=== PATIENT | male | born 1955 | race Hispanic/Latino ===

== ENCOUNTER 2019-12-07 07:27 | Day surgery (SDC) | payer OTHER ==
--- OUTSIDE RECORDS SUMMARY | 2019-12-07 07:30 | XMS REPORT ---
:1955 [facility] Address [address] [place] [address] Dr. Anderson. [address] [place] [id number] Care Team Providers Name Role Phone Unavailable Unavailable Unavailable Problems This patient has no known problems. Allergies, Adverse Reactions, Alerts This patient has no known allergies or adverse reactions. Medications This patient has no known medications. Encounters Start End Encounter Admission Attending Care Care Encounter Date/Time Date/Time Type Type Clinicians Facility Department ID 2019-10-20 2019-10-19 Inpatient [facility] MED [id number] 18:41:00 13:46:00 2019-10-03 2019-10-03 Outpatient [facility] CAR [id number] 08:35:00 08:35:00
[2019-12-07] MEDS ORDERED: NA CHLORIDE 0.9% 250 ML ONE ×2 (08:07→10:25)
[2019-12-07 09:17] VITALS: BP 131/62; TEMP 98; O2SAT 100; BMI 27.2
[2019-12-07 10:21] LABS: Urine Appearance CLEAR; Urine Bilirubin NEGATIVE (NEG); Urine Blood NEGATIVE (NEG); Urine Color YELLOW; Urine Glucose NEGATIVE (NEG); Urine Protein NEGATIVE (NEG); Urine pH 6.5 (5.0-7.0)
[2019-12-07 10:33] LABS: Urine Microscopic Reflex NO UMIC
[2019-12-07 15:21] LABS: Hematocrit 23.9 % (39.6-49.0)
== END 2019-12-07 15:17 | disposition home or self-care (01) ==
LOC: DS 07:27
PROVIDERS: ATTEND Internal Medicine Medical Oncology
DX: D64.9 Anemia, unspecified (principal); D72.819 Decreased white blood cell count, unspecified
CPT/HCPCS: 36415; 86900; 86157; 86850; 86901; 85018; 85014; 81003; 36430; P9016 ×2; J7030 ×2

== ENCOUNTER 2020-03-30 11:10 | Day surgery (SDC) | payer OTHER ==
[2020-03-30] MEDS ORDERED: NA CHLORIDE 0.9% 250 ML ONE (11:22)
--- OUTSIDE RECORDS SUMMARY | 2020-03-30 12:08 | XMS REPORT ---
:[address] [facility] t Address [address] [place] [address] Care Team Providers Name Role Phone Unavailable Unavailable Unavailable Problems This patient has no known problems. Allergies, Adverse Reactions, Alerts This patient has no known allergies or adverse reactions. Social History Smoking Status Start Date Stop Date Source Former Smoker [facility] Medications Ordered Filled Start Stop Current Ordering Indication Dosage Frequency Signature Comments Components Source Medication Medication Date Date Medication? Clinician (SIG) Name Name allopurinol allopurinol No 1 Q1D allopurino [facility] 300 mg 300 mg l 300 mg da tablet Take tablet Take tablet Medical 1 tablet 1 tablet Take 1 Group every day every day tablet by oral by oral every day route for route for by oral 30 days. 30 days. route for 30 days. Aspir-81 mg Aspir-81 mg No 1 Q1D Aspir-81 [facility] tablet,charmaine tablet,charmaine mg d a yed release yed release tablet,del Medical Take 1 Take 1 ayed Group tablet tablet release every day every day Take 1 by oral by oral tablet route. route. every day by oral route. atorvastati atorvastati No atorvastat [facility] n 40 mg n 40 mg in 40 mg da tablet tablet tablet Medical Group Claritin 10 Claritin 10 No 1 Q1D Claritin [facility] mg tablet mg tablet 10 mg da Take 1 Take 1 tablet Medical tablet tablet Take 1 Group every day every day tablet by oral by oral every day route. route. by oral route. colchicine colchicine No 1capsul Q1D colchicine [facility] 0.6 mg 0.6 mg e(s) 0.6 mg da capsule capsule capsule Medica l Take 1 Take 1 Take 1 Group capsule capsule capsule every day every day every day by oral by oral by oral route. route. route. colchicine colchicine No 1 Q1D colchicine [facility] 0.6 mg 0.6 mg 0.6 mg da tablet Take tablet Take tablet Medical 1 tablet 1 tablet Take 1 Group every day every day tablet by oral by oral every day route as route as by oral needed for needed for route as 30 days. 30 days. needed for 30 days. ferrous ferrous No ferrous [place] r sulfate sulfate sulfate da 325mg 1 tab 325mg 1 tab 325mg 1 Medical daily daily tab daily Group lisinopril lisinopril No 1 Q1D lisinopril [facility] 20 mg 20 mg 20 mg da tablet Take tablet Take tablet Medical 1 tablet 1 tablet Take 1 Group every day every day tablet by oral by oral every day route. route. by oral route. metoprolol metoprolol No metoprolol [facility] tartrate 25 tartrate 25 tartrate da mg tablet mg tablet 25 mg Medi vish tablet Group ticagrelor ticagrelor No 1 BID ticagrelor [facility] 90 mg 90 mg 90 mg da tablet Take tablet Take tablet Medical 1 tablet 1 tablet Take 1 Group twice a day twice a day tablet by oral by oral twice a route. route. day by oral route. Immunizations Ordered Immunization Filled Immunization Date Status Commen ts Source Name Name influenza, influenza, 2019-09-05 Completed [facility] injectable, injectable, 00:00:00 [facility] p quadrivalent quadrivalent Vital Signs Vital Name Observation Time Observation Value Comments Source BP Diastolic 2019-11-28 00:00:00 70 mm[facility]Hg[facility] Height 2019-11-28 00:00:00 67 [facility]_i[facility] BMI (Body Mass 2019-11-28 00:00:00 28.3 kg/m2 [facility]) Group BP Systolic 2019-11-28 00:00:00 123 mm[Hg] [facility] Body Weight 2019-11-28 00:00:00 2888 [oz_av] [facility] BP Diastolic 2019-09-08 00:00:00 66 mm[Hg] [facility] Height 2019-09-08 00:00:00 67 [in_i] [facility] BMI (Body Mass 2019-09-08 00:00:00 27 kg/m2 [facility]) Group BP Systolic 2019-09-08 00:00:00 135 mm[Hg] [facility] Body Weight 2019-09-08 00:00:00 172.2 [lb_av] [facility] BP Diastolic 2018-12-24 00:00:00 70 mm[Hg] [facility] Height 2018-12-24 00:00:00 67 [in_i] [facility] BMI (Body Mass 2018-12-24 00:00:00 28 kg/m2 [facility]) Group BP Systolic 2018-12-24 00:00:00 142 mm[Hg] [facility] Body Weight 2018-12-24 00:00:00 178.5 [lb_av] [facility] BP Diastolic 2018-12-01 00:00:00 73 mm[Hg] [facility] Height 2018-12-01 00:00:00 67 [in_i] [facility] BMI (Body Mass 2018-12-01 00:00:00 28 kg/m2 [facility]) Group BP Systolic 2018-12-01 00:00:00 141 mm[Hg] [facility] Body Weight 2018-12-01 00:00:00 2856 [oz_av] [facility] Procedures Procedure Date / Time Performed Performing Clinician [facility] e US, duplex, arterial, 2018-12-01 00:00:00 [facility] lower extremity Group Encounters Start End Encounter Admission Attending Care Care Encounter Source Date/Time Date/Time Type Type Clinicians Facility Department ID 2019-12-15 Outpatient [facility] MED [id number] BL 16:19:55 2019-11-28 2019-11-28 Kota [facility] [place] - [id number] [facility] 00:00:00 00:00:00 Christiano Khan Medical Medical MD: [address] [place] [address] [address], [place] [address] , Ph. 2019-10-20 2019-10-19 Inpatient [facility] MED [id number] [facility] 18:41:00 13:46:00 2019-10-03 2019-10-03 Outpatient [facility] CAR [id number] [facility] 08:35:00 08:35:00 2019-09-08 2019-09-08 [place] [facility] [place] - [id number] [facility] 00:00:00 00:00:00 Christiano [facility] Medical MD: [address] [place] [address] Family [address], [place] [address] , Ph. 2018-12-24 2018-12-24 N[place] [facility] [place] - [id number] M atagor 00:00:00 00:00:00 Doug Michel MD: Medical Medica l [address] [place] [address], General [address], [place] [address] , Ph. [phone] 2018-12-01 2018-12-01 Kota [facility] [place] - [id number] [facility] 00:00:00 00:00:00 Charmaine Chance Medical MD: [address] [place] [address], Family [address], [place] [address] , Ph. Results This patient has no known results.
[2020-03-30 15:48] VITALS: BP 125/58; TEMP 98.5; O2SAT 100; BMI 28.5
[2020-03-30 17:33] LABS: Hematocrit 25.7 % (39.6-49.0)
== END 2020-03-30 17:23 | disposition home or self-care (01) ==
LOC: DS 11:10
PROVIDERS: ATTEND Internal Medicine Medical Oncology
DX: D64.9 Anemia, unspecified (principal); D75.81 Myelofibrosis; I25.10 Atherosclerotic heart disease of native coronary artery without angina pectoris; D59.9 Acquired hemolytic anemia, unspecified
CPT/HCPCS: 36415; 86900; 86850; 86870; 86901; 85018; 85014; 86922 ×2; 36430; P9040 ×2; J7030

== ENCOUNTER 2020-04-27 07:13 | Day surgery (SDC) | payer OTHER ==
[2020-04-26 08:41] LABS: Absolute Lymphocytes (CBC) 0.6 K/uL (0.7-4.9); Basophils % 1.1 % (0-1.3); Lymphocytes % 22.3 % (15.3-44.8); MPV 9.3 fL (7.6-11.3); RBC Red Blood Cell Count 2.18 M/uL (4.33-5.43)
[2020-04-26 13:21] LABS: Toxic Granulation NOTED
[2020-04-26 13:22] LABS: Anisocytosis 2+; Blood Morphology Comment NOTED (NOT SEEN); Elliptocytes 1+; Platelet Estimate ADEQ; Platelets, Giant 2+; Polychromasia 1+; Teardrop Cell 1+
[2020-04-26 13:23] LABS: Hematocrit 19.3 % (39.6-49.0)
--- OUTSIDE RECORDS SUMMARY | 2020-04-27 07:19 | XMS REPORT | Continuity of Care Document ---
:1955 Author Organization [facility] t Address [address] [place] [address] Care Team Providers Name Role Phone Unavailable Unavailable Unavailable Problems This patient has no known problems. Allergies, Adverse Reactions, Alerts This patient has no known allergies or adverse reactions. Social History Smoking Status Start Date Stop Date Source Former Smoker [facility] Medications Ordered Filled Start Stop Current Ordering Indication Dosage Frequency Signature Comments Components Source Medication Medication Date Date Medication? Clinician (SIG) Name Name allopurinol allopurinol No allopurino [facility] 300 mg 300 mg l [...] mg da tablet tablet tablet Medical Group Bactrim DS Bactrim DS No 1 Q12H Bactrim DS [facility] 800 mg-160 800 mg-160 800 mg-160 da mg tablet mg tablet mg tablet Medical Take 1 Take 1 Take 1 Group tablet tablet tablet every 12 every 12 every 12 hours by hours by hours by oral route oral route oral route for 10 for 10 for 10 days. days. days. Brilinta 90 Brilinta 90 No Brilinta [facility] mg tablet mg tablet 90 mg da Take 1 Take 1 tablet Medical tablet tablet Take 1 Group twice a day twice a day tablet by oral by oral twice a route. route. day by oral route. Claritin 10 Claritin 10 No 1 Q1D [...] oral route. route. route. colchicine colchicine No colchicine [facility] 0.6 mg 0.6 mg 0.6 mg da tablet Take tablet Take tablet Medical 1 tablet 1 tablet Take 1 Group every day every day tablet by oral by oral every day route as route as by oral needed for needed for route as 30 days. 30 days. needed for 30 days. danazol 200 danazol 200 No 1capsul BID danazol [facility] mg capsule mg capsule e(s) 200 mg d a Take 1 Take 1 capsule Medical capsule capsule Take 1 Group twice a day twice a day capsule by oral by oral twice a route. route. day by oral route. ferrous ferrous No ferrous [facility] sulfate sulfate sulfate da 325mg 1 tab 325mg 1 tab 325mg 1 Medical daily daily tab daily Group Jakafi 10 Jakafi 10 No Jakafi 10 [facility] mg tablet mg tablet mg tablet da Medical Group lisinopril lisinopril No lisinopril [facility] 20 mg 20 mg 20 mg da tablet Take tablet Take tablet Medical 1 tablet 1 tablet Take 1 Group every day every day tablet by oral by oral every day route. route. by oral route. methylpredn methylpredn No methylpred [facility] isolone 4 isolone 4 nisolone 4 da mg tablets mg tablets mg tablets Medical in a dose in a dose in a dose Group pack Take 1 pack Take 1 pack Take dose pk by dose pk by 1 dose pk oral route oral route by oral as as route as directed. directed. directed. metoprolol metoprolol No metoprolol [facility] tartrate 25 tartrate 25 tartrate da mg tablet mg tablet 25 mg Medi vish tablet Group Immunizations Ordered Immunization Filled Immunization Date Status Commen ts Source Name Name influenza, influenza, 2019-09-05 Completed [place] injectable, injectable, 00:00:00 [facility] Grou p quadrivalent quadrivalent Vital Signs Vital Name Observation Time Observation Value Comments Source BP Diastolic 2020-04-23 00:00:00 63 mm[Hg] [facility] Height 2020-04-23 00:00:00 67 [in_i] [facility] BMI (Body Mass 2020-04-23 00:00:00 26.8 kg/m2 [facility] Index) Group BP Systolic 2020-04-23 00:00:00 115 mm[Hg] [facility] Body Weight 2020-04-23 00:00:00 2736 [oz_av] [facility] BP Diastolic 2019-11-28 00:00:00 70 mm[Hg] [facility] Height 2019-11-28 00:00:00 67 [in_i] [facility] BMI (Body Mass 2019-11-28 00:00:00 28.3 kg/m2 [facility] Medical Index) Group BP Systolic 2019-11-28 00:00:00 123 mm[Hg] [facility] Body Weight 2019-11-28 00:00:00 2888 [oz_av] [facility] BP Diastolic 2019-09-08 00:00:00 66 mm[Hg] [facility] Height 2019-09-08 00:00:00 67 [in_i] [facility] BMI (Body Mass 2019-09-08 00:00:00 27 kg/m2 [facility] Medical Index) Group BP Systolic 2019-09-08 00:00:00 135 mm[Hg] [facility] Body Weight 2019-09-08 00:00:00 172.2 [lb_av] [facility] BP Diastolic 2018-12-24 00:00:00 70 mm[Hg] [facility] Height 2018-12-24 00:00:00 67 [in_i] [facility] BMI (Body Mass 2018-12-24 00:00:00 28 kg/m2 [facility] BP Systolic 2018-12-24 00:00:00 142 mm[Hg] [facility] Body Weight 2018-12-24 00:00:00 178.5 [lb_av] [facility] BP Diastolic 2018-12-01 00:00:00 73 mm[Hg] [facility] Height 2018-12-01 00:00:00 67 [in_i] [facility] BMI (Body Mass 2018-12-01 00:00:00 28 kg/m2 [facility] Index) Group BP Systolic 2018-12-01 00:00:00 141 mm[Hg] [facility] Body Weight 2018-12-01 00:00:00 2856 [oz_av] [facility] Procedures Procedure Date / Time Performed Performing Clinician Sour e US, duplex, arterial, 2018-12-01 00:00:00 [facility] lower extremity [facility] Plan of Care Planned Activity Planned Date Details Comments Source Diagnostic Test 2020-04-23 urinalysis, dipstick [facility] Pending 00:00:00 [code = urinalysis, Group dipstick] Diagnostic Test 2020-04-23 culture, urine + [facility] Pending 00:00:00 sensitivity [code = Group culture, urine + sensitivity] Instructions [facility] Encounters Start End Encounter Admission Attending Care Care Encounter Source Date/Time Date/Time Type Type Clinicians Facility Department ID 2019-12-15 Outpatient [facility] MED [id number] MH BL 16:19:55 2020-04-23 2020-04-23 Angélica [facility] [place] - [id number] M atagor 00:00:00 00:00:00 Discovery andreina Luis GEOPHYSICAL 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 2019-11-28 2019-11-28 Kota [facility] [place] - [id number] [facility] 00:00:00 00:00:00 Christiano Khan [facility] Medical MD: [address] [address] , Ph. 2019-10-20 2019-10-19 Inpatient U [facility] MED [id number] [facility] 18:41:00 13:46:00 2019-10-03 2019-10-03 Outpatient [facility] CAR [id number] [facility] 08:35:00 08:35:00 2019-09-08 2019-09-08 Kota [facility] [place] - [id number] [facility] 00:00:00 00:00:00 Christiano Khan Medical Medical MD: [address] [place] [address] Family [address], [place] [address] , Ph. 2018-12-24 2018-12-24 N[place] [facility] [place] - [id number] Barron atajeremy 00:00:00 00:00:00 Doug Michel MD: Medical Medica l [address] [place] [address], General [address], [place] [address] , Ph. [phone] 2018-12-01 2018-12-01 Kota [facility] [place] - [id number] [facility] 00:00:00 00:00:00 Charmaine Chance Medical MD: [address] [place] [address], [facility] [address], [place] [address] , Ph. Results Test Description Test Time Test Comments Results Result Comments Source Urinalysis complete W Reflex Culture panel - Urine 2018-11-17 2 07:24:00 Test Item Value Reference Range Interpretation Comme nts Color of Urine by Auto (test code = 07052-6) yellow Appearance of Urine (test code = 5767-9) clear clear Glucose [Presence] in Urine by Automated test strip negative ne gative (test code = 84749-1) Bilirubin.total [Mass/volume] in Urine (test code = negative ne gative 1978-04) Ketones [Mass/volume] in Urine by Automated test strip negative negative (test code = 01195-3) Specific gravity of Urine by Automated test strip (test 1.021 1.003-1.030 code = 70068-7) blood urine (test code = blood urine) negative negative pH of Urine (test code = 2756-5) 5.500 5-9 protein urine (UA) (test code = protein urine (UA)) trace ne gative Urobilinogen [Presence] in Urine (test code = 39913-7) normal 0.2-1.0 Nitrite [Presence] in Urine by Test strip (test code = negative negative 5802-4) Leukocyte esterase [Presence] in Urine by Automated negative ne gative test strip (test code = 76239-9) Erythrocytes [#/volume] in Urine by Automated count <1 0- 5 (test code = 798-9) Leukocytes [#/area] in Urine sediment by Automated <1 0-5 count (test code = 10038-4) Epithelial cells [Presence] in Urine sediment by Light <1 0-5 microscopy (test code = 89442-1) Bacteria identified in Urine by Culture (test code = none detected none detect 630-4) Casts [#/area] in Urine sediment by Automated count none detected n one detect (test code = 66708-8) urine culture added? (test code = urine culture added?) [facility] W Auto Differential panel - [id number] 07:24:00 Test Item Value Reference Range Interpretation Comments white blood count (test code = 4.5 K/uL 4.0-12.3 white blood count) red blood count (test code = red 3.05 M/uL 3.80-5.80 L blood count) Hemoglobin [Mass/volume] in Blood 8.0 g/dL 11.67-17.22 L (test code = 718-7) hematocrit (test code = hematocrit) 26.1 % 35.0-51.0 L Erythrocyte mean corpuscular volume 85.4 fL 78-96 [Entitic volume] (test code = 37364-2) Erythrocyte mean corpuscular 26.1 pg 26.8-33.4 L hemoglobin [Entitic mass] (test code = 20405-5) mean corpuscular HGB conc (test 30.6 g/dL 32.3-36.7 L code = mean corpuscular HGB conc) red cell distribution width (test 22.0 % 11.6-15.4 H code = red cell distribution width) Platelets [#/volume] in Blood (test 312 K/uL 115-328 code = 48346-9) Platelet mean volume [Entitic 7.5 fL 8.4-11.8 L volume] in Blood (test code = 02754-8) Neutrophils.band form/100 58.1 % 44.7-82.4 leukocytes in Blood (test code = 17067-6) Lymphocytes/100 leukocytes in Body 28.6 % 10.0-50.0 fluid (test code = 67218-8) Monocytes/100 leukocytes in Blood 7.4 % 3.9-13.4 by Automated count (test code = 5905-5) Eosinophils/100 leukocytes in Blood 4.4 % 0.0-6.43 by Automated count (test code = 713-8) Basophils/100 leukocytes in Blood 1.5 % 0.0-0.72 H by Automated count (test code = 706-2) [facility], [id number] 07:24:00 NeutrophilsBandLymphocyteAtypical LymphMonocyteEosinophilBasophilPlatelet EstimatePlatelet MorphologyAnisocytosisGiant PlateletsUmmc [place] Comprehensive metabolic 2000 panel - Serum or [id number] 07:24:00 Test Item Value Reference Range Interpretation Comments glucose (test code = glucose) 110 mg/dL 82-115 Urea nitrogen [Mass/volume] in 18 mg/dL 8-23 Serum or Plasma (test code = 3094-0) Osmolality of Serum or Plasma 288 280-300 (test code = 2692-2) creatinine (test code = 1.1 mg/dL 0.70-1.20 creatinine) glomerular filtration rate (test >60.00 code = glomerular filtration rate) Urea nitrogen/Creatinine [Mass 16.4 12-20 Ratio] in Serum or Plasma (test code = 3097-3) sodium level (test code = sodium 143 mmol/L 135-145 level) Potassium [Moles/volume] in Body 4.9 mmol/L 3.5-5.2 fluid (test code = 2821-7) chloride level (test code = 106 mmol/L 98-108 chloride level) CO2 (test code = CO2) 26 mmol/L 21-32 anion gap (test code = anion gap) 15.9 mEq/L 12-20 calcium level (test code = calcium 9.6 mg/dL 8.8-10.2 level) total protein (test code = total 7.6 g/dL 6.6-8.7 protein) albumin (test code = albumin) 4.6 g/dL 3.5-5.2 globulin (test code = globulin) 3.0 gm/dL A/G ratio (test code = A/G ratio) 1.5 >1.0 bilirubin,total (test code = 1.6 mg/dL 0.0-1.2 H bilirubin,total) AST/SGOT (test code = AST/SGOT) 26 U/L 15-40 Alanine aminotransferase 12 U/L 0-41 [Enzymatic activity/volume] in Serum or Plasma (test code = 1742-6) Alkaline phosphatase [Enzymatic 102 U/L 40-130 activity/volume] in Serum or Plasma (test code = 6768-6) [facility] panel - Serum or [id number] 07:24:00 Test Item Value Reference Range Interpretation Comments cholesterol level (test code = 104 mg/dL 150-200 L cholesterol level) triglycerides level (test code = 157 mg/dL <150 H triglycerides level) HDL cholesterol (test code = HDL 22 mg/dL >55 L cholesterol) LDL cholesterol direct (test code = 61 mg/dL <100 LDL cholesterol direct) cholesterol risk ratio (test code = 4.727 cholesterol risk ratio) [facility] A1c [Mass/volume] in [id number] 07:24:00 Test Item Value Reference Range Interpretation Comments Hemoglobin A1c in Blood (test code = 4.9 % 4.0-6.0 03080-2) [facility] [Units/volume] in Serum or [id number] 07:24:00 Test Item Value Reference Range Interpretation Comments Thyrotropin [Units/volume] in 2.62 uIU/mL 0.36-3.74 Serum or Plasma (test code = 3016-3) [facility], serum or [id number] 07:24:00 Test Item Value Reference Range Interpretation Comments total prostate screening (test 0.35 NG/mL 0.0-4.00 code = total prostate screening) [facility]
[2020-04-27] MEDS ORDERED: NA CHLORIDE 0.9% 500 ML ONE (07:44)
[2020-04-27 08:43] VITALS: O2SAT 100; BMI 27.6
[2020-04-27 08:44] VITALS: BP 102/43; TEMP 97.1
[2020-04-27 14:37] LABS: Hematocrit 22.2 % (39.6-49.0)
== END 2020-04-27 14:26 | disposition home or self-care (01) ==
LOC: DS 07:13
PROVIDERS: ATTEND Internal Medicine Medical Oncology
DX: D64.9 Anemia, unspecified (principal); D75.81 Myelofibrosis; D59.9 Acquired hemolytic anemia, unspecified
CPT/HCPCS: 85025; 36415; 86900; 86850; 86901; 85018; 85014; 86922 ×2; 36430; P9040 ×2; J7030

== ENCOUNTER 2020-06-01 13:43 | Inpatient (IN) | payer OTHER ==
--- OUTSIDE RECORDS SUMMARY | 2020-06-01 14:00 | XMS REPORT | Continuity of Care Document ---
:1955 Author Organization [facility] t Address [address] [place] [address] Care Team Providers Name Role Phone MARKY VILLARREAL Primary Care Physician Unavailable MARKY VILLARREAL Attending Clinician Unavailable KATINA QUINTANA Attending Clinician Unavailable Magui Castellanos RN Attending Clinician Unavailable Rhonda Olivarez RN Attending Clinician Unavailable Josesito VELASCO MSN, Stanleyu Attending Clinician Unavailable Katina Melgar Attending Clinician Warner Ramirez RN Attending Clinician Unavailable Eric FARAH Attending Clinician Sherita FIGUEROA Attending Clinician Miles DURHAM S Attending Clinician Unavailable TALHA Attending Clinician Unavailable Talha DRY HOUSE ATTENDANT Attending Clinician Phi FERRER Attending Clinician TIERRA PETERSON Attending Clinician Unavailable Tierra Peterson MD Attending Clinician Karley Muñoz MD Attending Clinician Karley MUÑOZ Attending Clinician Unavailable Chavez FIGUEROA Attending Clinician Unavailable Audie MACDONALD Attending Clinician Josias FIGUEROA Attending Clinician Kenya VELASCO, M Attending Clinician Unavailable Mickey VELASCO Attending Clinician Unavailable Saul Rock Attending Clinician Tone Florentino RN Attending Clinician Unavailable Patrick Fajardo MD Attending Clinician Phi VELASCO Attending Clinician Sydni FIGUREOA Attending Clinician Unavailable Torrey VELASCO Attending Clinician Unavailable María Carlos Attending Clinician Unavailable SHERITA Admitting Clinician Unavailable Payers Payer Name Policy Type Policy Number Effective Date Expiration Date Shaun holcomb [facility] [id number] 2020 00:00:00 ALL SAVEGHDAA [facility] [id number] 2016 00:00:00 Problems Condition Condition Condition Status Onset Resolution Last Treating Co mments Source Name Details Category Date Date Treatment Clinician Date Hyperkalem Hyperkalem Disease Active 2019-0 M D ia ia 05-02 Anderso 00:00: n 00 Other Other Disease Active acute acute 05-01 Anderso kidney kidney 00:00: n failure failure 00 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 Social History Social Habit Start Date Stop Date Quantity Comments Source History of tobacco Cigarette Smoker MD [place]man use Sex Assigned At M MD Barros on Exposure to Not sure MD Pittman SARS-CoV-2 (event) Cigarettes smoked 2020-05-01 2020-05-01 MD Yeison posada current (pack per 00:00:00 00:00:00 day) - Reported Cigarette 2020-05-01 2020-05-01 MD [place]man pack-years 00:00:00 00:00:00 Tobacco use and 2020-05-01 2020-05-01 Never used MD Barros on exposure 00:00:00 00:00:00 Alcohol intake 2020-05-01 2020-05-01 Ex-drinker MD Julia burnham 00:00:00 00:00:00 (finding) Tobacco Comment 2020-01-19 2020-01-19 Have not smoke in MD Pittman 00:00:00 00:00:00 years Smoking Status Start Date Stop Date Source Former smoker 2020-05-01 00:00:00 2020-05-01 00:00:00 MD Angel slade Medications Ordered Filled Start Stop Current Ordering Indication Dosage Frequency Signature Comments Components Source Medication Medication Date Date Medication? Clinician (SIG) Name Name valACYclovi 2020- Yes Myelofibros 500mg Take 1 MD r (VALTREX) 05-11 is tablet Angel so 500 mg 00:00: 04:59 (500 mg) n tablet 00 :00 by mouth daily for 30 days. Start after completion of the 1000mg BID dose aspirin 81 2020-0 Yes 81mg Take 81 mg M D mg EC 6-25 by mouth Anderso tablet 19:16: daily. n 34 ticagrelor 2019- Yes 90mg Take 90 mg M D (BRILINTA) 25 by mouth Angel so 90 mg 19:16: twice n tablet 34 daily. cetirizine Yes 10mg Take 10 mg M D (ZyrTEC) 10 25 by mouth Yeison rso mg tablet 19:16: daily. n 34 ferrous 2019- No 325mg Take 325 MD sulfate 325 05-05 06-20 mg by Papo o mg (65 mg 21:58: 00:00 mouth n elemental 25 :00 daily. iron per tablet) tablet sulfamethox 2019- No 1{tbl} Take 1 M D azole-trime 05-05 06-20 tablet by An derso thoprim 21:58: 00:00 mouth n (BACTRIM 25 :00 twice DS) 800 daily. mg-160 mg per tablet sodium Yes Myelofibros Inject 10 MD chloride 05-05 is mL (1 Anderso (NS) 0.9% 00:00: syringe) n flush 00 into each syringe 10 lumen of mL central venous catheter daily as directed. allopurinol Yes Myelofibros 150mg Take 0.5 MD (ZYLOPRIM) 05-04 is tablets Papo o 300 mg 00:00: (150 mg) n tablet 00 by mouth daily. ertapenem 2019- No Myelofibros 1000mg Infuse MD (INVanz) IV 05-04 is 1,000 mg And erso prescriptio 00:00: 04:59 intravenou n n (Home 00 :00 sly daily Use) for 8 days. valACYclovi 2019-2019- No Myelofibros 1000mg Take 1 MD r (VALTREX) 05-04 is tablet Angel so 1000 mg 00:00: 04:59 (1,000 mg) n tablet 00 :00 by mouth every 12 (twelve) hours for 7 days. ertapenem 2019- No Myelofibros 1000mg Infuse MD (INVanz) IV 05-04 is 1,000 mg And erso prescriptio 00:00: 00:00 intravenou n n (Home 00 :00 sly daily. Use) danazol 2019- Yes Myelofibros 200mg Take 1 MD (DANOCRINE) 04-03 is capsule Angel so 200 mg 00:00: (200 mg) n capsule 00 by mouth twice daily. ciprofloxac 2019- Myelofibros 500mg Take 1 MD in HCl 04-03 is tablet Anderso (CIPRO) 500 00:00: 00:00 (500 mg) n mg tablet 00 :00 by mouth twice daily for 14 days. loratadine 2019- No 10mg Take 10 mg MD (CLARITIN) 02-13 by mouth Yeison rso 10 mg 13:41: 00:00 daily. n tablet 42 :00 JAKAFI 10 2019- Yes Myelofibros 10mg Take 1 MD mg tablet 3-13 is tablet (10 Yeison rso 00:00: mg) by n 00 mouth twice daily. atorvastati 2019- Yes 1{tbl} Take 1 MD n (LIPITOR) 3-02 tablet by And erso 40 mg 00:00: mouth n tablet 00 daily. lisinopril 2019- 2020- No 1{tbl} Take 1 MD (PRINIVIL,Z 01-14 tablet by An derso ESTRIL) 20 00:00: 00:00 mouth n mg tablet 00 :00 daily. allopurinol 2019- 2020- No 1{tbl} Take 1 M D (ZYLOPRIM) 01-14 tablet by And erso 300 mg 00:00: 00:00 mouth n tablet 00 :00 daily. metoprolol 2019-0 Yes 1{tbl} Take 1 MD tartrate 2-08 tablet by Papo scruggs (LOPRESSOR) 00:00: mouth n 25 mg 00 daily. tablet Hold if SBP<140. colchicine 2018-11 2020- No 1{capsu Take 1 M D 0.6 mg cap 2-05 21-20 le} capsule by An derso 00:00: 00:00 mouth n 00 :00 daily. allopurinol allopurinol No allopurino [place] 300 mg [...] Source Name Name influenza, influenza, 2019-09-05 Completed Ness injectable, injectable, 00:00:00 [facility] quadrivalent quadrivalent Vital Signs Vital Name Observation Time Observation Value Comments Source WEIGHT 2020-05-10 00:00:00 77.2 kg WEIGHT 2020-05-10 00:00:00 77.2 kg BP Diastolic 2020-04-23 00:00:00 63 mm[Hg] [facility] Height 2020-04-23 00:00:00 67 [in_i] [facility] BMI (Body Mass 2020-04-23 00:00:00 26.8 kg/m2 [facility] BP Systolic 2020-04-23 00:00:00 115 mm[Hg] [facility] Body Weight 2020-04-23 00:00:00 2736 [oz_av] [facility] BP Diastolic 2019-11-28 00:00:00 70 mm[Hg] [facility] Height 2019-11-28 00:00:00 67 [in_i] [facility] BMI (Body Mass 2019-11-28 00:00:00 28.3 kg/m2 [facility]) Group BP Systolic 2019-11-28 00:00:00 123 mm[Hg] [facility] Body Weight 2019-11-28 00:00:00 2888 [oz_av] [facility] BP Diastolic 2019-09-08 00:00:00 66 mm[Hg] [facility] Height 2019-09-08 00:00:00 67 [in_i] [facility] BMI (Body Mass 2019-09-08 00:00:00 27 kg/m2 [facility] BP Systolic 2019-09-08 00:00:00 135 mm[Hg] [facility] Body Weight 2019-09-08 00:00:00 172.2 [lb_av] [facility] BP Diastolic 2018-12-24 00:00:00 70 mm[Hg] [facility] Height 2018-12-24 00:00:00 67 [in_i] [facility] BMI (Body Mass 2018-12-24 00:00:00 28 kg/m2 [facility] BP Systolic 2018-12-24 00:00:00 142 mm[Hg] [facility] Body Weight 2018-12-24 00:00:00 178.5 [lb_av] [facility] BP Diastolic 2018-12-01 00:00:00 73 mm[Hg] [facility] Height 2018-12-01 00:00:00 67 [in_i] [facility] BMI (Body Mass 2018-12-01 00:00:00 28 kg/m2 [facility]) [facility] BP Systolic 2018-12-01 00:00:00 141 mm[Hg] [facility] Body Weight 2018-12-01 00:00:00 2856 [oz_av] [facility] Systolic blood 2020-05-10 19:12:11 156 mm[Hg] pressure Diastolic blood 2020-05-10 19:12:11 78 mm[Hg] MD Madelyn larsen pressure Heart rate 2020-05-10 19:12:11 63 /min MD Angel slade Body temperature 2020-05-10 19:12:11 36.72 Jovita MD Genesis marshallon Respiratory rate 2020-05-10 19:12:11 16 /min MD Genesis li Body weight 2020-05-10 19:12:11 77.2 kg MD Angel slade BMI 2020-05-10 19:12:11 27.95 kg/m2 MD Angel slade Oxygen saturation in 2020-05-10 19:12:11 100 /min MD [place] Arterial blood by Pulse oximetry Body height 2020-05-01 19:09:37 166.2 cm MD Angel slade Procedures Procedure Date / Time Performing Clinician Source Performed TYPE AND SCREEN 2020-05-10 13:31:00 Jennifer Palencia MD COMPLETE BLOOD COUNT W/ 2020-05-10 13:31:00 Jennifer Palencia MD DIFFERENTIAL TOTAL PROTEIN 2020-05-10 13:31:00 Jennifer Palencia MD ALBUMIN LEVEL 2020-05-10 13:31:00 Jennifer Palencia MD CALCIUM LEVEL TOTAL 2020-05-10 13:31:00 Jennifer Palencia MD And erson PHOSPHORUS LEVEL 2020-05-10 13:31:00 Jennifer Palencia MD Papo on GLUCOSE, RANDOM 2020-05-10 13:31:00 Jennifer Palencia MD BLOOD UREA NITROGEN 2020-05-10 13:31:00 Jennifer Palencia MD And erson SERUM CREATININE 2020-05-10 13:31:00 Jennifer Palencia MD on URIC ACID 2020-05-10 13:31:00 Jennifer Palencia MD FRACTIONATED BILIRUBIN 2020-05-10 13:31:00 Jennifer Palencia MD ALKALINE PHOSPHATASE 2020-05-10 13:31:00 Jennifer Palencia MD LACTATE DEHYDROGENASE 2020-05-10 13:31:00 Palencia, Jennifer MD A nderson ALANINE AMINOTRANSFERASE 2020-05-10 13:31:00 Jennifer Palencia ELECTROLYTE PANEL 2020-05-10 13:31:00 Jennifer Palencia MD Angel son MAGNESIUM LEVEL 2020-05-10 13:31:00 Jennifer Palencia MD Andbismark n ABORH 2020-05-10 13:31:00 Jennifer Palencia MD Andbismark burnham ANTIBODY SCREEN 2020-05-10 13:31:00 Jennifer Palencia MD Andbismark burnham Results CBC 2020-05-10 13:31:00 Jennifer Palencia MD MANUAL DIFFERENTIAL 2020-05-10 13:31:00 Jennifer Palencia MD And erson SERUM CREATININE 2020-05-10 13:31:00 Jennifer Palencia MD Papo on .GLOMERULAR FILTRATION RATE 2020-05-10 13:31:00 Luz Palencia MD TMP INTERPRETATION ANTIBODY 2020-05-10 13:31:00 Luz Palencia MD SCREEN NEGATIVE CLOT EXPIRATION DATE 2020-05-10 13:31:00 Jennifer Palencia MD COMPLETE BLOOD COUNT W/ 2020-05-05 08:20:00 Marky Villarreal MD DIFFERENTIAL GLUCOSE, RANDOM 2020-05-05 08:20:00 Marky Villarreal MD CALCIUM LEVEL TOTAL 2020-05-05 08:20:00 Marky Villarreal MD And erson BLOOD UREA NITROGEN 2020-05-05 08:20:00 Marky Villarreal MD And erson SERUM CREATININE 2020-05-05 08:20:00 Marky Villarreal MD Papo on POTASSIUM LEVEL 2020-05-05 08:20:00 Marky Villarreal MD Andbismark n MAGNESIUM LEVEL 2020-05-05 08:20:00 Marky Villarreal MD Andbismark burnham CHLORIDE LEVEL 2020-05-05 08:20:00 Marky Villarreal MD Andbismark n CARBON DIOXIDE LEVEL 2020-05-05 08:20:00 Marky Villarreal MD TOTAL PROTEIN 2020-05-05 08:20:00 Marky Villarreal MD n ALBUMIN LEVEL 2020-05-05 08:20:00 Marky Villarreal MD Andbismark burnham PHOSPHORUS LEVEL 2020-05-05 08:20:00 Marky Villarreal MD Papo on FRACTIONATED BILIRUBIN 2020-05-05 08:20:00 Marky Villarreal MD ALKALINE PHOSPHATASE 2020-05-05 08:20:00 Marky Villarreal MD ALANINE AMINOTRANSFERASE 2020-05-05 08:20:00 Marky Villarreal URIC ACID 2020-05-05 08:20:00 Marky Villarreal MD LACTATE DEHYDROGENASE 2020-05-05 08:20:00 Marky Villarreal MD nderson PROTHROMBIN TIME 2020-05-05 08:20:00 Marky Villarreal MD Papo on PARTIAL THROMBOPLASTIN TIME 2020-05-05 08:20:00 Adelaida Villarreal MD DIMER 2020-05-05 08:20:00 Marky Villarreal MD FIBRINOGEN ACTIVITY 2020-05-05 08:20:00 Marky Villarreal MD And erson BASIC METABOLIC PANEL, 2020-05-05 08:20:00 Ezequiel Bhat MD CALCIUM IONIZED TYPE AND SCREEN 2020-05-05 08:20:00 MD Zain Lomo ABORH 2020-05-05 08:20:00 MD Zain Lo ANTIBODY SCREEN 2020-05-05 08:20:00 MD Zain Lo BLOOD UREA NITROGEN 2020-05-05 08:20:00 Florencio Cabrera MD Angel son ELECTROLYTE PANEL 2020-05-05 08:20:00 Florencio Cabrera MD CALCIUM IONIZED, VENOUS 2020-05-05 08:20:00 Florencio Cabrera MD nderson Results CBC 2020-05-05 08:20:00 Marky Villarreal MD MANUAL DIFFERENTIAL 2020-05-05 08:20:00 Marky Villarreal MD And erson SERUM CREATININE 2020-05-05 08:20:00 aMrky Villarreal MD Papo on .GLOMERULAR FILTRATION RATE 2020-05-05 08:20:00 Adelaida Villarreal MD ANION GAP 2020-05-05 08:20:00 Marky Villarreal MD CLOT EXPIRATION DATE 2020-05-05 08:20:00 Tierra Peterson MD And alex Olson TMP INTERPRETATION ANTIBODY 2020-05-05 08:20:00 MD Zain Lo SCREEN NEGATIVE Wesley TRANSFUSE RED BLOOD CELLS 2020-05-04 23:39:17 Barron Lo BASIC METABOLIC PANEL, 2020-05-04 23:22:00 Ezequiel Bhat MD CALCIUM IONIZED GLUCOSE LEVEL 2020-05-04 23:22:00 Florencio Cabrera MD BLOOD UREA NITROGEN 2020-05-04 23:22:00 Florencio Cabrera MD son ELECTROLYTE PANEL 2020-05-04 23:22:00 Florencio Cabrera MD SERUM CREATININE 2020-05-04 23:22:00 Florencio Cabrera MD .GLOMERULAR FILTRATION RATE 2020-05-04 23:22:00 Florencio Cabrera MD CALCIUM IONIZED, VENOUS 2020-05-04 23:22:00 Florencio Cabrera MD nderson XR CHEST 2 VW 2020-05-04 19:35:00 Jennifer Palencia MD PREPARE RBC 2020-05-04 10:35:00 MD Zain Lo COMPLETE BLOOD COUNT W/ 2020-05-04 09:17:00 Marky Villarreal MD DIFFERENTIAL GLUCOSE, RANDOM 2020-05-04 09:17:00 Marky Villarreal MD CALCIUM LEVEL TOTAL 2020-05-04 09:17:00 Marky Villarreal MD And erson BLOOD UREA NITROGEN 2020-05-04 09:17:00 Marky Villarreal MD And erson SERUM CREATININE 2020-05-04 09:17:00 Marky Villarreal MD Papo on SODIUM LEVEL 2020-05-04 09:17:00 Marky Villarreal MD POTASSIUM LEVEL 2020-05-04 09:17:00 Marky Villarreal MD Andbismark n MAGNESIUM LEVEL 2020-05-04 09:17:00 Marky Villarreal MD CHLORIDE LEVEL 2020-05-04 09:17:00 Marky Villarreal MD Andbismark n CARBON DIOXIDE LEVEL 2020-05-04 09:17:00 Marky Villarreal MDson TOTAL PROTEIN 2020-05-04 09:17:00 Marky Villarreal MD Andbismark n ALBUMIN LEVEL 2020-05-04 09:17:00 Marky Villarreal MD n PHOSPHORUS LEVEL 2020-05-04 09:17:00 Marky Villarreal MD Papo on FRACTIONATED BILIRUBIN 2020-05-04 09:17:00 Marky Villarreal MD ALKALINE PHOSPHATASE 2020-05-04 09:17:00 Marky Villarreal MD ALANINE AMINOTRANSFERASE 2020-05-04 09:17:00 Marky Villarreal URIC ACID 2020-05-04 09:17:00 Marky Villarreal MD LACTATE DEHYDROGENASE 2020-05-04 09:17:00 Marky Villarreal MD ndealbino BASIC METABOLIC PANEL, 2020-05-04 09:17:00 Ezequiel Bhat MD CALCIUM IONIZED CALCIUM IONIZED, VENOUS 2020-05-04 09:17:00 Florencio Cabrera MD nderson Results CBC 2020-05-04 09:17:00 Marky Villarreal MD n MANUAL DIFFERENTIAL 2020-05-04 09:17:00 Marky Villarreal MD And erson SERUM CREATININE 2020-05-04 09:17:00 Marky Villarreal MD Papo on .GLOMERULAR FILTRATION RATE 2020-05-04 09:17:00 Adelaida Villarreal MD ANION GAP 2020-05-04 09:17:00 Marky Villarreal MD EKG, 12-LEAD (PORTABLE) 2020-05-04 00:00:00 Jennifer Palencia MD BASIC METABOLIC PANEL, 2020-05-03 19:37:00 Ezequiel Bhat MD CALCIUM IONIZED GLUCOSE LEVEL 2020-05-03 19:37:00 Florencio Cabrera MD BLOOD UREA NITROGEN 2020-05-03 19:37:00 Florencio Cabrera MD Angel son ELECTROLYTE PANEL 2020-05-03 19:37:00 Florencio Cabrera MD SERUM CREATININE 2020-05-03 19:37:00 Florencio Cabrera MD .GLOMERULAR FILTRATION RATE 2020-05-03 19:37:00 Florencio Cabrera MD CALCIUM IONIZED, VENOUS 2020-05-03 19:37:00 Florencio Cabrera MD nderson TRANSFUSE RED BLOOD CELLS 2020-05-03 19:36:56 Barron Lo TRANSFUSE RED BLOOD CELLS 2020-05-03 16:46:48 Barron Lo BASIC METABOLIC PANEL, 2020-05-03 10:49:00 Jennifer Palencia MD CALCIUM IONIZED GLUCOSE LEVEL 2020-05-03 10:49:00 Jennifer Palencia MD Andgibsono n ELECTROLYTE PANEL 2020-05-03 10:49:00 [facility]AT[facility] 2020-05-03 10:49:00 Jennifer Palencia MD Papo on .GLOMERULAR FILTRATION RATE 2020-05-03 10:49:00 Luz Palencia MD CALCIUM IONIZED, VENOUS 2020-05-03 10:49:00 Jennifer Palencia MD PREPARE RBC 2020-05-03 07:31:00 MD Zain Lo COMPLETE BLOOD COUNT W/ 2020-05-03 05:57:00 Marky Villarreal MD DIFFERENTIAL GLUCOSE, RANDOM 2020-05-03 05:57:00 Marky Villarreal MD CALCIUM LEVEL TOTAL 2020-05-03 05:57:00 Marky Villarreal MD And erson BLOOD UREA NITROGEN 2020-05-03 05:57:00 Marky Villarreal MD And erson SERUM CREATININE 2020-05-03 05:57:00 Marky Villarreal MD Papo on SODIUM LEVEL 2020-05-03 05:57:00 Marky Villarreal MD POTASSIUM LEVEL 2020-05-03 05:57:00 Marky Villarreal MD Andbismark n MAGNESIUM LEVEL 2020-05-03 05:57:00 Marky Villarreal MD n CHLORIDE LEVEL 2020-05-03 05:57:00 Marky Villarreal MD Andgibsono n CARBON DIOXIDE LEVEL 2020-05-03 05:57:00 Marky Villarreal MD TOTAL PROTEIN 2020-05-03 05:57:00 Marky Villarreal MD Andgibsono n ALBUMIN LEVEL 2020-05-03 05:57:00 Marky Villarreal MD Andgibsono n PHOSPHORUS LEVEL 2020-05-03 05:57:00 Marky Villarreal MD Papo on FRACTIONATED BILIRUBIN 2020-05-03 05:57:00 Marky Villarreal MD ALKALINE PHOSPHATASE 2020-05-03 05:57:00 Marky Villarreal MD ALANINE AMINOTRANSFERASE 2020-05-03 05:57:00 Marky Villarreal URIC ACID 2020-05-03 05:57:00 Marky Villarreal MD Andgibsono n LACTATE DEHYDROGENASE 2020-05-03 05:57:00 Marky Villarreal MD nderson Results CBC 2020-05-03 05:57:00 Marky Villarreal MD Andgibsono n MANUAL DIFFERENTIAL 2020-05-03 05:57:00 Marky Villarreal MD And erson SERUM CREATININE 2020-05-03 05:57:00 Marky Villarreal MD Papo on .GLOMERULAR FILTRATION RATE 2020-05-03 05:57:00 Adelaida Villarreal MD ANION GAP 2020-05-03 05:57:00 Marky Villarreal MD Andgibsono n BASIC METABOLIC PANEL, 2020-05-03 03:06:00 Jennifer Palencia MD CALCIUM IONIZED GLUCOSE LEVEL 2020-05-03 03:06:00 Jennifer Palencia MD Andgibsono n BLOOD UREA NITROGEN 2020-05-03 03:06:00 Jennifer Palencia MD And erson ELECTROLYTE PANEL 2020-05-03 03:06:00 Jennifer Palencia MD Angel son SERUM CREATININE 2020-05-03 03:06:00 Jennifer Palencia MD Papo on .GLOMERULAR FILTRATION RATE 2020-05-03 03:06:00 Luz Palencia MD CALCIUM IONIZED, VENOUS 2020-05-03 03:06:00 Jennifer Palencia MD HSV/VZV DNA DETECTION 2020-05-02 21:32:00 Jennifer Palencia MD nderson WOUND CULTURE W/ GRAM STAIN 2020-05-02 21:32:00 Luz Palencia MD GENERAL LABORATORY ADD ON 2020-05-02 21:00:00 Jennifer Palencia MD TEST BASIC METABOLIC PANEL, 2020-05-02 19:14:00 Jennifer Palencia MD CALCIUM IONIZED GLUCOSE LEVEL 2020-05-02 19:14:00 Jennifer Palencia MD BLOOD UREA NITROGEN 2020-05-02 19:14:00 Jennifer Palencia MD And erson ELECTROLYTE PANEL 2020-05-02 19:14:00 Jennifer Palencia MD Angel son SERUM CREATININE 2020-05-02 19:14:00 Jennifer Palencia MD Papo on .GLOMERULAR FILTRATION RATE 2020-05-02 19:14:00 Luz Palencia MD CALCIUM IONIZED, VENOUS 2020-05-02 19:14:00 Jennifer Palencia MD MAGNESIUM LEVEL 2020-05-02 19:14:00 Jennifer Palencia MD PHOSPHORUS LEVEL 2020-05-02 19:14:00 Jennifer Palencia MD Papo on TRANSFUSE RED BLOOD CELLS 2020-05-02 16:54:20 Barron Lo URINALYSIS WITH MICROSCOPIC 2020-05-02 15:03:00 Long Durand MD IF INDICATED PROTEIN / CREATININE RATIO 2020-05-02 15:03:00 Long Durand URINE URINALYSIS MICROSCOPIC 2020-05-02 15:03:00 Florencio Cabrera MDson PREPARE RBC 2020-05-02 11:48:00 MD Zain Lomo TYPE AND SCREEN 2020-05-02 11:19:00 Marky Villarreal MD ABORH 2020-05-02 11:19:00 Marky Villarreal MD ANTIBODY SCREEN 2020-05-02 11:19:00 Marky Villarreal MD COMPLETE BLOOD COUNT W/ 2020-05-02 11:19:00 Marky Villarreal MD DIFFERENTIAL GLUCOSE, RANDOM 2020-05-02 11:19:00 Marky Villarreal MD Andgibsono n CALCIUM LEVEL TOTAL 2020-05-02 11:19:00 Marky Villarreal MD And erson BLOOD UREA NITROGEN 2020-05-02 11:19:00 Marky Villarreal MD And erson SERUM CREATININE 2020-05-02 11:19:00 Marky Villarreal MD Papo on SODIUM LEVEL 2020-05-02 11:19:00 Marky Villarreal MD Anderso n POTASSIUM LEVEL 2020-05-02 11:19:00 Marky Villarreal MD Andgibsono n MAGNESIUM LEVEL 2020-05-02 11:19:00 Marky Villarreal MD Andgibsono n CHLORIDE LEVEL 2020-05-02 11:19:00 Marky Villarreal MD Anderso n CARBON DIOXIDE LEVEL 2020-05-02 11:19:00 Marky Villarreal MD TOTAL PROTEIN 2020-05-02 11:19:00 Marky Villarreal MD Anderso n ALBUMIN LEVEL 2020-05-02 11:19:00 Makry Villarreal MD Andgibsono n PHOSPHORUS LEVEL 2020-05-02 11:19:00 Marky Villarreal MD Papo on FRACTIONATED BILIRUBIN 2020-05-02 11:19:00 Marky Villarreal MD ALKALINE PHOSPHATASE 2020-05-02 11:19:00 Marky Villarreal MD ALANINE AMINOTRANSFERASE 2020-05-02 11:19:00 Marky Villarreal URIC ACID 2020-05-02 11:19:00 Marky Villarreal MD Anderso n LACTATE DEHYDROGENASE 2020-05-02 11:19:00 Marky Villarreal MD nderson PROTHROMBIN TIME 2020-05-02 11:19:00 Marky Villarreal MD Papo on PARTIAL THROMBOPLASTIN TIME 2020-05-02 11:19:00 Adelaida Villarreal MD D DIMER 2020-05-02 11:19:00 Marky Villarreal MD Andgibsono n FIBRINOGEN ACTIVITY 2020-05-02 11:19:00 Marky Villarreal MD And erson Results CBC 2020-05-02 11:19:00 Marky Villarreal MD MANUAL DIFFERENTIAL 2020-05-02 11:19:00 Marky Villarreal MD And erson SERUM CREATININE 2020-05-02 11:19:00 Marky Villarreal MD Papo on .GLOMERULAR FILTRATION RATE 2020-05-02 11:19:00 Adelaida Villarreal MD ANION GAP 2020-05-02 11:19:00 Marky Villarreal MD CLOT EXPIRATION DATE 2020-05-02 11:19:00 Marky Villarreal MD derson TMP INTERPRETATION ANTIBODY 2020-05-02 11:19:00 Adelaida Villarreal MD SCREEN NEGATIVE TMP CROSSMATCH 2020-05-02 11:19:00 Marky Villarreal MD INTERPRETATION EKG, 12-LEAD (PORTABLE) 2020-05-02 00:00:00 Jennifer Palencia MD US RENAL 2020-05-01 20:38:07 Marky Villarreal MD URINE CULTURE 2020-05-01 19:48:00 Marky Villarreal MD VRE CULTURE 2020-05-01 19:48:00 Marky Villarreal MD URINALYSIS WITH MICROSCOPIC 2020-05-01 19:48:00 Adelaida Villarreal MD IF INDICATED URINALYSIS MICROSCOPIC 2020-05-01 19:48:00 Marky Villarreal MD HC 2018-NCOV COVID-19 2020-05-01 17:35:00 Ana Valenitne MD And erson Maia TOTAL PROTEIN 2020-05-01 12:44:00 Katina Quintana MD ALBUMIN LEVEL 2020-05-01 12:44:00 Katina Quintana MD CALCIUM LEVEL TOTAL 2020-05-01 12:44:00 Katina Quintana MD PHOSPHORUS LEVEL 2020-05-01 12:44:00 Katina Quintana MD GLUCOSE, RANDOM 2020-05-01 12:44:00 Katina Quintana MD BLOOD UREA NITROGEN 2020-05-01 12:44:00 Katina Quintana MD Angel slade SERUM CREATININE 2020-05-01 12:44:00 Katina Quintana MD URIC ACID 2020-05-01 12:44:00 Katina Quintana MD FRACTIONATED BILIRUBIN 2020-05-01 12:44:00 Katina Quintana MD derson ALKALINE PHOSPHATASE 2020-05-01 12:44:00 Katina Quintana MD rson LACTATE DEHYDROGENASE 2020-05-01 12:44:00 Katina Quintana erstaiwo ALANINE AMINOTRANSFERASE 2020-05-01 12:44:00 Katina Quintana MD ELECTROLYTE PANEL 2020-05-01 12:44:00 Katina Quintana MD n MAGNESIUM LEVEL 2020-05-01 12:44:00 Katina Quintana MD ASPARTATE AMINOTRANSFERASE 2020-05-01 12:44:00 Katina Quintana TYPE AND SCREEN 2020-05-01 12:44:00 Katina Quintana MD COMPLETE BLOOD COUNT W/ 2020-05-01 12:44:00 Katina Quintana MD nderson DIFFERENTIAL SERUM CREATININE 2020-05-01 12:44:00 Katina Quintana MD .GLOMERULAR FILTRATION RATE 2020-05-01 12:44:00 Katina Quintana MD Results CBC 2020-05-01 12:44:00 Katina Quintana MD MANUAL DIFFERENTIAL 2020-05-01 12:44:00 Katina Quintana MD Angel slade ABORH 2020-05-01 12:44:00 Katina Quintana MD ANTIBODY SCREEN 2020-05-01 12:44:00 Katina Quintana MD CLOT EXPIRATION DATE 2020-05-01 12:44:00 Katina Quintana MD rson TMP INTERPRETATION ANTIBODY 2020-05-01 12:44:00 Katina Quintana MD SCREEN NEGATIVE TMP CROSSMATCH 2020-05-01 12:44:00 Katina Quintana MD INTERPRETATION COMPLETE BLOOD COUNT W/ 2020-04-12 14:02:00 MD Zain Degroot DIFFERENTIAL Wendy COMPREHENSIVE METABOLIC 2020-04-12 14:02:00 MD Zain Degroot PANEL Wendy PHOSPHORUS LEVEL 2020-04-12 14:02:00 Audie Zamora MD Yeison rson Wendy URIC ACID 2020-04-12 14:02:00 Audie Zamora MD Angel [facility] Wendy LACTATE DEHYDROGENASE 2020-04-12 14:02:00 MD Zain Degroot MAGNESIUM LEVEL 2020-04-12 14:02:00 MD Angel Degroot HLA STEM CELL COLLECTION - 2020-04-12 14:02:00 MD Zain Joiner HLA SCT Wendy Results CBC 2020-04-12 14:02:00 MD Angel Degroot MANUAL DIFFERENTIAL 2020-04-12 14:02:00 MD Genesis Degroot nderson Wendy GLUCOSE LEVEL 2020-04-12 14:02:00 Audie Zamora MD Angelwendy Nguyen BLOOD UREA NITROGEN 2020-04-12 14:02:00 MD Genesis Degroot nderson Wendy ELECTROLYTE PANEL 2020-04-12 14:02:00 Audie Zamora MD And erstaiwo Nguyen SERUM CREATININE 2020-04-12 14:02:00 Audie Zamora MD Yeisontone Nguyen .GLOMERULAR FILTRATION RATE 2020-04-12 14:02:00 MD Zain Cooper CALCIUM LEVEL TOTAL 2020-04-12 14:02:00 MD Genesis Degroot nderson Wendy ALBUMIN LEVEL 2020-04-12 14:02:00 MD Angel Degroot ALKALINE PHOSPHATASE 2020-04-12 14:02:00 MD Zain Degroot ALANINE AMINOTRANSFERASE 2020-04-12 14:02:00 MD Zain Degroot ASPARTATE AMINOTRANSFERASE 2020-04-12 14:02:00 MD Zain Joiner TOTAL PROTEIN 2020-04-12 14:02:00 [facility] Wendy FRACTIONATED BILIRUBIN 2020-04-12 14:02:00 Barron Degroot ABORH 2020-04-12 14:02:00 Audie [facility] Wendy ANTIBODY SCREEN 2020-04-12 14:02:00 Audie [facility] Wendy TMP INTERPRETATION ANTIBODY 2020-04-12 14:02:00 MD Zain Cooper SCREEN NEGATIVE Wendy CLOT EXPIRATION DATE 2020-04-12 14:02:00 MD Zain Degroot TOTAL PROTEIN 2020-04-03 16:58:00 Charlie Whitaker MD ALBUMIN LEVEL 2020-04-03 16:58:00 Charlie Whitaker MD CALCIUM LEVEL TOTAL 2020-04-03 16:58:00 Charlie Whitaker MD [facility] PHOSPHORUS LEVEL 2020-04-03 16:58:00 Charlie Whitaker MD GLUCOSE, RANDOM 2020-04-03 16:58:00 Charlie Whitaker MD BLOOD UREA NITROGEN 2020-04-03 16:58:00 Charlie Whitaker MD [facility] SERUM CREATININE 2020-04-03 16:58:00 Charlie Whitaker MD URIC ACID 2020-04-03 16:58:00 Charlie Whitaker MD FRACTIONATED BILIRUBIN 2020-04-03 16:58:00 Charlie Whitaker MDson ALKALINE PHOSPHATASE 2020-04-03 16:58:00 Charlie Whitaker MD Yeison rson LACTATE DEHYDROGENASE 2020-04-03 16:58:00 Charlie Whitaker MD And erson ALANINE AMINOTRANSFERASE 2020-04-03 16:58:00 Charlie Whitaker MD ELECTROLYTE PANEL 2020-04-03 16:58:00 Charlie [facility] MD [facility] MAGNESIUM LEVEL 2020-04-03 16:58:00 Charlie Whitaker MD ASPARTATE AMINOTRANSFERASE 2020-04-03 16:58:00 Charlie Whitaker TYPE AND SCREEN 2020-04-03 16:58:00 Charlie Whitaker MD COMPLETE BLOOD COUNT W/ 2020-04-03 16:58:00 Charlie Whitaker MD nderson DIFFERENTIAL FERRITIN LVL 2020-04-03 16:58:00 Charlie Whitaker MD IRON LEVEL 2020-04-03 16:58:00 Charlie Whitaker MD TRANSFERRIN 2020-04-03 16:58:00 Charlie Whitaker MD SERUM CREATININE 2020-04-03 16:58:00 Marky Villarreal MD Papo on .GLOMERULAR FILTRATION RATE 2020-04-03 16:58:00 Adelaida Villarreal MD Results CBC 2020-04-03 16:58:00 Marky Villarreal MD Anderso n MANUAL DIFFERENTIAL 2020-04-03 16:58:00 Marky Villarreal MD And erson ABORH 2020-04-03 16:58:00 Marky Villarreal MD Anderso n ANTIBODY SCREEN 2020-04-03 16:58:00 Marky Villarreal MD Anderso n CLOT EXPIRATION DATE 2020-04-03 16:58:00 Marky Villarreal MD TMP INTERPRETATION ANTIBODY 2020-04-03 16:58:00 Adelaida Villarreal MD SCREEN NEGATIVE URINE CULTURE 2020-03-06 19:59:00 Charlie Whitaker MD URINALYSIS WITH MICROSCOPIC 2020-03-06 19:59:00 Charlie Whitaker MD IF INDICATED URINALYSIS MICROSCOPIC 2020-03-06 19:59:00 Marky Villarreal MD TOTAL PROTEIN 2020-03-06 16:36:00 Dominick Martinez MD ALBUMIN LEVEL 2020-03-06 16:36:00 Dominick Martinez MD CALCIUM LEVEL TOTAL 2020-03-06 16:36:00 Dominick Martinez MD [facility] PHOSPHORUS LEVEL 2020-03-06 16:36:00 Dominick Martinez MD GLUCOSE, RANDOM 2020-03-06 16:36:00 Dominick Martinez MD BLOOD UREA NITROGEN 2020-03-06 16:36:00 Dominick Martinez MD Angel son SERUM CREATININE 2020-03-06 16:36:00 Dominick Martinez MD URIC ACID 2020-03-06 16:36:00 Dominick Martinez MD FRACTIONATED BILIRUBIN 2020-03-06 16:36:00 Dominick Martinez MDson ALKALINE PHOSPHATASE 2020-03-06 16:36:00 Dominick Martinez MD Yeison rson LACTATE DEHYDROGENASE 2020-03-06 16:36:00 Dominick Martinez MD And erson ALANINE AMINOTRANSFERASE 2020-03-06 16:36:00 Dominick Martinez MD ELECTROLYTE PANEL 2020-03-06 16:36:00 Dominick Martinez MD MAGNESIUM LEVEL 2020-03-06 16:36:00 Dominick Martinez MD ASPARTATE AMINOTRANSFERASE 2020-03-06 16:36:00 Dominick Martinez TYPE AND SCREEN 2020-03-06 16:36:00 Dominick Martinez MD COMPLETE BLOOD COUNT W/ 2020-03-06 16:36:00 Dominick Martinez MD nderson DIFFERENTIAL SERUM CREATININE 2020-03-06 16:36:00 Marky Villarreal MD Papo on .GLOMERULAR FILTRATION RATE 2020-03-06 16:36:00 Adelaida Villarreal MD Results CBC 2020-03-06 16:36:00 Marky Villarreal MD MANUAL DIFFERENTIAL 2020-03-06 16:36:00 Marky Villarreal MD And erson ABORH 2020-03-06 16:36:00 Marky Villarreal MD n ANTIBODY SCREEN 2020-03-06 16:36:00 Marky Villarreal MD CLOT EXPIRATION DATE 2020-03-06 16:36:00 Marky Villarreal MD TMP INTERPRETATION ANTIBODY 2020-03-06 16:36:00 Adelaida Villarreal MD SCREEN NEGATIVE SPIROMETRY W/O DILATORS, 2020-02-14 16:01:10 MD Zain Degroot DLCO AND BODY Wendy PLETHSMOGRAPHIC LUNG VOLUMES ECHOCARDIOGRAM 2D COMPLETE 2020-02-14 15:35:03 MD Zain Joiner CMV ANTIBODY IGG AND IGM 2020-02-14 12:05:00 MD Zain Degroot CMV ANTIBODY IGG AND IGM 2020-02-14 12:05:00 MD Zain Degroot PATH REVIEW Wendy TYPE AND SCREEN 2020-02-14 12:05:00 Katina Quintana MD COMPLETE BLOOD COUNT W/ 2020-02-14 12:05:00 Katina Quintana MD DIFFERENTIAL TOTAL PROTEIN 2020-02-14 12:05:00 Katina Quintana MD ALBUMIN LEVEL 2020-02-14 12:05:00 Katina Quintana MD CALCIUM LEVEL TOTAL 2020-02-14 12:05:00 Katina Quintana MD Angel son PHOSPHORUS LEVEL 2020-02-14 12:05:00 Katina Quintana MD GLUCOSE, RANDOM 2020-02-14 12:05:00 Katina Quintana MD BLOOD UREA NITROGEN 2020-02-14 12:05:00 Katina Quintana MD SERUM CREATININE 2020-02-14 12:05:00 Katina Quintana MD URIC ACID 2020-02-14 12:05:00 Katina Quintana MD FRACTIONATED BILIRUBIN 2020-02-14 12:05:00 Katina Quintana MD derson ALKALINE PHOSPHATASE 2020-02-14 12:05:00 Katina Quintana MD rson LACTATE DEHYDROGENASE 2020-02-14 12:05:00 Katina Quintana erstaiwo ALANINE AMINOTRANSFERASE 2020-02-14 12:05:00 Katina Quintana MD ELECTROLYTE PANEL 2020-02-14 12:05:00 Katina Quintana MD n MAGNESIUM LEVEL 2020-02-14 12:05:00 Katina Quintana MD ABORH 2020-02-14 12:05:00 Katina Quintana MD ANTIBODY SCREEN 2020-02-14 12:05:00 Katina Quintana MD Results CBC 2020-02-14 12:05:00 Katina Quintana MD MANUAL DIFFERENTIAL 2020-02-14 12:05:00 Katina Quintana MD Angel slade SERUM CREATININE 2020-02-14 12:05:00 Katina Quintana MD .GLOMERULAR FILTRATION RATE 2020-02-14 12:05:00 Katina Quintana MD RAPID PLASMA REAGIN (RPR) 2020-02-14 12:05:00 MD Zain Degroot HIV-1 STEPHANIE 2020-02-14 12:05:00 Audie Zamora MD Angel berlin Wendy CBC PATHOLOGY REVIEW 2020-02-14 12:05:00 Katina Quintana MD rson PRELIMINARY DIFFERENTIAL 2020-02-14 12:05:00 Katina Quintana MD CLOT EXPIRATION DATE 2020-02-14 12:05:00 Katina Quintana MD rson TMP INTERPRETATION ANTIBODY 2020-02-14 12:05:00 Katina Quintana MD SCREEN NEGATIVE TMP RPR PATH INTERP 2020-02-14 12:05:00 MD Genesis Degroot nderson Wendy TMP HIV-1 STEPHANIE PATH INTERP 2020-02-14 12:05:00 MD Zain Degroot AK CHG HEPATITIS B SURFACE 2020-02-14 12:05:00 MD Zain Joiner AG, EIA Wendy BONE MARROW REFERRAL 2020-02-02 00:00:00 System, Provider Not MD Pittman In TRANSFUSE RED BLOOD CELLS 2020-01-20 02:38:46 Katina Quintana MD HLA STEM CELL COLLECTION - 2020-01-19 22:43:00 MD Zain Joiner HLA SCT Wendy HLA ANTIBODY TEST 2020-01-19 22:43:00 MD Zain Degroot HLA AB Wendy PREPARE RBC 2020-01-19 18:46:00 Katina Quintana MD TOTAL PROTEIN 2020-01-19 17:08:00 Katina Quintana MD ALBUMIN LEVEL 2020-01-19 17:08:00 Katina Quintana MD CALCIUM LEVEL TOTAL 2020-01-19 17:08:00 Katina Quintana MD Angel berlin PHOSPHORUS LEVEL 2020-01-19 17:08:00 Katina Quintana MD GLUCOSE, RANDOM 2020-01-19 17:08:00 Katina Quintana MD BLOOD UREA NITROGEN 2020-01-19 17:08:00 Katina Quintana MD berlin SERUM CREATININE 2020-01-19 17:08:00 Katina Quintana MD URIC ACID 2020-01-19 17:08:00 Katina Quintana MD FRACTIONATED BILIRUBIN 2020-01-19 17:08:00 Katina Quintana MDson ALKALINE PHOSPHATASE 2020-01-19 17:08:00 Katina Quintana MD LACTATE DEHYDROGENASE 2020-01-19 17:08:00 Katina Quintana ALANINE AMINOTRANSFERASE 2020-01-19 17:08:00 Katina Quintana MD ELECTROLYTE PANEL 2020-01-19 17:08:00 Katina Quintana MD MAGNESIUM LEVEL 2020-01-19 17:08:00 Katina Quintana MD ASPARTATE AMINOTRANSFERASE 2020-01-19 17:08:00 Katina Quintana THYROXINE 2020-01-19 17:08:00 Katina Quintana MD THYROID STIMULATING HORMONE 2020-01-19 17:08:00 Katina Quintana MD IRON LEVEL 2020-01-19 17:08:00 Katina Quintana MD FERRITIN LVL 2020-01-19 17:08:00 Katina Quintana MD VITAMIN B12 LEVEL 2020-01-19 17:08:00 Katina Quintana MD FOLATE LEVEL 2020-01-19 17:08:00 Katina Quintana MD ERYTHROPOIETIN LEVEL 2020-01-19 17:08:00 Katina Quintana MD rstaiwo TYPE AND SCREEN 2020-01-19 17:08:00 Katina Quintana MD COMPLETE BLOOD COUNT W/ 2020-01-19 17:08:00 Katina Quintana MD nderson DIFFERENTIAL PROTHROMBIN TIME 2020-01-19 17:08:00 Katina Quintana MD PARTIAL THROMBOPLASTIN TIME 2020-01-19 17:08:00 Katina Quintana MD RESEARCH PROTOCOL 2020-01-19 17:08:00 Katina Quintana MD n [id number] SERUM CREATININE 2020-01-19 17:08:00 Katina Quintana MD .GLOMERULAR FILTRATION RATE 2020-01-19 17:08:00 Katina Quintana MD ABORH 2020-01-19 17:08:00 Katina Quintana MD Results CBC 2020-01-19 17:08:00 Katina Quintana MD ANTIBODY SCREEN 2020-01-19 17:08:00 Katina Quintana MD MANUAL DIFFERENTIAL 2020-01-19 17:08:00 Katina Quintana MD son CLOT EXPIRATION DATE 2020-01-19 17:08:00 Katina Quintana MD TMP INTERPRETATION ANTIBODY 2020-01-19 17:08:00 Katina Quintana MD SCREEN NEGATIVE TMP CROSSMATCH 2020-01-19 17:08:00 Katina Quintana MD INTERPRETATION CONFIRM ABORH TYPE 2020-01-19 16:53:00 Katina Quintana MD on BONE MARROW REFERRAL 2019-12-16 18:00:00 MD Yeison Deleon rstaiwo HISTORIC Pathology US, duplex, arterial, lower 2018-12-01 00:00:00 [facility] Plan of Care Planned Activity Planned Date Details Comments Source Diagnostic Test 2020-04-23 urinalysis, dipstick [facility] Pending 00:00:00 [code = urinalysis, Group dipstick] Diagnostic Test 2020-04-23 culture, urine + [facility] 00:00:00 sensitivity [code = Group culture, urine + sensitivity] Instructions [facility] Encounters Start End Encounter Admission Attending Care Care Encounter Source Date/Time Date/Time Type Type Clinicians Facility Department ID 2020-05-04 Inpatient EL MDA MDA [id number] 14:31:16 Julia burnham 2020-05-01 Inpatient EL MDA MDA [id number] 15:12:16 Julia burnham 2019-12-15 Outpatient [id number] [facility] 16:19:55 2020-06-14 2020-06-14 Outpatient AWILDA VILLARREAL, MDA MDA [id number] 00:00:00 00:00:00 MARKY burnham 2020-06-14 2020-06-14 Outpatient AWILDA QUINTANA, MDA MDA [id number] 00:00:00 00:00:00 KATINA burnham 2020-05-17 2020-05-17 Outpatient AWILDA QUINTANA, MDA MDA [id number] 08:40:21 23:59:00 KATINA burnham 2020-05-10 2020-05-10 Outpatient AWILDA VILLARREAL, MDA MDA [id number] 10:13:25 23:59:00 MARKY burnham 2020-05-10 2020-05-10 Outpatient AWILDA VILLARREAL, MDA MDA [id number] 13:08:48 15:10:17 MARKY burnham 2020-05-10 2020-05-10 Outpatient AWILDA PALENCIA, MDA MDA [id number] 08:00:00 10:12:00 JENNIFER burnham 2020-05-10 2020-05-10 Outpatient AWILDA PALENCIA, MDA MDA [id number] 08:19:22 08:19:22 JENNIFER burnham 2020-05-01 2020-05-05 Inpatient TIERRA MDA Leukemia [id number] 13:49:42 16:58:00 Papo PETERSON 2020-05-04 2020-05-[address] [facility] MDA MDA [id number] 16:00:30 16:22:25 Papo PETERSON 2020-05-04 2020-05-04 Inpatient AWILDA PALENCIA, MDA MDA [id number] 11:10:51 12:38:19 JENNIFER burnham 2020-05-01 2020-05-01 Inpatient SHERITA, MDA MDA [id number] 16:27:08 16:36:26 MARKY burnham 2020-05-01 2020-05-01 Outpatient AWILDA QUINTANA, MDA MDA [id number] 07:35:09 13:48:00 KATINA burnham 2020-05-01 2020-05-01 Outpatient AWILDA VILLARREAL, MDA MDA [id number] 07:48:23 12:25:06 MARKY burnham 2020-05-01 2020-05-01 Outpatient AWILDA QUINTANA, MDA MDA [id number] 00:00:00 00:00:00 KATINA burnham 2020-04-23 2020-04-23 Outpatient AWILDA ENCARNACION MDA MDA [id number] 09:40:20 23:59:00 Papo OSBORNE 2020-04-23 2020-04-23 Angélica [place] - [id number] M at[place]or 00:00:00 00:00:00 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 2019-11-28 2019-11-28 Kota [facility] [place] - [id number] [place] 00:00:00 00:00:00 Charmaine Chance MD: [address] [address] , Ph. 2019-10-20 2019-10-19 Inpatient U [facility] [id number] [facility] 18:41:00 13:46:00 2019-10-03 2019-10-03 Outpatient [facility] [id number] [facility] 08:35:00 08:35:00 2019-09-08 2019-09-08 Kota [facility] [place] - [id number] [place] 00:00:00 00:00:00 Charmaine Chance MD: [address] [address] , Ph. 2018-12-24 2018-12-24 [place] - [id number] M atagor 00:00:00 00:00:00 Doug Michel MD: Medical Medica l [address] [facility], General [address], [place] [address] , Ph. [phone] 2018-12-01 2018-12-01 [place] - [id number] [place] 00:00:00 00:00:00 Christiano Khan Medical Medical MD: [address] [facility], Family [address], [place] [address] , Ph. Results Test Description Test Time Test Comments Results Result Comments Source TMP Interpretation Antibody Screen Negative 2020-05-10 19:18 :40 Test Item Value Reference Range Interpretation Comme nts TMP Auto At the present CYNTHIA Neg ABSC time, patient REMI RICHTER MD - [id number] by: CYNTHIA RICHTER MD - [place] no [address]Dehalyd d Date/Time: 05.10.2020 14:18 PM CDT (test evidence of RBC Transcribed Date/Time: 05.10.2020 14:18 PM code = alloantibodies. CDTElectroni lizet Signed By: MD Julito LEZAMA [id number] on [id number]) 05.10.2020 14:1 8 PM MD [id number] 17:40:31 Test Item Value Reference Range Interpretation Comments ABORh. (test code = 882-1) A POS MD PittmanClot Expiration [id number] 17:40:24 Test Item Value Reference Range Interpretation Comments T & S Expiration (test code = 05/13/2020 5318) MD PittmanAntibody [id number] 17:39:34 Test Item Value Reference Range Interpretation Comments ABSC. (test code = 890-4) Negative ABSC MD PittmanQ[id number] 15:13:56 Test Item Value Reference Range Interpretation Comments Total Cells (test 100 code = 7642) Neutrophil % (test 46.0 % 42-66 The Neutr ophil code = 6491) count includes Bands. Lymphocyte % (test 40.0 % 24-44 code = 6194) Monocyte % (test code 7.0 % 2-7 = 6422) Eosinophil % (test 1.0 % 1-4 code = 5520) Basophil % (test code 2.0 % 0-1 H = 5068) Metamyelocyte % (test 3.0 % <=0.0 H The Me tamyelocyte code = 6399) count includes Myelocytes. Blasts % (test code = 1.0 % <=0.0 H 5111) NRBC (test code = 5.0 <=0.0 H 6472) Neutrophil Abs (test 0.97 K/uL 1.7-7.3 L code = 6492) Lymphocyte Abs (test 0.84 K/uL 1-4.8 L code = 6195) Monocyte Abs (test 0.15 K/uL 0.08-0.7 code = 6423) Eosinophil Abs (test 0.02 K/uL 0.04-0.4 L code = 5521) Basophil Abs (test 0.04 K/uL 0-0.1 code = 5069) RBC Morph (test code Present Normal A = 6942) PLT Morph (test code Present Normal A = 6646) Anisocytosis (test Present Not Present A code = 4811) Poik (test code = Present Not Present A 6840) Ovalocyte (test code Present Not Present A = 6584) Slide Comments (test See Note A Platele t morphology code = 5447) normal with occasional jeanine t platelet. PAULIE (test code = PAULIE) Schedule in Fast Track Lab Interpretation Abnormal (test code = 06726-1) MD Pittman.[id number] 15:13:54 Test Item Value Reference Range Interpretation Comments WBC (test code = 2.1 K/uL 4-11 L 8034) RBC (test code = 3.67 4.50- 6.00 M/uL L 6932) Hgb (test code = 10.6 14.0- 18.0 L 5898) gm/dL Hct (test code = 34.2 % 40-54 L 5860) MCV (test code = 93 fL 82-98 6222) MCH (test code = 28.9 pg 27-31 6220) MCHC (test code = 31.0 31.0- 36.0 6221) gm/dL RDW-SD (test code = 52.1 fL 35.1-46.3 H 6972) RDW-CV (test code = 15.6 % 12-15.5 H 6971) Platelet count (test 228 K/uL 140-440 code = 6832) MPV (test code = 9.7 fL 4-10.4 6282) INRBC (test code = 4.8 % <=0.0 H The INRBC 5974) (instrument NRB C) value reflects the enumerationof nucleated red b lood cells contained in a 200uL sampleo f whole blood analyzed by the instrument. Thi s value maydiffer from the NRBC v alue reported in a manual differential,wh ich is based on a 1 00 cell differenti al. PAULIE (test code = PAULIE) Schedule in Fast Track Lab Interpretation Abnormal (test code = 72195-6) MD PittmanFractionated [id number] 14:24:43 Test Item Value Reference Range Interpretation Comments Bili Total (test code 1.4 mg/dL <=1.2 H Indocy anine Green = 5096) (ICG) may cause falsely elevate d bilirubin resul ts. Total and direc t bilirubin must not be measured from s amples containing indo cyanine green. False el evation of total biliru bin can be seen in kavon ents with IgG concentrations above 28 g/L. Bili Direct (test code 0.3 mg/dL <=0.3 Indoc yanine Green = 5094) (ICG) may cause falsely elevate d bilirubin resul ts. Total and direc t bilirubin must not be measured from s amples containing indo cyanine green. Bili Indirect (test 1.1 mg/dL 0-0.9 H code = 5095) Lab Interpretation Abnormal (test code = 78757-4) MD PittmanGlucose, [id number] 14:24:42 Test Item Value Reference Range Interpretation Comments Glucose Random 96 mg/dL 70-199 Effective 05/17 05/31, (test code = the glucose 9360) reference inter vals have been updat ed based on [place] an Diabetes Associ ation guidelines (Standards of Medical Care in Diabetes 2016. Diabetes Care 2 016; 39: S13-S22).Fa sting blood glucose:Normal: 70 99 mg/dLImpaire d fasting glucose (increased risk for diabetes or pre-diabetes): 100 125 mg/dLDiabet es mellitus: >/=1 26 mg/dL Random bl ood glucose:Normal: 70 199 mg/dLNote: Random glucose >100 mg/dL is associ ated with increased risk for diabetes PAULIE (test code = Schedule in Fast PAULIE) Track MD PittmanUric [id number] 14:24:41 Test Item Value Reference Range Interpretation Comments Uric Acid (test code = 6.9 mg/dL 3.4-7 7955) PAULIE (test code = PAULIE) Schedule in Fast Track MD PittmanTotal [id number] 14:24:40 Test Item Value Reference Range Interpretation Comments Total Protein (test 7.9 g/dL 6.4-8.3 code = 7649) PAULIE (test code = PAULIE) Schedule in Fast Track [place] ZainPhosphorus [id number] 14:24:39 Test Item Value Reference Range Interpretation Comments Phosphorus (test code = 3.1 mg/dL 2.5-4.5 6817) PAULIE (test code = PAULIE) Schedule in Fast Track MD PittmanCalcium [id number] 14:24:38 Test Item Value Reference Range Interpretation Comments Calcium Lvl (test code = 10.3 mg/dL 8.4-10.2 H 5258) PAULIE (test code = PAULIE) Schedule in Fast Track Lab Interpretation (test Abnormal code = 30991-5) MD PittmanAlanine [id number] 14:24:37 Test Item Value Reference Range Interpretation Comments ALT (test code = 4705) 26 U/L <=41 PAULIE (test code = PAULIE) Schedule in Fast Track MD [id number] 14:24:35 Test Item Value Reference Range Interpretation Comments BUN (test code = 5055) 23 mg/dL 6-23 NC ZainGlomerular Filtration [id number] 14:24:34 Test Item Value Reference Range Interpretation Comments eGFR-AA (test code = 56 >=60 L Normal eGFR: >= 60 8062) mL/min/1.73 sq. mL/min/1.73 m2Note: m The eGFR is calculated usin g the CKD-EPI equatio n. The eGFR declin es with age. eGFR <60 mL/min/1.73 m2 is considered as "decreased". Th is equation should only be used for pat ients 18 and older. According to th e National Kidney Foundation's dney Disease Outcome Quality Initiat cristal (KDOQI) classification and 2012 Kidney Dis ease Improving Globa l Outcomes (KDIGO ) Clinical Practi ce Guideline, the stage of CKD should b e categorized bas ed on estimated GFR. Stage Description GFR mL/min/1.73 m21 Normal or high GFR >=902 M ildly decreased GFR 60-893a Mildly to moder ately decreased GFR 45-593b Moderat nate to severely decreased GFR 30-444 Severely decreased GFR 15-295 Kidney failure < 15 eGFR-ANN MARIE (test code = 48 >=60 L Normal eGFR: >= 60 8063) mL/min/1.73 sq. mL/min/1.73 m2Note: m The eGFR is calculated usin g the CKD-EPI equatio n. The eGFR declin es with age. eGFR <60 mL/min/1.73 m2 is considered as "decreased". Th is equation should only be used for pat ients 18 and older. According to th e National Kidney Foundation's dney Disease Outcome Quality Initiat cristal (KDOQI) classification and 2012 Kidney Dis ease Improving Globa l Outcomes (KDIGO ) Clinical Practi ce Guideline, the stage of CKD should b e categorized bas ed on estimated GFR. Stage Description GFR mL/min/1.73 m21 Normal or high GFR >=902 M ildly decreased GFR 60-893a Mildly to moder ately decreased GFR 45-593b Moderat nate to severely decreased GFR 30-444 Severely decreased GFR 15-295 Kidney failure < 15 PAULIE (test code = PAULIE) Schedule in Fast Track Lab Interpretation Abnormal (test code = 37958-8) MD PittmanMagnesium [id number] 14:24:33 Test Item Value Reference Range Interpretation Comments Magnesium (test code = 2.1 mg/dL 1.6-2.6 6359) PAULIE (test code = PAULIE) Schedule in Fast Track MD [id number] 14:24:32 Test Item Value Reference Range Interpretation Comments LDH (test code = 702 U/L 135-225 H Results gre ater 6111) than 1651 U/L m ay not be reliable due to matrix effect with extended diluti on as it exceeds t he senior automation engineer s recommended limit. Caution should be exercised when interpreting godoy ch values and done in conjunction wit h clinical contex t. PAULIE (test code = PAULIE) Schedule in Fast Track Lab Interpretation Abnormal (test code = 75298-0) MD PittmanAlkaline [id number] 14:24:31 Test Item Value Reference Range Interpretation Comments Alk Phos (test code = 93 U/L 40-129 4768) PAULIE (test code = PAULIE) Schedule in Fast Track MD PittmanAlbumin [id number] 14:24:30 Test Item Value Reference Range Interpretation Comments Albumin Lvl (test code 4.9 3.5- 5.2 gm/dL = 4763) PAULIE (test code = PAULIE) Schedule in Fast Track MD PittmanElectrolyte [id number] 14:24:29 Test Item Value Reference Range Interpretation Comments Sodium Lvl (test code = 143 136- 145 mEq/L 7355) Potassium Lvl (test 5.1 3.5- 5.1 mEq/L code = 6854) Chloride (test code = 105 98- 107 mEq/L 5279) CO2 (test code = 5227) 27 22- 29 mEq/L Anion Gap (test code = 11 4- 14 mEq/L 9325) PAULIE (test code = PAULIE) Schedule in Fast Track MD Pittman.Serum [id number] 14:24:27 Test Item Value Reference Range Interpretation Comments Creatinine (test code = 1.52 mg/dL 0.67-1.17 H 5399) PAULIE (test code = PAULIE) Schedule in Fast Track Lab Interpretation (test Abnormal code = 46978-6) MD PittmanWound Culture w/Gram [id number] 02:45:37 Test Item Value Reference Interpretation Comments Range Final Report (test Few Yeast A code = 8488) isolated...Moderate Staphylococcus coagulase negativeSusceptibility performed upon request. Plates will be held for 5 days...Normal site salvador present.Normal salvador consists of Rothia species like Path Review (test The results have been A code = 8492) reviewed and electronically signed by Pathologist:PATRICK FAYE MD #[id number] Gram Stain Report No WBC's seen.No organisms A (test code = seen. 60619-3) PAULIE (test code = Left lip PAULIE) Lab Interpretation Abnormal (test code = 60211-6) MD Hernadez Rectal [id number] 02:17:27 Test Item Value Reference Range Interpretation Comments Final Report (test No Vancomycin resistant code = 8488) Enterococci isolated Path Review - VRE The results have been (test code = 8485) reviewed and electronically signed by Pathologist:PATRICK FAYE MD #[id number] MD PittmanAnion [id number] 09:24:35 Test Item Value Reference Range Interpretation Comments Anion Gap (test code = 9325) 11 4- 14 mEq/L MD PittmanChloride [id number] 09:24:32 Test Item Value Reference Range Interpretation Comments Chloride (test code = 5279) 103 98- 107 mEq/L MD PittmanPotassium Snawu9643-37-37 09:24:29 Test Item Value Reference Range Interpretation Comments Potassium Lvl (test code = 6854) 4.3 3.5- 5.1 mEq/L MD PittmanSodium Pwvpz1065-84-06 09:24:25 Test Item Value Reference Range Interpretation Comments Sodium Lvl (test code = 7355) 139 136- 145 mEq/L MD PittmanCarbon Dioxide Ibnyl6701-96-14 09:24:18 Test Item Value Reference Range Interpretation Comments CO2 (test code = 5227) 25 22- 29 mEq/L MD PittmanPartial Thromboplastin [id number] 09:05:35 Test Item Value Reference Range Interpretation Comments PTT (test code = 29963-1) 36.5 24.2- 36.0 second(s) H Lab Interpretation (test code = Abnormal 12176-3) MD PittmanProthrombin [id number] 09:05:34 Test Item Value Reference Range Interpretation Comments PT (test code = 5902-2) 14.7 12.0- 14.3 second(s) H INR (test code = 6301-6) 1.16 0.90-1.10 H Lab Interpretation (test code = Abnormal 64466-5) MD PittmanNkeatfkqDwjzbwcafg1187-34-26 09:05:33 Test Item Value Reference Range Interpretation Comments Fibrinogen (test code = 3255-7) 499 mg/dL 214-503 MD PittmanXvvbdrtuR-Ufezw2754-64-20 09:05:32 Test Item Value Reference Range Interpretation Comments D-Dimer (test code = 0.68 0.10- 0.50 [place] [address]-2) mcg/ml FEU exclusion of ve nous thromboembolism is <0.50 mcg/mL FEUs (fi brinogen equivalent unit s). Lab Interpretation Abnormal (test code = 32805-8) MD PittmanCalcium Ionized, Kvtorw0287-14-90 08:28:58 Test Item Value Reference Range Interpretation Comments V Ion Ca (test code = 46572-1) 1.17 mmol/L 1.15-1.29 MD PittmanGlucose Jegkn1800-14-95 23:56:40 Test Item Value Reference Range Interpretation Comments Glucose Level (test 88 mg/dL 70-99 Referenc e range is valid code = 5699) for fasting spe cimens only. Guideline s established by the [place] [employer] [place] delines (Standards of M edical Care in Diabete s 2016. Diabetes Care 2 016; 39: S13-22) are gavino t a fasting glucose of greater than or equal to 126 mg/dL or a random glucose greater than or equal to 200 mg /dL with symptoms, that are confirmed by re peat testing on a di day, meet the c horace for diabetes me moni. MD PittmanX-ray Chest 2 Gpedj3183-41-45 19:49:29Central venous catheter appears to be in satisfactory position without visible complication. Interface, Radiology Results In - 05/04/2020 2:51 PM CDTFULL RESULT:Examination: XR CHEST 2 VW, 05/04/20202:35 PMClinical History: MyelofibrosisIndication: Confirm PICC placementComparison: NoneTechnique: Posteroanterior, lateral and dual-energy radiographs of the chest.Findings:A right longline catheter is in place with its tip about 3 to 4 cm below the azygos arch probably in the superior vena cava. Theheart size is normal. Coronary stents. No mediastinal adenopathy. No pleural effusion or pneumothorax. No focal pulmonary nodule or consolidation.IMPRESSION:Central venous catheter appears to be in satisfactory position without visible complication.MD PittmanPrealthea RBC:g1181, 1 Units 2020-05-04 11:13:01 Test Item Value Reference Range Interpretation Comments PRBC Product Ready 1 Red Blood Cells (test code = Available - 38273-4) Order Form 03 when ready for product issue. Unit Number (test [id number] code = 7002) Product Code (test [id number] code = 700) Unit Expiration [id number] (test code = ) Unit Blood Type 6200 (test code = 7004) Product Code Text RBCIRLR CP2D AS3 (test code = 500mL ) Crossmatch [id number] Expiration Date (test code = ) Unit Irradiated IRRADIATED (test code = 210796) Dispense Status ISSUED (test code = 700) Unit Blood Type A Positive ____ (test code = 700) _ ____ MD PittmanHSV/VZV DNA Mxyrziufb2663-98-03 18:04:18 Test Item Value Reference Range Interpretation Comments HSV/VZV Specimen Lip Info (test code = 9626) HSV-1 DNA (test code Positive Negative A = 9623) HSV-2 DNA (test code Negative Negative = 9624) VZV DNA (test code = Negative Negative HSV 1+2 /VZV DNA is a 9625) nucleic acid amplification t est (NAAT) intended for the qualitative detection and differentiation of herpes simplex virus type 1, herpes simplex virus t ype 2, and varicella-z doyle virus DNA isola jeovanny and purified fr om cutaneous or mucocutaneous l esions from symptomati c patients.Refere nce Range: DNA NegativeWhen in valid results are obt ained, a new specimen should be collected fo r repeat testing if clinically brian cated. PAULIE (test code = Left lip PAULIE) lesion Lab Interpretation Abnormal (test code = 98265-2) MD PittmanTMTae Interpretation Ibedlucmvk3257-94-41 18:01:42 Test Item Value Reference Range Interpretation Comments TMP XM Interp RBC units (test code = crossmatched for 7566) transfusion appear KIM BERLY compatible. XAVIER,Dictated by: ÁNGELA XAVIER, Dictated Date/Time: 04.16 13:01 PM CDT Transcribed [place] e/Time: 05.03.2020 13:0 1 PM CDTElectronical ly Signed By: ANA XAVIER, on 04.16 13:01 PM MD PittmanGeneral Laboratory Add-On Oxue2093-72-00 21:45:36 Test Item Value Reference Range Interpretation Comments Ordered (test code = Test Added 6568) Test Needed (test Magnesium and Phosphorus code = 7604) MD PittmanProtein/Creatinine Ratio Solhh9771-16-39 16:45:19 Test Item Value Reference Range Interpretation Comments UTP Ran (test code = 23 mg/dL Normal range not 7922) available for collections les s than 24 hours in [facility]. U Creatinine (test 65.8 mg/dL 40-278 The refer ence range code = 7725) listed is for f irst morning urine collection. U Prot/Creat (test 0.35 Normal ra nge not code = 7805) available for collections les s than 24 hoursin dura tion. MD PittmanUrinalysis with Dwcirquqidc9465-37-65 16:00:43 Test Item Value Reference Range Interpretation Comments UA WBC (test code = 170 0- 2 /HPF H 7904) UA RBC (test code = 2 0- 2 /HPF 7891) UA Mucous (test code = NOT SEEN TRACE /HPF 7887) UA Bacteria (test code 2+ NOT SEEN /HPF A = 7870) UA Squam Epi (test NOT SEEN OCC /HPF code = 7896) PAULIE (test code = PAULIE) Some reporting parameters within the Urinalysis test have changed due to the implementation of new instrumentation in the [facility] [place], allowing greater sensitivity of measurement. Urinalysis results reported by the [facility] using existing instrumentation, as well as Urinalysis testing performed manually or by backup methodology at the [facility] [place] will remain relatively unchanged. New reporting parameters and units will now be reported for all campuses. Lab Interpretation Abnormal (test code = 80206-0) MD PittmanUrinalysis w/Microscopic if Meleyncyt6410-73-38 15:54:49 Test Item Value Reference Range Interpretation Comments UA Color (test code = 7877) Yellow Yellow UA Appear (test code = 7868) Hazy Clear A UA Glucose (test code = 7881) NEG NEG mg/dL UA Bili (test code = 7871) NEG NEG UA Ketones (test code = 7884) NEG NEG mg/dL UA Spec Grav (test code = 7894) 1.013 1.002-1.035 UA Blood (test code = 7872) NEG NEG UA pH (test code = 7909) 6.0 4.5-8.0 UA Protein (test code = 7890) NEG NEG mg/dL UA Urobilinogen (test code = 7903) NEG NEG UA Nitrite (test code = 7888) POS NEG A UA Leuk Est (test code = 7886) Large NEG A Lab Interpretation (test code = Abnormal 32109-2) MD Roman COVID-19 (SOLE-CoV-2) PCR Hasaskrwujtu4948-19-44 12:05:10 Test Item Value Reference Interpretation Comments Range COVID19 SARS Inpatient Admission Indication (test code = 11398) COVID19 SARS Result Not Detected Not Detected (test code = 07114) COVID19 SARS SARS-CoV-2 NOT Detected. Interpretation (test Reference Range: Not code = 19331) Detected Methodology: The P[employer] RealTime SARS-CoV-2 assay is a qualitative real-time reverse manager nuclear polymerase chain reaction (molecular modeler-PCR) test to detect RNA from SARS-CoV-2 in nasal, nasopharyngeal and oropharyngeal swabs from patients with signs and symptoms of infection who are suspected of COVID-19 by their health care provider. The [employer] RealTime SARS-CoV-2 performed on the STEMpowerkids000 System is a dual target assay with primers and probes for the RdRp and N genes. Results must be interpreted within the context of all relevant clinical and laboratory findings, and epidemiological risk factors. Positive results are indicative of the presence of SARS-CoV-2 RNA; clinical correlation with patient history and other diagnostic information is necessary to determine patient infection status. Positive results do not rule out bacterial infection or co-infection with other viruses. Negative results do not preclude SARS-CoV-2 infection and should not be used as the sole basis for patient management decisions. The [employer] RealTime SARS-CoV-2 assay is for in vitro diagnostic use under FDA Emergency Use Authorization only. Testing is limited to laboratories certified under the Clinical Laboratory Improvement Amendments of 1988 (CLIA), 42U.S.C. 263a, to perform high complexity tests. The Test was performed by the CLIA-certified, high-complexity Molecular Diagnostics Laboratory ([facility]) at [facility] under the Food and Drug Administration (FDA) s Emergency Use Authorization. Factsheet for patients: https://www.[employer].org/ AbbottFactSheetPatientsFact sheet for healthcare providers: https://www.[employer].org/ AbbottFactSheetHCP Test performed by:The [facility] Oct0915 [place] [address] MD PittmanUS CRJJM3528-53-03 20:44:031. Normal renal cortical echogenicity.2. No evidence of hydronephrosis or nephrolithiasis.3. Simple right renal cyst. Interface, Radiology Results In - 05/01/2020 3:46 PM CDTFULL RESULT:Examination: US RENAL, 05/01/2020 3:38 PM.Clinical History: 65-year-old patient with history of myelofibrosis.Indication: Increased Creatinine Level.Comparison: None.Technique: Camejo scale and color Doppler evaluation of the kidneys and limited evaluation of the urinary bladder was performed.Findings:Normal bilateral renal cortical echogenicityThe right kidney measures 11.1 cm in length and the left measures 11.2 cm. No solid renal mass, hydronephrosis or shadowing calculus is seen.There is a simple cyst centered in the inferior renal parenchyma of the right kidney measuring approximately 3 x 2.8 x 3.2 cm.Evaluation of the urinary bladder is unremarkable.IMPRESSION:1. Normal renal cortical echogenicity.2. Noevidence of hydronephrosis or nephrolithiasis.3. Simple right renal cyst.MD PittmanAspartate Forxrssjfqreamlt3659-28-70 13:47:47 Test Item Value Reference Range Interpretation Comments AST (test code = 4731) 23 U/L <=40 MD PittmanHLA Stem Cell Fcakwipzew8937-35-38 16:19:12 Test Item Value Reference Range Interpretation Comments Specimen Received Yes (test code = 8893) PAULIE (test code = PAULIE) Has patient had a prior allogeneic transplant?->NoIs patient's WBC < 0.2?->NoDoes patient have blasts present in blood?->NoHas the patient been transfused with Granulocytes within 7 days?->No MD PittmanFerritin Aovwq5771-76-03 18:32:07 Test Item Value Reference Range Interpretation Comments Ferritin Lvl (test code = 5608) 534 ng/mL 30-400 H Lab Interpretation (test code = Abnormal 27417-9) MD PittmanTransferrin with [id number] 17:52:46 Test Item Value Reference Range Interpretation Comments Transferrin (test code = 7653) 201 mg/dL 200-360 TIBC (test code = 7532) 281 250- 450 mcg/dL MD PittmanIron Unzrg9952-47-52 17:52:45 Test Item Value Reference Range Interpretation Comments Iron (test code = 6066) 27 59- 158 mcg/dL L Lab Interpretation (test code = Abnormal 44080-3) MD PittmanComplete PFT ([place], DLCO, LV)2020-02-23 00:00:00 Test Item Value Reference Range Interpretation Comments FEV1 (L) pre (test code = 2.215 L 2.307-3.648 L 9505) FEV1/FVC (%) pre (test code = 72.083 % 67.372-85.57 9509) FVC (L) pre (test code = 3.073 L 3.104-4.689 L 9507) RV (L) (test code = 9514) 3.066 L 1.634-2.983 H TLC (L) (test code = 9513) 6.280 L 5.032-7.335 RV/TLC (%) (test code = 9517) 48.822 % 29.158-47.122 H DLCO_SB ml/(min*mmHg) (test 20.402 12.625- 29.212 code = 9515) ml/(min*mmHg) DLCOc_SB ml/(min*mmHg) (test 25.629 12.625- 29.212 code = 9516) ml/(min*mmHg) FVC (% pred) pre (test code = 79 % 9520) FEV1 (%pred) pre (test code = 74 % 9518) FEV1/FVC (% pred) pre (test 94 % code = 9522) TLC (% pred) (test code = 102 % 9526) RV (% pred) (test code = 133 % 9527) RV/TLC (% pred) (test code = 128 % 9528) DLCO_SB (% pred) (test code = 98 % 9529) DLCOc_SB (% pred) (test code 123 % = 9530) Lab Interpretation (test code Abnormal = 11070-4) MD [place] Inf Disease Path Iyrcbu3553-49-40 13:52:03 Test Item Value Reference Range Interpretation Comments TMP ID Path Serologic Interp (test screening assays code = 9016) for transfusion CYNTHIA RICHTER MD transmitted - [id number] by: diseases, CYNTHIA RICHTER MD - including HBcAb, 79934Yibgwv ed HBsAg, HCVAb, HIV Date/Time: 02.17.2020 1/2 Ag/Ab 8:52 AM CDT combination Transcribed [place] e/Time: immunoassay, and 02.17.2020 8:52 AM HTLV I/II Ab, are CDTElectro nically unremarkable, for Signed By: CYNTHIA KHALIL this patient, at MD ROBER - 1 9564 on this time. 02.17.2020 8:52 AM C MD [place] HIV-1 STEPHANIE PATH [id number] 13:52:02 Test Item Value Reference Range Interpretation Comments HIV-1 STEPHANIE Path Non Reactive Interp (test for HIV-1 Assay code = 9017) by Nucleic Acid ____CYNTHIA RICHTER MD - Testing. 33499Anebdjjn b y: CYNTHIA RICHTER MD - 51328Dusfyqwr D ate/Time: 02.17.2020 8:52 AM CDT Transcribed [place] e/Time: 02.17.2020 8:52 AM CDTElectronical ly Signed By: CYNTHIA DUTTON MD - [id number] on 02.16 8:52 AM C MD PittmanInfectious Disease Qpgrqgvc1408-29-70 06:11:09 Test Item Value Reference Range Interpretation Comments HBsAg. (test Non Reactive Non Reactive Performed at: code = 5747) [facility] [address] [place] [address] HBcAb. (test Non Reactive Non Reactive Performed at: code = 5742) [facility] [place] [address] [place] [address] HCVAb. (test Non Reactive Non Reactive Performed at: code = 5762) [facility] [place] [address] [place], [place] [address] HIV 1/2 Ag & Non Reactive Non Reactive Performed at:MD Mccall, 4th Gen [facility] (test code = Don[facility] [address]39 5 9280) [place] [address] HTLV I/II Ab. Non Reactive Non Reactive Performed at:M D (test code = [facility]) [facility] [address] [place] [address] PAULIE (test code Pre-SCT eval, pt is = PAULIE) requesting 02/13 MD PittmanHIV 1 [id number] 06:05:42 Test Item Value Reference Range Interpretation Comments HIV-1 STEPHANIE (test Non Reactive Non Reactive Performed at : code = 5797) [facility] [address] [place] [address] MD PittmanCMV Ab IgG+IgM Path Zulbcj7014-62-43 18:46:01CMV Panel PRPositive IgG with low IgM suggests previous infection. IVIG can give false positivity.High titers of IgG can give false negative IgM. Therefore, active disease ispossible but less likely with this pattern.Reviewed and Electronically signed by Pathologist:Kain Silvestre MD, PhD #[id number] Comment: Test performed by an immunoassay intended for the qualitative detection of IgG and IgM antibodiesto Cytomegalovirus (CMV) in human serum. When equivocal results are obtained, another specimen should be hlzesmabf26-71 days later. KAIN SILVESTRE MD,PhD - [id number] by: KAIN SILVESTRE MD, PhD - [id number] Date/Time: 02.15.2020 13:46 PM CDT Transcribed Date/Time: 02.15.2020 13:46 PM CDTElectronically Signed By: KAIN SILVESTRE MD, PhD - [id number] on 02.15.2020 13:46 PM [facility] ZainTMP RPR Path Utdnhmgbmpogaf5753-53-93 14:14:08 Test Item Value Reference Interpretation Comments Range TMP RPR Path The Rapid Interpretation Plasma Reagin (test code = (RPR) assay is CYNTHIA MIN 716075) negative. If a MD ROBER - syphilis 45760Utgxihwh b y: infection is CYNTHIA RICHTER MD - suspected, 754[address]Sanicebh please perform Date/Time: a Treponemal 9:14 AM CDT specific Transcribed [place] e/Time: screening 02.15.2020 9:14 AM assay. CDTElectronical ly Signed By: MILENA RICHTER MD - [id number] on 02.15.2020 9:14 AM C MD PittmanCMV Ab IgG+ScV9530-02-22 09:09:47 Test Item Value Reference Range Interpretation Comments CMV IgM Int (test code = 5219) Negative Negative CMV IgG Int (test code = 5217) Positive Negative A Lab Interpretation (test code = Abnormal 79050-8) MD PittmanRashayla Plasma Reagin (RPR) [Syphilis SCREENING]2020-02-15 05:02:04 Test Item Value Reference Range Interpretation Comments RPR Screening (test code = Non Reactive Non Reactive 921874) 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 Trans cribed Date/Time: 02.14.2020 10:4 1 AM CDTElectronical ly Signed By: RUBY SILVESTRE MD - [id number] on 02.14.2020 10:4 1 AM PAULIE (test Differential is referred code = PAULIE) to Pathologist for review. MD PittmanPreliminary Oauoboksyzqp9796-26-66 13:52:28 Test Item Value Reference Range Interpretation Comments Preliminary Diff See Note A This differ ential Comment (test code = require s pathologist 9643) review. These results are preliminary and all elements are godoy bject to change. Ple ase use caution in evaluating your patient based o n preliminary res ults. Preliminary Neutrophil 49.0 % 42-66 % (test code = 9644) Preliminary Lymphocyte 34.0 % 24-44 % (test code = 9645) Preliminary Monocyte % 9.0 % 2-7 H (test code = 9646) Preliminary Eosinophil 3.0 % 1-4 % (test code = 9647) Preliminary Basophil % 1.0 % 0-1 (test code = 9648) Preliminary 4.0 % <=0.0 H Metamyelocyte (test code = 9649) Preliminary ANC (test 1.23 K/uL 1.7-7.3 L code = 9654) Lab Interpretation Abnormal (test code = 24638-1) MD PittmanHLA Antibody Gnyh4740-37-66 20:02:06 Test Item Value Reference Range Interpretation Comments Specimen Received Yes (test code = 8893) PAULIE (test code = PAULIE) Is this antibody test for 'pre' or 'post' apheresis or drug treatment monitoring?->No MD PittmanConfirm JHQFh6515-23-86 18:54:31 Test Item Value Reference Range Interpretation Comments ABORh Confirm. (test code = 882-1) A POS MD PittmanHkfwjrnfTUD5537-07-80 18:47:34 Test Item Value Reference Range Interpretation Comments TSH (test code = 7578) 3.92 0.27- 4.20 mcunit/mL MD PittmanVitamin B12 Exaba9122-64-10 18:23:23 Test Item Value Reference Range Interpretation Comments Vitamin B12 Lvl (test code = 8017) 492 pg/mL 211-946 MD PittmanLuuhtlvrM71850-71-95 18:23:22 Test Item Value Reference Range Interpretation Comments T4 (test code = 7493) 9.6 4.5- 11.7 mcg/dL MD PittmanErythropoietin Lafvf6781-58-66 18:20:11 Test Item Value Reference Range Interpretation Comments Erythropo Lvl (test code = 5523) 129.2 2.6- 18.5 mIU/mL H Lab Interpretation (test code = Abnormal 99849-8) MD PittmanFolate Oezka1363-37-37 18:07:32 Test Item Value Reference Range Interpretation Comments Folate Lvl (test 6.1 ng/mL 4.8-24.2 Hemolyzed s pecimens with code = 5625) Hemolysis Index >30.0 (30 mg/dL or visibl e hemolysis) may cause interference an d give falsely high re sults. MD PittmanResearch Protocol [id number] 17:54:29 Test Item Value Reference Range Interpretation Comments Research Prot (test code = 7189) 611854 MD PittmanUrinalysis complete W Reflex Culture panel - Lhmtq7608-15-74 07:24:00 Test Item Value Reference Range Interpretation Comments Color of Urine by Auto (test yellow code = 82060-9) Appearance of Urine (test code clear clear = 5767-9) Glucose [Presence] in Urine by negative negative Automated test strip (test code = 46730-9) Bilirubin.total [Mass/volume] negative negative in Urine (test code = 1978-6) Ketones [Mass/volume] in Urine negative negative by Automated test strip (test code = 37859-8) Specific gravity of Urine by 1.021 1.003-1.030 Automated test strip (test code = 05213-1) blood urine (test code = blood negative negative urine) pH of Urine (test code = 5.500 5-9 2756-5) protein urine (UA) (test code = trace negative protein urine (UA)) Urobilinogen [Presence] in normal 0.2-1.0 Urine (test code = 52714-9) Nitrite [Presence] in Urine by negative negative Test strip (test code = 5802-4) Leukocyte esterase [Presence] negative negative in Urine by Automated test strip (test code = 21552-3) Erythrocytes [#/volume] in <1 0-5 Urine by Automated count (test code = 798-9) Leukocytes [#/area] in Urine <1 0-5 sediment by Automated count (test code = 47931-1) Epithelial cells [Presence] in <1 0-5 Urine sediment by Light microscopy (test code = 03035-4) Bacteria identified in Urine by none detected none detect Culture (test code = 630-4) Casts [#/area] in Urine none detected none detect sediment by Automated count (test code = 74413-1) urine culture added? (test code no = urine culture added?) [employer] W Auto Differential panel - [id number] 07:24:00 Test Item Value Reference Range Interpretation [...] fL 78-96 [Entitic volume] (test code = 83005-1) Erythrocyte mean corpuscular 26.1 pg 26.8-33.4 L hemoglobin [Entitic mass] (test code = 97566-9) mean corpuscular HGB conc (test 30.6 g/dL 32.3-36.7 L code = mean corpuscular HGB conc) red cell distribution width (test 22.0 % 11.6-15.4 H code = red cell distribution width) Platelets [#/volume] in Blood (test 312 K/uL 115-328 code = 59371-6) Platelet mean volume [Entitic 7.5 fL 8.4-11.8 L volume] in Blood (test code = 72525-7) Neutrophils.band form/100 58.1 % 44.7-82.4 leukocytes in Blood (test code = 37639-3) Lymphocytes/100 leukocytes in Body 28.6 % 10.0-50.0 fluid (test code = 60915-2) Monocytes/100 leukocytes in Blood 7.4 % 3.9-13.4 by Automated count (test code = 5905-5) Eosinophils/100 leukocytes in Blood 4.4 % 0.0-6.43 by Automated count (test code = 713-8) Basophils/100 leukocytes in Blood 1.5 % 0.0-0.72 H by Automated count (test code = 706-2) [facility], cjzhs0140-83-66 07:24:00 NeutrophilsBandLymphocyteAtypical LymphMonocyteEosinophilBasophilPlatelet EstimatePlatelet MorphologyAnisocytosisGiant PlateletsO[facility] Center Comprehensive metabolic 2000 panel - Serum or Hftrdj2234-53-35 07:24:00 Test Item Value Reference Range Interpretation [...] Serum or Plasma (test code = 6768-6) [facility] Center[facility] 1996 panel - Serum or Zwsrsg5583-62-09 07:24:00 Test Item Value Reference Range Interpretation Comments cholesterol level (test code = 104 mg/dL 150-200 L cholesterol level) triglycerides level (test code = 157 mg/dL <150 H triglycerides level) HDL cholesterol (test code = HDL 22 mg/dL >55 L cholesterol) LDL cholesterol direct (test code = 61 mg/dL <100 LDL cholesterol direct) cholesterol risk ratio (test code = 4.727 cholesterol risk ratio) [facility] CenterHemoglobin A1c [Mass/volume] in Hiofa2510-17-26 07:24:00 Test Item Value Reference Range Interpretation Comments Hemoglobin A1c in Blood (test code = 4.9 % 4.0-6.0 66115-3) [facility] CenterThyrotropin [Units/volume] in Serum or Rftfal4741-44-93 07:24:00 Test Item Value Reference Range Interpretation Comments Thyrotropin [Units/volume] in 2.62 uIU/mL 0.36-3.74 Serum or Plasma (test code = 3016-3) [facility] CenterPSA, serum or zrgslt9650-90-30 07:24:00 Test Item Value Reference Range Interpretation Comments total prostate screening (test 0.35 NG/mL 0.0-4.00 code = total prostate screening) [facility]
[2020-06-01 15:34] LABS: Hematocrit 25.5 % (39.6-49.0); Lymphocytes % 27.2 % (15.3-44.8); MPV 9.5 fL (7.6-11.3); RBC Red Blood Cell Count 2.92 M/uL (4.33-5.43)
[2020-06-01 15:47] LABS: Albumin 3.6 g/dL (3.4-5.0); Bilirubin Direct 0.3 mg/dL (0-0.2); Bilirubin Total 0.6 mg/dL (0.2-1.0); Potassium 4.2 mmol/L (3.5-5.1); Protein, Total 8.8 g/dL (6.4-8.2)
[2020-06-01 16:21] LABS: Urine Blood 2+ (NEG); Urine Glucose NEGATIVE (NEG); Urine Protein 2+ (NEG)
--- NOTE | 2020-06-01 16:24 | EDPHYS ---
Physician Documentation [facility] Name: Benito Rader Age: 65 yrs Sex: Male : 1955 Arrival Date: 06/01/2020 Time: 13:46 Bed 18 Private MD: ED Physician Edward Resendiz HPI: 06/01 17:32 This 65 yrs old Male presents to ER via Ambulatory with complaints of Kidney kdr Problem. 17:32 The patient had routine blood draw this morning and his renal function was noted to kdr have significantly deteriorated. He had been hospitalized at [facility] in April with UTI and renal issues and was discharged on Father's Day with a PIC line and abx for a short period. That had resolved until a few days ago when he started to suspect return of his UTI. He has been on Keflex for about a day. Onset: The symptoms/episode began/occurred at an unknown time. Severity of symptoms: At their worst the symptoms were very mild in the emergency department the symptoms are unchanged. The patient has experienced similar episodes in the past, a few times. The patient has been recently seen by a physician:. Historical: - Allergies: 13:54 Bactrim; ll1 - PMHx: 13:54 had PICC-kidney infections; Hypertension; ll1 - PSHx: 13:54 Heart stents; ll1 - Immunization history:: Adult Immunizations up to date. - Social history:: Smoking status: Patient denies any tobacco usage or history of. Patient/guardian denies using alcohol, street drugs, tobacco products. ROS: 17:32 Constitutional: Negative for fever, chills, and weight loss, Eyes: Negative for injury, kdr pain, redness, and discharge, Neck: Negative for injury, pain, and swelling, Cardiovascular: Negative for chest pain, palpitations, and edema, Respiratory: Negative for shortness of breath, cough, wheezing, and pleuritic chest pain, Abdomen/GI: Negative for abdominal pain, nausea, vomiting, diarrhea, and constipation, Back: Negative for injury and pain, : Negative for injury, bleeding, discharge, and swelling, MS/Extremity: Negative for injury and deformity, Skin: Negative for injury, rash, and discoloration, Neuro: Negative for headache, weakness, numbness, tingling, and seizure activity. Psych: Negative for depression, anxiety, suicide ideation, homicidal ideation, and hallucinations, Allergy/Immunology: Negative for hives, rash, and allergies, Endocrine: Negative for neck swelling, polydipsia, polyuria, polyphagia, and marked weight changes, Hematologic/Lymphatic: Negative for swollen nodes, abnormal bleeding, and unusual bruising. Exam: 17:32 Constitutional: This is a well developed, well nourished patient who is awake, alert, kdr and in no acute distress. Head/Face: Normocephalic, atraumatic. Eyes: Pupils equal round and reactive to light, extra-ocular motions intact. Lids and lashes normal. Conjunctiva and sclera are non-icteric and not injected. Cornea within normal limits. Periorbital areas with no swelling, redness, or edema. Neck: Trachea midline, no thyromegaly or masses palpated, and no cervical lymphadenopathy. Supple, full range of motion without nuchal rigidity, or vertebral point tenderness. No Meningismus. Chest/axilla: Normal chest wall appearance and motion. Nontender with no deformity. No lesions are appreciated. Cardiovascular: Regular rate and rhythm with a normal S1 and S2. No gallops, murmurs, or rubs. Normal PMI, no JVD. No pulse deficits. Respiratory: Lungs have equal breath sounds bilaterally, clear to auscultation and percussion. No rales, rhonchi or wheezes noted. No increased work of breathing, no retractions or nasal flaring. Abdomen/GI: Soft, non-tender, with normal bowel sounds. No distension or tympany. No guarding or rebound. No evidence of tenderness throughout. Back: No spinal tenderness. No costovertebral tenderness. Full range of motion. Skin: Warm, dry with normal turgor. Normal color with no rashes, no lesions, and no evidence of cellulitis. MS/ Extremity: Pulses equal, no cyanosis. Neurovascular intact. Full, normal range of motion. Neuro: Awake and alert, GCS 15, oriented to person, place, time, and situation. Cranial nerves II-XII grossly intact. Motor strength 5/5 in all extremities. Sensory grossly intact. Cerebellar exam normal. Normal gait. Psych: Awake, alert, with orientation to person, place and time. Behavior, mood, and affect are within normal limits. Vital Signs: 13:54 BP 114 / 62; Pulse 71; Resp 17; Temp 99.0; Pulse Ox 100% ; Pain 0/10; ll1 14:15 BP 116 / 62; Pulse 71; Resp 17; Pulse Ox 100% ; ah 15:15 BP 122 / 61; Pulse 65; Resp 17; Pulse Ox 100% ; ah 17:47 BP 123 / 64; Pulse 67; Resp 17; Pulse Ox 99% ; ah MDM: 16:23 Patient medically screened. kdr 17:32 Data reviewed: vital signs, nurses notes, lab test result(s), radiologic studies. kdr Counseling: I had a detailed discussion with the patient and/or guardian regarding: the historical points, exam findings, and any diagnostic results supporting the discharge/admit diagnosis, lab results, radiology results, the need for further work-up and treatment in the hospital. 06/01 14:59 Order name: Basic Metabolic Panel; Complete Time: 15:54 [facility] 06/01 14:59 Order name: CBC with Diff [facility] 06/01 14:59 Order name: Hepatic Function; Complete Time: 15:54 [facility] 06/01 14:59 Order name: Lipase; Complete Time: 15:54 [facility] 06/01 14:59 Order name: Urine Culture [facility] 06/01 16:00 Order name: Urine Dipstick--Ancillary (enter results) 06/01 17:31 Order name: Lipase [facility] 06/01 17:31 Order name: T4 Free [facility] 06/01 17:31 Order name: Basic Metabolic Panel [facility] 06/01 17:31 Order name: Basic Metabolic Panel [facility] 06/01 17:31 Order name: Basic Metabolic Panel [facility] 06/01 17:31 Order name: Magnesium [facility] 06/01 17:31 Order name: Magnesium [facility] 06/01 17:32 Order name: Thyroid Stimulating Hormone [facility] 06/01 14:59 Order name: IV Saline Lock; Complete Time: 15:51 [facility] 06/01 14:59 Order name: Labs collected and sent; Complete Time: 15:51 [facility] 06/01 14:59 Order name: Urine Dipstick-Ancillary (obtain specimen); Complete Time: 15:58 [facility] 06/01 17:27 Order name: CONS Physician Consult [facility] 06/01 17:32 Order name: Heart Healthy [facility] 06/01 17:47 Order name: CBC Smear Scan EDAL Administered Medications: No medications were administered Disposition: 06/01/20 16:23 Hospitalization ordered by Stan Antonio for Inpatient Admission. Preliminary diagnosis is Acute Renal Failure. - Bed requested for Telemetry/MedSurg (Inpatient). - Status is Inpatient Admission. - Condition is Fair. - Problem is new. - Symptoms are unchanged. Signatures: Dispatcher [employer] EDMS Radha Diez RN RN dw Rittger, Kevin, MD MD [facility] Xin Quispe RN RN Herbie Olivera RN RN ll1 Corrections: (The following items were deleted from the chart) 17:37 16:23 Hospitalization Ordered by Stan Antonio MD for Inpatient Admission. Preliminary dw diagnosis is Acute Renal Failure. Bed requested for Telemetry/MedSurg (Inpatient). Status is Inpatient Admission. Condition is Fair. Problem is new. Symptoms are unchanged. kdr 18:22 17:37 06/01/2020 16:23 Hospitalization Ordered by Stan Antonio MD for Inpatient Admission. Preliminary diagnosis is Acute Renal Failure. Bed requested for Telemetry/MedSurg (Inpatient). Status is Inpatient Admission. Condition is Fair. Problem is new. Symptoms are unchanged. dw
--- NOTE | 2020-06-01 16:24 | ER ---
Nurse's Notes [facility] Name: Benito Rader Age: 65 yrs Sex: Male : 1955 Arrival Date: 06/01/2020 Time: 13:46 Bed 18 Private MD: Diagnosis: Acute Renal Failure Presentation: 06/01 13:54 Coronavirus screen: Patient denies a cough. Patient denies shortness of breath or 1 difficulty breathing. Patient denies measured and/or subjective temperature greater than 100.4F prior to today's visit. Patient denies travel on a cruise ship or to a country the [facility] currently lists as an affected area. Patient denies contact with known and/or suspected case of COVID-19. Proceed with normal triage. Ebola Screen: Patient denies travel to an Ebola-affected area in the 21 days before illness onset. Onset of symptoms was June 01, 2020. 13:54 Acuity: SAVANAH 3 1 13:57 Chief complaint: Patient states: Had routine blood work, was called and told to come to [facility] ER for elevated Potassium and kidney function tests. Denies pain. No fevers. Waiting for a stem cell transplant. Initial Sepsis Screen: Does the patient meet any 2 criteria? No. Patient's initial sepsis screen is negative. Risk Assessment: Do you want to hurt yourself or someone else? Patient reports no desire to harm self or others. 13:57 Method Of Arrival: Ambulatory [facility] 14:37 Initial Sepsis Screen: Does the patient have a suspected source of infection? No. Patient's initial sepsis screen is negative. Historical: - Allergies: 13:54 Bactrim; ll1 - PMHx: 13:54 had PICC-kidney infections; Hypertension; ll1 - PSHx: 13:54 Heart stents; ll1 - Immunization history:: Adult Immunizations up to date. - Social history:: Smoking status: Patient denies any tobacco usage or history of. Patient/guardian denies using alcohol, street drugs, tobacco products. Screenin:37 Abuse screen: Denies threats or abuse. Nutritional screening: No deficits noted. Tuberculosis screening: No symptoms or risk factors identified. Fall Risk None identified. Assessment: 14:30 General: Appears in no apparent distress. Behavior is calm, cooperative, appropriate for age. Pain: Denies pain. Neuro: Level of Consciousness is awake, alert, obeys commands, Oriented to person, place, time, situation, Appropriate for age. Cardiovascular: Capillary refill < 3 seconds Patient's skin is warm and dry. Respiratory: Airway is patent Respiratory effort is even, unlabored. GI: No signs and/or symptoms were reported involving the gastrointestinal system. Derm: Skin is intact, is healthy with good turgor. 15:30 Reassessment: Patient and/or family updated on plan of care and expected duration. Pain ah level reassessed. Patient is alert, oriented x 3, equal unlabored respirations, skin warm/dry/pink. 16:30 Reassessment: Patient and/or family updated on plan of care and expected duration. Pain ah level reassessed. Patient is alert, oriented x 3, equal unlabored respirations, skin warm/dry/pink. awaiting on a room assignment. No needs voiced at this time. Vital Signs: 13:54 BP 114 / 62; Pulse 71; Resp 17; Temp 99.0; Pulse Ox 100% ; Pain 0/10; ll1 14:15 BP 116 / 62; Pulse 71; Resp 17; Pulse Ox 100% ; ah 15:15 BP 122 / 61; Pulse 65; Resp 17; Pulse Ox 100% ; ah 17:47 BP 123 / 64; Pulse 67; Resp 17; Pulse Ox 99% ; ah ED Course: 13:46 Patient arrived in ED. mr 13:50 Edward Resendiz MD is Attending Physician. kdr 13:55 Triage completed. ll1 13:57 Arm band placed on Patient placed in an exam room, on a stretcher. ll1 13:58 Xin Quispe, RN is Primary Nurse. ah 14:37 Patient has correct armband on for positive identification. Bed in low position. Call light in reach. Pulse ox on. NIBP on. 15:00 Inserted saline lock: 20 gauge in left antecubital area, using aseptic technique. 16:21 Stan Antonio MD is Hospitalizing Provider. kdr 18:10 No provider procedures requiring assistance completed. ah 18:14 Patient admitted, IV remains in place. Administered Medications: No medications were administered Outcome: 16:23 Decision to Hospitalize by Provider. kdr 18:01 Admitted to Med/surg accompanied by tech, via wheelchair, room 230, with chart, Report called to KRISTA Finnegan 18:01 Condition: good 18:01 Instructed on the need for admit, Demonstrated understanding of 18:22 Patient left the ED. Signatures: Edward Resendiz MD MD [facility] Aria Trinh Amy, RN RN Herbie Olivera RN RN [facility] Corrections: (The following items were deleted from the chart) 13:59 13:57 Chief complaint: Patient states: Had routine blood work, was called and told to [facility] come to ER for elevated Potassium and kidney function tests. Waiting for a stem cell transplant [facility] 15: 14:30 Neuro: Reports headache frontal area, photophobia since 4 days [facility] 15:24 14:30 Neuro: Level of Consciousness is awake, alert, obeys commands, Oriented to person, place, time, situation, Appropriate for age
[2020-06-01] MEDS ORDERED: ONDANSETRON 4 MG/2 ML VIAL IV PRN (17:27)
--- NOTE | 2020-06-01 17:42 | P.HP ---
Certification for Inpatient With expected LOS: >2 Midnights Patient will require the following post-hospital care: None Practitioner: I am a practitioner with admitting privileges, knowledge of patient current condition, hospital course, and medical plan of care. Services: Services provided to patient in accordance with Admission requirements found in Title 42 Section 412.3 of the Code of Federal Regulations Patient History Date of Service: 06/01/20 Primary Care Provider: Josiah FIGUEROA Reason for admission: Acute kidney injury/ Hx of myelofibrosis History of Present Illness: 65-year-old male with past medical history of hypertension, CAD with stents x2 currently on Brilinta, chronic anemia, and recent diagnosis of myelofibrosis followed up by - client service supervisor who presents to the emergency room after being called by the client service supervisor office stating that he had abnormal blood work. Patient states he has been seen doctors at [facility]. He is awaiting a bone marrow transplant. States that he was diagnosed with myelofibrosis earlier this year. In the emergency room patient's blood work shows an elevated lipase but patient denies left upper quadrant pain at this time. Also shows elevated creatinine levels of 9.14. Lab work from November of 2019 shows abnormal kidney function of 1.2. Also patient's BUN is 81. Patient takes blood pressure medications and was recently on an antibiotic given to him by the doctors at [facility]. I believe the medication was Bactrim and patient did not do well with the medication. On physical exam patient is in no distress. He is pleasant and cooperative. He does not recall what medications he is on that family members are bringing his medication list today. Patient states that he feels fine but was told to come to the emergency room. He does not feel dehydrated either. Will be admitted for further evaluation. Will consult Nephrology as well and follow recommendations. Allergies No Known Allergies Allergy (Verified 12/07/19 08:36) Home medications list reviewed: No Home Medications: Allopurinol 1 tab PO DAILY 12/07/19 Aspirin [Aspir-Low] 1 tab PO DAILY 12/07/19 Atorvastatin Calcium 1 tab PO DAILY 12/07/19 Ferrous Sulfate [Iron] 1 tab PO DAILY 12/07/19 Lisinopril [Zestril] 1 tab PO DAILY 12/07/19 Loratadine/Pseudoephedrine [Claritin-D 24 Hour Tablet] 1 tab PO DAILY 12/07/19 Metoprolol Succinate 1 tab PO DAILY 12/07/19 Ticagrelor [Brilinta*] 1 tab PO BID 12/07/19 - Past Medical/Surgical History Diabetic: No -: Essential hypertension -: Chronic anemia -: Myelofibrosis -: Acute kidney injury -: CAD with stents x2 -: Bone marrow biopsy Psychosocial/ Personal History: Lives at home - Family History Family History: Reviewed- Non-Contributory - Social History Smoking Status: Former smoker Smoking therapy provided: No Patient receptive to therapy: No Alcohol use: No CD- Drugs: No Caffeine use: No Place of Residence: Home Review of Systems General: Unremarkable Eyes: Unremarkable ENT: Unremarkable Respiratory: Unremarkable Cardiovascular: Unremarkable Gastrointestinal: Unremarkable Genitourinary: Unremarkable Musculoskeletal: Unremarkable Integumentary: Unremarkable Neurological: Unremarkable Physical Examination - Vital Signs Temperature: 99 F Blood Pressure: 122/61 Pulse: 65 Respirations: 17 Pulse Ox (%): 100 (RA) - Physical Exam General: Alert, In no apparent distress, Oriented x3 HEENT: Atraumatic, Normocephalic, PERRLA Neck: Supple, Other (Trachea midline) Respiratory: Clear to auscultation bilaterally, Normal air movement Cardiovascular: No edema, Normal pulses, Regular rate/rhythm, Normal S1 S2 Capillary refill: <2 Seconds Gastrointestinal: Normal bowel sounds, Soft and benign, Non-distended Musculoskeletal: No swelling, No contractures, No erythema Integumentary: No rashes, No breakdown, No significant lesion Neurological: Normal gait, Normal speech, Normal strength at 5/5 x4 extr, Normal tone Other Physical/Emotional Findings: Lives at home - Studies Laboratory Data (last 24 hrs) 06/01/20 15:10: WBC 3.5 L D, Hgb 8.5 L, Hct 25.5 L, Plt Count 200 06/01/20 15:10: Sodium 134 L, Potassium 4.2, BUN 81 H, Creatinine 9.14 H*, Glucose 91, Total Bilirubin 0.6, AST 37, ALT 40, Alkaline Phosphatase 85, Lipase 1157 H Assessment and Plan - Plan Impression: Acute kidney injury likely complicated by blood pressure medications and dehydration: Chronic anemia with recent diagnosis of myelofibrosis: Essential hypertension: Coronary artery disease with stent placement x2, currently on Brilinta: Plan: Acute kidney injury likely complicated by blood pressure medications and dehydration: Patient shows a creatinine level of 9.1 and a BUN of 81 on this admission. Kidney function was 1.2 in November of 2019. We will start gentle IV hydration, will hold off on blood pressure medications for now. Will consult Nephrology - Dr Miller and await recommendations. Will order a renal ultrasound and a 24 hr urine sodium. Chronic anemia with recent diagnosis of myelofibrosis: Patient is seen by client service supervisor . Patient's hemoglobin level was 8.5 with a hematocrit of 25.5. No need for transfusion at this time. Patient is seen at [facility] for the recent diagnosis of myelofibrosis and states that he is awaiting a bone marrow transplant. Will monitor blood levels and if possible will discuss case with client service supervisor. Essential hypertension: Will hold off on home medications. Will order hydralazine 10 mg q.4 hr for systolic blood pressure greater than 170 and a diastolic blood pressure greater than 90. Coronary artery disease with stent placement x2, currently on Brilinta: Will resume home medication of Brilinta. Discharge Plan: Home Plan to discharge in: 72 Hours - Advance Directives Does patient have a Living Will: No Does patient have a Durable POA for Healthcare: No - Code Status/Comfort Care Code Status Assessed: Yes Time Spent Managing Pts Care (In Minutes): 55
[2020-06-01 17:46] LABS: Urine White Blood Cell Casts OK
[2020-06-01 17:47] LABS: Blood Morphology Comment NOT SEEN (NOT SEEN); Platelet Estimate ADEQ
[2020-06-01 18:11] LABS: Thyroid Stimulating Hormone 1.89 uIU/mL (0.360-3.740)
[2020-06-01] MEDS: NA CHLORIDE 0.9% 1,000 ML IV SCH (18:41)
[2020-06-01 18:57] VITALS: BMI 26.2
[2020-06-01] MEDS: INSULIN -REGULAR HUMAN 50 UNIT/0.5 ML ML SQ SCH (20:38)
[2020-06-01] MEDS: TICAGRELOR 90 MG TABLET PO SCH (20:44)
[2020-06-02] MEDS ORDERED: HEPARIN 5000 UNIT/ML 1 ML VIAL SQ SCH (01:00)
[2020-06-02] MEDS: NA CHLORIDE 0.9% 1,000 ML IV SCH ×2 (05:11→17:21)
[2020-06-02 06:08] LABS: Absolute Lymphocytes (CBC) 0.8 K/uL (0.7-4.9); Basophils % 0.8 % (0-1.3); Hematocrit 19.9 % (39.6-49.0); Lymphocytes % 27.9 % (15.3-44.8); MPV 9.7 fL (7.6-11.3); RBC Red Blood Cell Count 2.27 M/uL (4.33-5.43)
[2020-06-02 06:22] LABS: Magnesium 2.6 mg/dL (1.8-2.4); Potassium 4.3 mmol/L (3.5-5.1)
[2020-06-02] MEDS: INSULIN -REGULAR HUMAN 50 UNIT/0.5 ML ML SQ SCH ×4 (07:30→20:39)
[2020-06-02] MEDS: METOPROLOL XL 25 MG TAB PO SCH (09:00)
[2020-06-02] MEDS: FERROUS SULFATE 325 MG TAB PO SCH (09:00)
[2020-06-02 09:02] LABS: CKMB Creatine Kinase MB < 1.0 ng/mL (0.3-3.6); Uric Acid 14.1 mg/dL (3.5-7.2)
--- NOTE | 2020-06-02 09:16 | P.PN ---
Subjective Date of Service: 06/02/20 Primary Care Provider: Josiah FIGUEROA Chief Complaint: Acute kidney injury/ Hx of myelofibrosis Subjective: Improving, Doing well <Estiven Khanna - Last Filed: 06/02/20 09:29> Date of Service: 06/02/20 <Tom Antonio - Last Filed: 06/02/20 12:08> Review of Systems General: Unremarkable Eyes: Unremarkable ENT: Unremarkable Respiratory: Unremarkable Cardiovascular: Unremarkable Gastrointestinal: Unremarkable Genitourinary: Unremarkable Musculoskeletal: Unremarkable Integumentary: Unremarkable Neurological: Unremarkable <Estiven Khanna - Last Filed: 06/02/20 09:29> Physical Examination - Vital Signs Temperature: 97.7 F Blood Pressure: 105/63 Pulse: 64 Respirations: 18 Pulse Ox (%): 96 - Physical Exam General: Alert, In no apparent distress, Oriented x3 HEENT: Atraumatic, Normocephalic, PERRLA Neck: Supple, 2+ carotid pulse no bruit Respiratory: Clear to auscultation bilaterally, Normal air movement Cardiovascular: No edema, Normal pulses, Regular rate/rhythm Capillary refill: <2 Seconds Gastrointestinal: Normal bowel sounds, Soft and benign, Non-distended Musculoskeletal: No clubbing, No swelling, No contractures Integumentary: No rashes, No breakdown Neurological: Normal gait, Normal speech, Normal strength at 5/5 x4 extr Other Physical/Emotional Findings: Lives at home - Studies Laboratory Data (last 24 hrs) 06/01/20 15:10: Lipase 1194 H 06/01/20 15:10: WBC 3.5 L D, Hgb 8.5 L, Hct 25.5 L, Plt Count 200 06/01/20 15:10: Sodium 134 L, Potassium 4.2, BUN 81 H, Creatinine 9.14 H*, Glucose 91, Total Bilirubin 0.6, AST 37, ALT 40, Alkaline Phosphatase 85, Lipase 1157 H <Estiven Khanna - Last Filed: 06/02/20 09:29> - Studies Laboratory Data (last 24 hrs) 06/01/20 15:10: Lipase 1194 H 06/01/20 15:10: WBC 3.5 L D, Hgb 8.5 L, Hct 25.5 L, Plt Count 200 06/01/20 15:10: Sodium 134 L, Potassium 4.2, BUN 81 H, Creatinine 9.14 H*, Glucose 91, Total Bilirubin 0.6, AST 37, ALT 40, Alkaline Phosphatase 85, Lipase 1157 H <Tom Antonio - Last Filed: 06/02/20 12:08> Assessment And Plan - Plan Impression: Acute kidney injury likely complicated by blood pressure medications and dehydration: Chronic anemia with recent diagnosis of myelofibrosis: Essential hypertension: Coronary artery disease with stent placement x2, currently on Brilinta: Plan: Acute kidney injury likely complicated by blood pressure medications and dehydration: Patient had a creatinine level of 9.1 on admission. Creatinine level of 8.5 today. Slowly improving. BUN of 81 on this admission, now 89 Kidney function was 1.2 in November of 2019. Continue gentle IV hydration, will hold off on blood pressure medications for now. Blood pressures remained stable with this morning's reading of 105/63. Will consult Nephrology - Dr Miller and await recommendations. Renal ultrasound with results pending and 24 hr urine sodium being collected. Chronic anemia with recent diagnosis of myelofibrosis: Patient is seen by beader . Patient's hemoglobin level was 8.5 on admission and dropped to 7.1 with a hematocrit of 19.9 this morning. Will continue to monitor H&H. Patient is seen at [facility] for the recent diagnosis of myelofibrosis and states that he is awaiting a bone marrow transplant. He states that he usually gets a blood transfusion every couple of weeks so he may require a blood transfusion prior to discharge. Will monitor blood levels and if possible will discuss case with beader. Essential hypertension: Will hold off on home medications. Will order hydralazine 10 mg q.4 hr for systolic blood pressure greater than 170 and a diastolic blood pressure greater than 90 if necessary. Blood pressure has remained stable so far with no medication Coronary artery disease with stent placement x2, currently on Brilinta: Continue Brilinta. Telemetry with no abnormal rhythms. Discharge Plan: Home Plan to discharge in: 72 Hours - Code Status/Comfort Care Code Status Assessed: Yes Time Spent Managing PTS Care (In Minutes): 45 <Estiven Khanna - Last Filed: 06/02/20 09:29> Physician Review Additional Text: Patient was seen examined and findings were discussed Agree with the assessment and plan as documented by the BRITNI <Tom Antonio - Last Filed: 06/02/20 12:08>
--- NOTE | 2020-06-02 11:54 | RAD REPORT ---
EXAM DESCRIPTION: Di Single View06/02/2020 11:30 am CLINICAL HISTORY: Chest pain COMPARISON: none FINDINGS: The lungs appear clear of acute infiltrate. The heart is normal size IMPRESSION: No acute abnormalities displayed
[2020-06-02] MEDS ORDERED: NA CHLORIDE 0.9% 1,000 ML IV ONE (12:19)
--- NOTE | 2020-06-02 14:06 | CON ---
Date of Consultation: 06/02/2020 Consulting Physician: Dr. Antonio/TORRES Jean-Baptiste. Reason For Consultation: Elevated BUN, creatinine. History Of Present Illness: This is a 65-year-old gentleman with significant past medical history of coronary artery disease status post PTCA, on Brilinta, hypertension, hyperlipidemia, MDS, on chemoth erapy plan for bone marrow transplant, the patient came to the hospital as being called by his hemato logist for abnormal lab. Upon arrival to the hospital, found to have elevation in BUN and creatinine ; creatinine above 9 with GFR around 6. For that reason, we have been consulted. The patient alfonzo michelle was admitted earlier back in April to [facility] with acute kidney injury and renal failure vito jeovanny conservatively. According to him, there is no mention for any dialysis or any incident. For gavino t reason, he was discharged, but he did not have any followup with lace machine operator, the patient being on acyclovir, Bactrim, and SIRENA inhibitor, off lisinopril. The patient denied taking any nonsteroidal. No rashes in his body. No recent exposure for antibioti cs. Over the night, the patient was started on IV hydration with kidney function slight improvement. The patient denied any nausea, any vomiting. Past Medical History: Includes: 1.Hypertension. 2.Hyperlipidemia. 3.MDS. 4.Chronic kidney disease, baseline creatinine back in April 2020 1.5 with GFR of 56. Past Surgical History: Include bone marrow biopsy. Home Medications: Include: 1.Allopurinol. 2.Aspirin. 3.Atorvastatin. 4.Ferrous sulfate. 5.Bactrim. 6.Lisinopril. 7.Loratadine. 8.Metoprolol. 9.Brilinta. 10.Jakafi (ruxolitinib). Family History: Positive for hypertension. Social History: Ex-smoker. Denied alcohol. Denied drug abuse. Review of Systems: Head and Neck: No red eye. No ear pain. GI: No nausea, no vomiting. : No polyuria, no dysuria, no hematuria. LUMBER MATERIAL HANDLER: Not applicable. RESPIRATORY: No shortness of breath. CARDIOVASCULAR: No chest pain. ENDOCRINE: No polydipsia. SKIN: No rash. NEURO: No neuropathy. No pain. MUSCULOSKELETAL: Generalized fatigue. Physical Examination: Vital Signs: When I saw the patient, the patient was sitting in chair, comfortable. Blood pressure 105/63, pulse of 63, afebrile. Reviewing the record, the patient did not have any low blood pressure. The lowest is 105. Chest: Clear to auscultation. Heart: S1, S2. Systolic murmur. Abdomen: Organomegaly, splenomegaly. Extremities: No edema. Neurologic: Alert, no focal. No tremor. Laboratory Data: WBC 2.9, H and H 7.1/19.9, platelets 163. Sodium 136, potassium 4.3, bicarb 18, BU N 89, creatinine 8.5, GFR of 6, calcium 8.1, magnesium 2.6. TSH 1.8. Urinalysis; +2 blood, +2 prote in. Current Medications: In the hospital include; 1.Aspirin. 2.Ferrous sulfate. 3.Brilinta. 4.Atorvastatin. 5.Metoprolol. 6.Zofran. Assessment And Plan: Acute kidney injury, multifactorial secondary to the toxic acute tubular necros is, poor perfusion, questionable toxicity secondary to acyclovir/Bactrim superimposed with SIRENA inhibi tor, questionable toxicity to chemotherapy Jakafi. 1.I am going to hold all above medications. Discussed with Hematology regarding the about discontin uation of Jakafi and they agreed. Discontinue acyclovir, SIRENA inhibitor, and Bactrim. We will start the patient on aggressive hydration. We will give the patient of normal saline bolus and we will con tinue on IV hydration. 2.I can go ahead with the presence of thrombocytopenia. I am going to go ahead and send for haptogl obin to rule out any hemolytic-uremic syndrome. As per neoplastic, we will go ahead and send for pro tein, creatinine, send for urine eosinophil, repeat serum electrophoresis as the patient had one [facility] k[facility] back in November 2019 within normal limit and we will follow up. 3.Hypertension with the presence of acute kidney injury. Hold losartan. 4.Myelodysplastic syndrome, anemia, by Hematology. We will repeat serum protein electrophoresis, ho ld acyclovir and Bactrim and the chemotherapy for the time being. 5.Coronary artery disease, stable. 6.I had a long discussion with the patient that if kidney function continue to decline or not recove r, the patient may need temporary renal replacement therapy. 7.Acidosis secondary to renal failure. I do not see the need for bicarb IV. I am going to start th e patient on oral bicarb and we will follow up the patient. Thank you Dr. Antonio and Mr. Jean-Baptiste for allowing us to participate in the care of your patient. BARBARA Voice ID: [id number] Report ID: [id number]
--- NOTE | 2020-06-02 18:44 | RAD REPORT ---
EXAM DESCRIPTION: US - Renal Ultrasound-Complete - 06/02/2020 6:34 pm CLINICAL HISTORY: abdominal pain/elevated creatinine COMPARISON: None. FINDINGS: The right kidney measures 10 cm with an increased echotexture. 4.4 centimeters cyst The left kidney measures 13 cm with an increased echotexture. 3 centimeters cyst Hydronephrosis is not seen. No gross abnormality of bladder is seen Spleen measures 20 centimeters IMPRESSION: Mildly increased renal echotexture consistent with parenchymal disease Bilateral renal cysts Splenomegaly
[2020-06-02] MEDS: SODIUM BICARB 325 MG TAB PO SCH (20:38)
[2020-06-02] MEDS: ATORVASTATIN 40 MG TAB PO SCH (20:38)
[2020-06-03] MEDS: NA CHLORIDE 0.9% 1,000 ML IV SCH ×4 (03:36→15:34)
[2020-06-03 04:44] LABS: Urine Appearance CLEAR; Urine Bilirubin NEGATIVE (NEG); Urine Blood NEGATIVE (NEG); Urine Color YELLOW; Urine Glucose NEGATIVE (NEG); Urine Protein NEGATIVE (NEG)
[2020-06-03 05:57] LABS: Absolute Lymphocytes (CBC) 0.4 K/uL (0.7-4.9); Basophils % 0.9 % (0-1.3); Lymphocytes % 20.8 % (15.3-44.8); MPV 9.4 fL (7.6-11.3); RBC Red Blood Cell Count 2.12 M/uL (4.33-5.43)
[2020-06-03 06:04] LABS: Hematocrit 18.5 % (39.6-49.0)
[2020-06-03 06:05] LABS: Urine Microscopic Reflex NO UMIC
[2020-06-03 06:38] LABS: Potassium 4.4 mmol/L (3.5-5.1)
[2020-06-03] MEDS: INSULIN -REGULAR HUMAN 50 UNIT/0.5 ML ML SQ SCH ×4 (07:30→20:32)
[2020-06-03 07:31] LABS: Blood Morphology Comment NOTED (NOT SEEN); Platelet Estimate ADEQ; Platelets, Giant NOTED; Polychromasia 1+; Rouleau NOTED
[2020-06-03] MEDS: METOPROLOL XL 25 MG TAB PO SCH (09:00)
[2020-06-03] MEDS: SODIUM BICARB 325 MG TAB PO SCH ×3 (09:00→20:14)
[2020-06-03] MEDS: FERROUS SULFATE 325 MG TAB PO SCH ×2 (09:00)
--- NOTE | 2020-06-03 10:54 | P.PN ---
Subjective Date of Service: 06/03/20 Primary Care Provider: Josiah FIGUEROA Chief Complaint: Acute kidney injury/ Hx of myelofibrosis Subjective: Improving, Doing well Review of Systems General: As per HPI Eyes: Unremarkable ENT: Unremarkable Respiratory: Unremarkable Cardiovascular: Unremarkable Gastrointestinal: Unremarkable Genitourinary: Unremarkable Musculoskeletal: Unremarkable Integumentary: Unremarkable Neurological: Unremarkable Physical Examination - Vital Signs Temperature: 97.8 F Blood Pressure: 123/70 Pulse: 80 Respirations: 15 Pulse Ox (%): 100 - Physical Exam General: Alert, In no apparent distress, Oriented x3 HEENT: Atraumatic, Normocephalic, PERRLA, Mucous membr. moist/pink Neck: Supple, No Thyromegaly Respiratory: Clear to auscultation bilaterally, Normal air movement Cardiovascular: No edema, Normal pulses, Regular rate/rhythm, Normal S1 S2 Capillary refill: <2 Seconds Gastrointestinal: Normal bowel sounds, Soft and benign, Non-distended Musculoskeletal: No clubbing, No swelling, No contractures, No erythema Integumentary: No rashes, No breakdown, No tenderness/swelling Neurological: Normal gait, Normal speech, Normal strength at 5/5 x4 extr, Normal tone Other Physical/Emotional Findings: Lives at home Assessment And Plan - Plan Impression: Acute kidney injury likely complicated by blood pressure medications and dehydration: Chronic anemia with recent diagnosis of myelofibrosis: Essential hypertension: Coronary artery disease with stent placement x2, currently on Brilinta: Plan: Acute kidney injury likely complicated by blood pressure medications and dehydration: Patient had a creatinine level of 9.1 on admission. Creatinine level of 8.5 yesterday and 5.5 today. Slowly improving. On admission BUN of 81. Yesterday 89 and today 79. Kidney function was 1.2 in November of 2019. Con tinue gentle IV hydration, will hold off on blood pressure medications for now. Blood pressures remained stable with this yesterday's reading of 105/63 and this morning 123/70. Nephrology following- Dr Miller. Renal ultrasound with mildly increased renal echotexture consistent with parenchymal disease, Bilateral renal cysts, Splenomegaly. Chronic anemia with recent diagnosis of myelofibrosis: Patient is seen by dental appliance repairer . Patient's hemoglobin level was 8.5 on admission and dropped to 7.1 yesterday and is 6.2 today. Hematocrit of 19.9 yesterday. Today 18.5. Patient will be transfused 2 units of irradiated PRBCs per dental appliance repairer request. Will continue to monitor H&H. Patient is seen at [facility] for the recent diagnosis of myelofibrosis and states that he is awaiting a bone marrow transplant. He states that he usually gets a blood transfusion every couple of weeks. Continue darshan monitor blood levels. Essential hypertension: Will hold off on home medications. Will order hydralazine 10 mg q.4 hr for systolic blood pressure greater than 170 and a diastolic blood pressure greater than 90 if necessary. Blood pressure has remained stable so far with no medication Coronary artery disease with stent placement x2, currently on Brilinta: Continue Brilinta. Telemetry with no abnormal rhythms. Discharge Plan: Home Plan to discharge in: 72 Hours - Code Status/Comfort Care Code Status Assessed: Yes Physician Review Additional Text: Patient was seen examined and findings were discussed Agree with the assessment and plan as documented by the BRITNI Time Spent Managing PTS Care (In Minutes): 45
[2020-06-03] MEDS ORDERED: NA CHLORIDE 0.9% 250 ML ONE (13:09)
--- NOTE | 2020-06-03 17:33 | PN ---
Date of Progress Note: 06/03/2020 Subjective: Patient was admitted with acute kidney injury, multifactorial, secondary to possible SIRENA inhibitor, Bactrim, and acyclovir. The patient started having acidosis. After aggressive hydration and transfusion, the patient's kidney function started trending down. The patient is nonoliguric. Acidosis has been resolved. No uremic symptoms. Physical Examination: Vital Signs: Blood pressure 145/66, pulse of 72, afebrile. The patient had good urine output of 160 0. Chest: Clear to auscultation. Heart: S1, S2. Regular. Abdomen: Soft. Splenomegaly. Extremities: No edema. Neuro: Alert and oriented x3. No tremor. Laboratory Data: WBC 2.1, H and H 6.2/18.5, platelets 157. Sodium 141, potassium 4.4, bicarb 18, ch loride 115, BUN trending down to 75, creatinine down to 5.5, GFR of 10, calcium of 8. Serum protein electrophoresis is still pending. Vitamin D still pending. Urinalysis negative for infection. P/C ratio is still pending. Serology still pending. Current Medications: The patient is on include: 1.Aspirin. 2.Ferrous sulfate. 3.Sodium bicarb 650 b.i.d. 4.Metoprolol 25 daily. 5.Zofran. 6.Normal saline 100 per hour. Assessment And Plan: 1.Acute kidney injury, multifactorial, secondary to prerenal, acyclovir, SIRENA inhibitor, and Bactrim. In the recovery phase, nonoliguric. No hyperkalemia. Marginal acidosis. No uremic symptoms. I d o not see the need to initiate any renal replacement therapy for the time being. I am going to haider hernandez to monitor the patient. Continue hydration. We will decrease intravenous fluid to 50 per hour. Plan to discontinue tomorrow. 2.Acidosis, non-anion gap, secondary to renal failure. I am going to go ahead and increase sodium b icarb to 3 times a day. 3.Hypertension, controlled, optimal, with the presence of acute kidney injury. Keep holding SIRENA inh ibitor. 4.Myelodysplastic syndrome. The patient to initiate back on his chemo therapy. We will follow up w [facility] Hematology. Okay from the Renal standpoint. BARBARA Voice ID: [id number] Report ID: [id number]
[2020-06-03] MEDS: TICAGRELOR 90 MG TABLET PO SCH (20:02)
[2020-06-03] MEDS: ATORVASTATIN 40 MG TAB PO SCH (20:14)
[2020-06-03 23:07] LABS: Urine Protein/Creatinine Ratio 0.34 ratio (<0.15)
[2020-06-03 23:19] LABS: Hematocrit 23.4 % (39.6-49.0)
[2020-06-04] MEDS: INSULIN -REGULAR HUMAN 50 UNIT/0.5 ML ML SQ SCH ×4 (07:30→20:54)
[2020-06-04 08:05] LABS: Absolute Lymphocytes (CBC) 0.8 K/uL (0.7-4.9); Basophils % 0.8 % (0-1.3); Hematocrit 24.9 % (39.6-49.0); Lymphocytes % 26.2 % (15.3-44.8); MPV 9.1 fL (7.6-11.3); RBC Red Blood Cell Count 2.82 M/uL (4.33-5.43)
[2020-06-04 08:21] LABS: Potassium 4.9 mmol/L (3.5-5.1)
[2020-06-04] MEDS: METOPROLOL XL 25 MG TAB PO SCH (08:25)
[2020-06-04] MEDS: SODIUM BICARB 325 MG TAB PO SCH ×3 (08:26→20:53)
[2020-06-04] MEDS: FERROUS SULFATE 325 MG TAB PO SCH (08:26)
[2020-06-04] MEDS: TICAGRELOR 90 MG TABLET PO SCH ×2 (08:26→20:53)
[2020-06-04] MEDS: ASPIRIN EC 81 MG TAB PO SCH (08:26)
[2020-06-04] MEDS: RUXOLITINIB PHOSPHATE PO SCH (08:27)
[2020-06-04 09:48] LABS: Anisocytosis 2+; Blood Morphology Comment NOTED (NOT SEEN); Platelet Estimate ADEQ; Poikilocytosis 1+
[2020-06-04] MEDS: NA CHLORIDE 0.9% 1,000 ML IV SCH (10:00)
[2020-06-04 10:24] LABS: Rheumatoid Factor NEG (NEG)
--- NOTE | 2020-06-04 10:43 | P.PN ---
Subjective Date of Service: 06/04/20 Primary Care Provider: Josiah FIGUEROA Chief Complaint: Acute kidney injury/ Hx of myelofibrosis Subjective: Tolerating diet, Improving, Doing well <Estiven Khanna - Last Filed: 06/04/20 10:38> Date of Service: 06/04/20 <Tom Antonio - Last Filed: 06/04/20 16:41> Review of Systems General: Unremarkable Eyes: Unremarkable ENT: Unremarkable Respiratory: Unremarkable Cardiovascular: Unremarkable Gastrointestinal: Unremarkable Genitourinary: Unremarkable Musculoskeletal: Unremarkable Integumentary: Unremarkable Neurological: Unremarkable <Estiven Khanna - Last Filed: 06/04/20 10:38> Physical Examination - Vital Signs Temperature: 97.8 F Blood Pressure: 144/66 Pulse: 66 Respirations: 17 Pulse Ox (%): 99 - Physical Exam General: Alert, In no apparent distress, Oriented x3, Cooperative HEENT: Atraumatic, Normocephalic, PERRLA Neck: Supple, No Thyromegaly Respiratory: Clear to auscultation bilaterally, Normal air movement Cardiovascular: No edema, Normal pulses, Regular rate/rhythm, Normal S1 S2 Capillary refill: <2 Seconds Gastrointestinal: Normal bowel sounds, Soft and benign, Non-distended Musculoskeletal: No clubbing, No swelling, No contractures, No erythema, No tenderness Integumentary: No rashes, No breakdown, No significant lesion, No tendern ess/swelling, No erythema Neurological: Normal gait, Normal speech, Normal strength at 5/5 x4 extr, Normal tone Other Physical/Emotional Findings: Lives at home - Studies Microbiology Data (last 24 hrs): 06/01/20 15:51 Clean Catch Urine Douglas Count - Final 06/01/20 15:51 Clean Catch Urine - Final No growth. <Estiven Khanna - Last Filed: 06/04/20 10:38> - Studies Microbiology Data (last 24 hrs): 06/01/20 15:51 Clean Catch Urine Douglas Count - Final 06/01/20 15:51 Clean Catch Urine - Final No growth. <Tom Antonoi - Last Filed: 06/04/20 16:41> Assessment And Plan - Plan Impression: Acute kidney injury likely complicated by blood pressure medications and dehydration: Chronic anemia with recent diagnosis of myelofibrosis: Essential hypertension: Coronary artery disease with stent placement x2, currently on Brilinta: Plan: Acute kidney injury likely complicated by blood pressure medications and dehydration: Patient had a creatinine level of 9.1 on admission. Creatinine continues trending down. Creatinine of 2.7 today. Slowly improving. On admission BUN of 81. Now 52. Improving. Kidney function was 1.2 in November of 2019. Continue gentle IV hydration, will hold off on blood pressure medications for now. Blood pressure of 144/66 today. Nephrology following- Dr Miller. Renal ultrasound with mildly increased renal echotexture consistent with parenchymal disease, Bilateral renal cysts, Splenomegaly. Renal function continues improving. Will continue IV fluids and once renal function at baseline patient may be discharged. Likely in the next 24 hr. Will discuss with Nephrology. Patient okay to start cancer medications. Chronic anemia with recent diagnosis of myelofibrosis: Patient is seen by health information assistant . Patient tolerated transfusion of 2 units of irradiated PRBCs yesterday. Patient's hemoglobin improved to 8.3 with a hematocrit of 24.9 Will continue to monitor H&H. Patient is seen at [facility] for the recent diagnosis of myelofibrosis and states that he is awaiting a bone marrow transplant. He states that he usually gets a blood transfusion every couple of weeks. Essential hypertension: Will hold off on home medications for now. Continue hydralazine 10 mg q.4 hr for systolic blood pressure greater than 170 and a diastolic blood pressure greater than 90 if necessary. Monitor her blood pressure. Coronary artery disease with stent placement x2, currently on Brilinta: Continue Brilinta. Telemetry with no abnormal rhythms. Discharge Plan: Home Plan to discharge in: 24 Hours - Code Status/Comfort Care Code Status Assessed: Yes Physician Review Additional Text: Patient was seen examined and findings were discussed Agree with the assessment and plan as documented by the BRITNI Time Spent Managing PTS Care (In Minutes): 45 <Estiven Khanna - Last Filed: 06/04/20 10:38>
[2020-06-04] MEDS: ATORVASTATIN 40 MG TAB PO SCH (20:53)
--- NOTE | 2020-06-05 00:50 | PN ---
Date of Progress Note: 06/04/2020 Chief Complaint: Acute on chronic kidney injury. History Of Present Illness: The patient was found to have moderately severe acute kidney injury with high BUN-creatinine ratio. There is some improvement over the last few days. Renal function has be en gradually improving. Review of Systems: Denies fever or chills. Physical Examination: Lungs: Diminished breath sounds at bases. Heart: S1, S2. Abdomen: Soft, benign. Extremities: Slight edema present. Laboratory Data: BUN 52, creatinine 2.77, sodium 144, potassium 4.9, chloride 119, CO2 17, glucose 9 3. Impression And Plan: 1.Acute on chronic kidney injury. Renal function has improved over last 24 hours. Monitor BUN and creatinine. There is mild metabolic acidosis. Continue sodium bicarbonate tablet. 2.Acidosis, non-anion gap, secondary to renal failure. Continue sodium bicarbonate tablet. 3.Hypertension, controlled. SIRENA inhibitor is on hold to prevent renal hypoperfusion and worsening o f the renal function. 4.There is no hyperkalemia. Monitor CK level to rule out rhabdomyolysis. EB/MODL Voice ID: [id number] Report ID: [id number]
[2020-06-05] MEDS: NA CHLORIDE 0.9% 1,000 ML IV SCH ×2 (05:04→13:40)
[2020-06-05] MEDS: INSULIN -REGULAR HUMAN 50 UNIT/0.5 ML ML SQ SCH ×3 (07:30→16:30)
[2020-06-05 08:12] LABS: Absolute Lymphocytes (CBC) 0.6 K/uL (0.7-4.9); Basophils % 0.8 % (0-1.3); Hematocrit 22.9 % (39.6-49.0); Lymphocytes % 21.8 % (15.3-44.8); MPV 8.9 fL (7.6-11.3); RBC Red Blood Cell Count 2.57 M/uL (4.33-5.43)
[2020-06-05 08:26] LABS: Potassium 4.7 mmol/L (3.5-5.1)
[2020-06-05] MEDS: METOPROLOL XL 25 MG TAB PO SCH (08:47)
[2020-06-05] MEDS: TICAGRELOR 90 MG TABLET PO SCH ×2 (08:47→20:50)
[2020-06-05] MEDS: FERROUS SULFATE 325 MG TAB PO SCH (08:47)
[2020-06-05] MEDS: ASPIRIN EC 81 MG TAB PO SCH (08:47)
[2020-06-05] MEDS: SODIUM BICARB 325 MG TAB PO SCH ×3 (08:47→20:51)
[2020-06-05] MEDS: RUXOLITINIB PHOSPHATE PO SCH (08:48)
--- NOTE | 2020-06-05 10:31 | P.PN ---
Subjective Date of Service: 06/05/20 Primary Care Provider: Josiah FIGUEROA Chief Complaint: Acute kidney injury/ Hx of myelofibrosis Subjective: No new changes <Javi Garcia - Last Filed: 06/05/20 10:29> Date of Service: 06/05/20 <Tom Antonioaskar - Last Filed: 06/05/20 14:50> Review of Systems Unremarkable <JoseJavi - Last Filed: 06/05/20 10:29> Physical Examination - Vital Signs Temperature: 97.3 F Blood Pressure: 160/75 Pulse: 69 Respirations: 18 Pulse Ox (%): 99 - Physical Exam General: Alert, In no apparent distress HEENT: Atraumatic, PERRLA, EOMI Neck: Supple, JVD not distended Respiratory: Clear to auscultation bilaterally, Normal air movement Cardiovascular: Regular rate/rhythm, Normal S1 S2 Gastrointestinal: Normal bowel sounds, No tenderness Musculoskeletal: No tenderness Integumentary: No rashes Neurological: Normal speech, Normal tone, Normal affect Other Physical/Emotional Findings: Lives at home - Studies Microbiology Data (last 24 hrs): 06/01/20 15:51 Clean Catch Urine Martelle Count - Final 06/01/20 15:51 Clean Catch Urine - Final No growth. <Javi Garcia - Last Filed: 06/05/20 10:29> Assessment & Plan Discharge Plan: Home Plan to discharge in: 48 Hours - Code Status/Comfort Care Code Status Assessed: Yes (Patient is full code) Physician Review Additional Text: Impression: Acute kidney injury likely complicated by blood pressure medications and dehydration: Chronic anemia with recent diagnosis of myelofibrosis: Essential hypertension: Coronary artery disease with stent placement x2, currently on Brilinta: Plan: Acute kidney injury likely complicated by blood pressure medications and dehyd ration: Patient had a creatinine level of 9.1 on admission. Creatinine continues trending down. Creatinine of 2.7 today. Slowly improving. On admission BUN of 81. Now 52. Improving. Kidney function was 1.2 in November of 2019. Continue gentle IV hydration, will hold off on blood pressure medications for now. Function continues to improve. Creatinines now 2.01. Will continue with gentle hydration. Possible discharged as early as today, possibly tomorrow. Appreciate further input from nephrology. Chronic anemia with recent diagnosis of myelofibrosis: Patient is seen by central sterilization technician . Patient tolerated transfusion of 2 units of irradiated PRBCs yesterday. Today patient's hemoglobin is 7.7. Will continue to monitor closely, will repeat labs. Essential hypertension: Will hold off on home medications for now. Continue hydralazine 10 mg q.4 hr for systolic blood pressure greater than 170 and a diastolic blood pressure greater than 90 if necessary. Monitor her blood pressure. Coronary artery disease with stent placement x2, currently on Brilinta: Continue Brilinta. Telemetry with no abnormal rhythms. Critical Care: No Time Spent Managing Pts Care (In Minutes): 55 <Javi Garcia - Last Filed: 06/05/20 10:29> Physician Review Additional Text: Patient was seen and examined Agree with the above assessment and plan <Tom Antonio - Last Filed: 06/05/20 14:50>
--- NOTE | 2020-06-05 15:02 | P.PN ---
Subjective Date of Service: 06/05/20 Primary Care Provider: Josiah FIGUEROA Chief Complaint: Acute kidney injury/ Hx of myelofibrosis Pt with myleofibrosis , admitted with KEIKO today no overnight events cr cont to improve can be discharged tomorrow from nephrology point of view if Cr <2.0 Physical exam general: AAOX3, NAD , obese Neck; Supple, No elevated JVD hear: RRR, normal S1,2 no murmur or rub Chest: CTAB, no rlaes or wheezes Abdomen: Soft , Nt Extremities No edema or ulcer Keiko likely multifactorial resolved Cont IVF can be discharged tomorrow from nephrology point of view if Cr <2.0 Myleofibrosis f/u with hematology transfuse to keep hb >7.0 HTN BP controlled HAGMA due to Keiko and saline cont Po bicarb Physical Examination - Vital Signs Temperature: 98.1 F Blood Pressure: 133/83 Pulse: 60 Respirations: 16 Pulse Ox (%): 100 - Physical Exam Other Physical/Emotional Findings: Lives at home
[2020-06-05] MEDS: ATORVASTATIN 40 MG TAB PO SCH (20:50)
[2020-06-06] MEDS: NA CHLORIDE 0.9% 1,000 ML IV SCH (02:00)
[2020-06-06 05:00] LABS: Absolute Lymphocytes (CBC) 0.6 K/uL (0.7-4.9); Basophils % 2.1 % (0-1.3); Hematocrit 22.6 % (39.6-49.0); Lymphocytes % 24.4 % (15.3-44.8); MPV 8.4 fL (7.6-11.3); RBC Red Blood Cell Count 2.56 M/uL (4.33-5.43)
[2020-06-06 05:15] LABS: Potassium 5.1 mmol/L (3.5-5.1)
[2020-06-06] MEDS: ASPIRIN EC 81 MG TAB PO SCH (08:09)
[2020-06-06] MEDS: FERROUS SULFATE 325 MG TAB PO SCH (08:11)
[2020-06-06] MEDS: TICAGRELOR 90 MG TABLET PO SCH ×2 (08:11→20:55)
[2020-06-06] MEDS: METOPROLOL XL 25 MG TAB PO SCH (08:12)
[2020-06-06] MEDS: SODIUM BICARB 325 MG TAB PO SCH ×3 (08:12→20:55)
[2020-06-06] MEDS: RUXOLITINIB PHOSPHATE PO SCH (09:00)
--- NOTE | 2020-06-06 09:03 | P.DS ---
Admission Date: 06/01/20 Discharge Date: 06/06/20 Primary Care Provider: Josiah FIGUEROA Reason for Admission: Acute kidney injury/ Hx of myelofibrosis Consultations: Nephrology- Dr. Good Oncology/hematology- Dr. Rahman Procedures: Renal ultrasound FINDINGS: The right kidney measures 10 cm with an increased echotexture. 4.4 centimeters cyst The left kidney measures 13 cm with an increased echotexture. 3 centimeters cyst Hydronephrosis is not seen. No gross abnormality of bladder is seen Spleen measures 20 centimeters IMPRESSION: Mildly increased renal echotexture consistent with parenchymal disease Bilateral renal cysts Splenomegaly Chest x-ray FINDINGS: The lungs appear clear of acute infiltrate. The heart is normal size IMPRESSION: No acute abnormalities displayed Medical problem list Acute kidney injury likely multifactorial including medications, myelofibrosis, dehydration Chronic anemia secondary to myelofibrosis Hypertension Hyperlipidemia CAD with prior stent placement on anti-platelet therapy Brief History of Present Illness: Patient was admitted for acute renal failure and anemia secondary to myel ofibrosis. Hospital Course: 65-year-old male with medical history of myelofibrosis, hypertension, hyperlipidemia, coronary artery disease was admitted for acute renal failure with a creatinine elevated to 8. Nephrology and hematology were consulted as patient was also anemic. Patient did receive blood transfusion, hemoglobin is up to 7.5 today. Creatinine has continued to improve day-by-day and his less than 2. Nephrology is amenable to patient being discharged today to follow up on an outpatient basis. Patient's did have renal ultrasound that showed there is likely some underlying chronic kidney disease. Cause of acute renal failure likely related to a combination of medications, myelofibrosis, and dehydration. At discharge will hold patient's lisinopril and have him follow up with nephrology and oncology. The patient has history of hypertension at discharge patient will continue with home medications of metoprolol 25 mg p.o. b.i.d.. Will hold patient's lisinopril as his blood pressure has remained stable throughout this hospitalization. Further adjustments to be made by primary care doctor/Nephrology. Patient with history of hyperlipidemia, discharge patient will continue with atorvastatin 40 mg p.o. at bedtime. Patient with history of coronary artery disease with previous stent placement. At discharge patient continue with Brillinta 90 mg p.o. b.i.d.. Patient with myelofibrosis, at discharge patient continue with home medications prescribed by MD Pittman's/oncology danazol 200 mg p.o. b.i.d., Jakafi 10 mg p.o. b.i.d.. The patient went to follow up with hematology/oncology as scheduled. <Javi Garcia - Last Filed: 06/06/20 08:55> Admission Date: 06/01/20 Discharge Date: 06/06/20 <Tom Antonio - Last Filed: 06/06/20 16:41> Disposition: ROUTINE DISCHARGE Discharge Condition: GOOD Vital Signs/Physical Exam: Temp Pulse Resp BP Pulse Ox 97.6 F 74 14 137/70 99 06/06/20 04:00 06/06/20 08:12 06/06/20 04:00 06/06/20 08:12 06/06/20 04:00 General: Alert, In no apparent distress HEENT: Atraumatic, PERRLA, EOMI Neck: Supple, JVD not distended Respiratory: Clear to auscultation bilaterally, Normal air movement Cardiovascular: Regular rate/rhythm, Normal S1 S2 Gastrointestinal: Normal bowel sounds, No tenderness Musculoskeletal: No tenderness Integumentary: No rashes Neurological: Normal speech, Normal tone, Normal affect Other Physical/Emotional Findings: Lives at home Laboratory Data at Discharge: WBC 2.3 K/uL (4.3-10.9) L D 06/06/20 04:45 Hgb 7.5 g/dL (13.6-17.9) L* 06/06/20 04:45 Hct 22.6 % (39.6-49.0) L 06/06/20 04:45 Plt Count 230 K/uL (152-406) 06/06/20 04:45 Sodium 143 mmol/L (136-145) 06/06/20 04:45 Potassium 5.1 mmol/L (3.5-5.1) 06/06/20 04:45 BUN 37 mg/dL (7-18) H 06/06/20 04:45 Creatinine 1.81 mg/dL (0.55-1.3) H 06/06/20 04:45 Glucose 108 mg/dL (74-106) H 06/06/20 04:45 Uric Acid 14.1 mg/dL (3.5-7.2) H 06/02/20 05:28 Magnesium 2.6 mg/dL (1.8-2.4) H 06/02/20 05:28 Total Bilirubin 0.6 mg/dL (0.2-1.0) 06/01/20 15:10 AST 37 U/L (15-37) 06/01/20 15:10 ALT 40 U/L (12-78) 06/01/20 15:10 Alkaline Phosphatase 85 U/L (45-117) 06/01/20 15:10 Lipase 1157 U/L (73-393) H 06/01/20 15:10 Lipase 1194 U/L (73-393) H 06/01/20 15:10 <Javi Garcia - Last Filed: 06/06/20 08:55> Vital Signs/Physical Exam: Temp Pulse Resp BP Pulse Ox 98.0 F 74 17 137/70 99 06/06/20 08:00 06/06/20 08:12 06/06/20 08:00 06/06/20 08:12 06/06/20 08:00 Laboratory Data at Discharge: WBC 2.3 K/uL (4.3-10.9) L D 06/06/20 04:45 Hgb 7.5 g/dL (13.6-17.9) L* 06/06/20 04:45 Hct 22.6 % (39.6-49.0) L 06/06/20 04:45 Plt Count 230 K/uL (152-406) 06/06/20 04:45 Sodium 143 mmol/L (136-145) 06/06/20 04:45 Potassium 5.1 mmol/L (3.5-5.1) 06/06/20 04:45 BUN 37 mg/dL (7-18) H 06/06/20 04:45 Creatinine 1.81 mg/dL (0.55-1.3) H 06/06/20 04:45 Glucose 108 mg/dL (74-106) H 06/06/20 04:45 Uric Acid 14.1 mg/dL (3.5-7.2) H 06/02/20 05:28 Magnesium 2.6 mg/dL (1.8-2.4) H 06/02/20 05:28 Total Bilirubin 0.6 mg/dL (0.2-1.0) 06/01/20 15:10 AST 37 U/L (15-37) 06/01/20 15:10 ALT 40 U/L (12-78) 06/01/20 15:10 Alkaline Phosphatase 85 U/L (45-117) 06/01/20 15:10 Lipase 1157 U/L (73-393) H 06/01/20 15:10 Lipase 1194 U/L (73-393) H 06/01/20 15:10 <Tom Antonio - Last Filed: 06/06/20 16:41> Patient Discharge Instructions: 1. Please follow up with the primary care doctor in 1-2 weeks to follow up this hospitalization. 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 2. 65-year-old male with medical history of myelofibrosis, hypertension, hyperlipidemia, coronary artery disease was admitted for acute renal failure with a creatinine elevated to 8. Nephrology and hematology were consulted as patient was also anemic with history of myelofibrosis. Patient did receive blood transfusion, hemoglobin is up to 7.5 today. Creatinine has continued to improve day-by-day and his less than 2. Nephrology is amenable to patient being discharged today to follow up on an outpatient basis. Patient's did have renal ultrasound that showed there is likely some underlying chronic kidney disease. Cause of acute renal failure likely related to a combination of medications, myelofibrosis, and dehydration. At discharge will hold patient's lisinopril and have him follow up with nephrology and oncology. The patient has history of hypertension at discharge patient will continue with home medications of metoprolol 25 mg p.o. b.i.d.. Will hold patient's lisinopril as his blood pressure has remained stable throughout this hospitalization. Further adjustments to be made by primary care doctor/Nephrology. Patient with history of hyperlipidemia, discharge patient will continue with atorvastatin 40 mg p.o. at bedtime. Patient with history of coronary artery disease with previous stent placement. At discharge patient continue with Brillinta 90 mg p.o. b.i.d.. Patient with myelofibrosis, at discharge patient continue with home medications prescribed by MD Pittman's/oncology danazol 200 mg p.o. b.i.d., Jakafi 10 mg p.o. b.i.d.. The patient went to follow up with hematology/oncology as scheduled. Diet: Regular Activity: Ad douglas Time spent managing pt's care (in minutes): 55 <Javi Garcia - Last Filed: 06/06/20 08:55> Physician Review: Patient Assessed, Agree with Above Assessment and Plan (Patient was seen and examined and findings were discussed Agree with the assessment and plan as documented by the BRITNI) <Tom Antonio - Last Filed: 06/06/20 16:41> Home Medications: Aspirin [Aspir-Low] 1 tab PO DAILY 12/07/19 Atorvastatin Calcium 1 tab PO BEDTIME 12/07/19 Ticagrelor [Brilinta*] 1 tab PO Q12HR 12/07/19 Cephalexin 500 mg PO Q6H 06/01/20 Cetirizine HCl 10 mg PO BID 06/01/20 Metoprolol Tartrate 25 mg PO BID 06/01/20 Ruxolitinib Phosphate [Jakafi] 1 tab PO BID 06/01/20 Valacyclovir [Valtrex] 500 mg PO DAILY 06/01/20 danazoL [Danazol] 200 mg PO BID 06/01/20 ondansetron HCL [Ondansetron HCl] 4 mg PO Q4HP PRN 06/01/20 Followup: Basia Miller MD [ACTIVE - CAN ADMIT] - Cony Rahman MD [ACTIVE - CAN ADMIT] -
[2020-06-06] MEDS ORDERED: NA CHLORIDE 0.9% 250 ML IV SCH (10:00)
[2020-06-06 14:15] LABS: HIV AG/AB 4TH GEN Non-reactive (Non-reactive)
[2020-06-06] MEDS ORDERED: NA CHLORIDE 0.9% 250 ML ONE (16:27)
[2020-06-06] MEDS: ACETAMINOPHEN 500 MG TAB PO PRN (18:39)
--- NOTE | 2020-06-06 20:04 | PN ---
Date of Progress Note: 06/06/2020 Subjective: The patient was admitted with severe anemia secondary to MDS crisis. The patient is sta tus post transfusion. The patient had acute kidney injury secondary to Bactrim. The patient recover after hydration. Physical Examination: Vital Signs: Blood pressure 137/70, pulse of 74, afebrile. The patient had good urine output of 280 0. Chest: Clear to auscultation. Heart: S1, S2 regular. Abdomen: Soft, nontender. Extremities: No edema. Laboratory Data: WBC 2.3, H and H 7.5/22.6. Sodium 143, potassium 5.1, bicarb 21, BUN 37, creatinin e 1.8, calcium 8.8, PC ratio 0.3. Serology MANUEL is still pending. Complement within normal limit. H epatitis panel still pending. HIV testing was negative. Assessment And Plan: 1.Acute kidney injury secondary to prerenal, superimposed with Bactrim and SIRENA inhibitor. Normal vo lume. Normal size kidney, recover back close to baseline which is 1.6. 2.Hyperkalemia has been resolved. I am going to go ahead and discontinue IV fluid. We will continu e to monitor the patient. 3.Acidosis, non-anion gap secondary to renal failure, recovered resolved. 4.Hypertension, controlled, optimal. Keep holding SIRENA inhibitor. 5.Hyperkalemia, resolved. 6.Myelodysplastic syndromes by Oncology. The patient cleared from the renal standpoint for discharge. Planning to follow up in the office in 2-3 weeks with chemistry. BARBARA Voice ID: [id number] Report ID: [id number]
[2020-06-06 20:19] LABS: HBsAG Nonreactive (Nonreactive)
[2020-06-06] MEDS: ATORVASTATIN 40 MG TAB PO SCH (20:55)
[2020-06-06 21:35] LABS: Hematocrit 25.4 % (39.6-49.0)
[2020-06-07 06:10] VITALS: O2SAT 99
[2020-06-07] MEDS: RUXOLITINIB PHOSPHATE PO SCH (09:00)
[2020-06-07 09:01] VITALS: BP 149/67; TEMP 97.7
[2020-06-07] MEDS: ACETAMINOPHEN 500 MG TAB PO PRN (09:35)
[2020-06-07] MEDS: FERROUS SULFATE 325 MG TAB PO SCH (09:36)
[2020-06-07] MEDS: METOPROLOL XL 25 MG TAB PO SCH (09:36)
[2020-06-07] MEDS: SODIUM BICARB 325 MG TAB PO SCH (09:36)
[2020-06-07] MEDS: ASPIRIN EC 81 MG TAB PO SCH (09:37)
[2020-06-07] MEDS: TICAGRELOR 90 MG TABLET PO SCH (09:47)
--- NOTE | 2020-06-07 11:31 | PN ---
Date of Progress Note: 06/07/2020 Subjective: The patient was admitted with acute kidney injury secondary to poor perfusion, ATN super imposed with acyclovir and Bactrim and SIRENA inhibitor. The patient's baseline creatinine 1.7. After hydration, patient down to 1.8. Patient is status post transfusion yesterday. Physical Examination: Vital Signs: Blood pressure 149/67, pulse of 71 afebrile. The patient had good urine output of 2800 . Chest: Clear to auscultation. Heart: S1, S2 regular. Abdomen: Soft, nontender. Extremities: No edema. Neurologic: Alert and oriented x3. No focal. Laboratory Data: WBC 2.3, H and H 8.6/25.4. Sodium 143, potassium 5.1, bicarb 21, BUN 37, creatinin e 1.8, calcium 8.8. Current Medications: The patient on include, 1.Aspirin. 2.Ferrous sulfate. 3.Brilinta. 4.Atorvastatin. 5.Metoprolol. 6.Sodium bicarb 650 t.i.d. Assessment And Plan: 1.Acute kidney injury, normal-sized kidney. Nonproteinuric, nonnephrotic, secondary to poor perfusi on, acute tubular necrosis, superimposed with Bactrim, acyclovir, and SIRENA inhibitor, recovered back c lose to baseline. Okay from the renal standpoint for discharge planning. Continue on holding SIRENA in hibitor and Bactrim for the time being. We will follow up as outpatient. 2.Hypertension, controlled, optimal. Keep holding SIRENA inhibitor. 3.Myelodysplastic syndromes, as by hematology status post transfusion. NATHALIA/JENNIFER Voice ID: [id number] Report ID: [id number]
[2020-06-07 22:27] LABS: Vitamin D 1,25-Dihydroxy Total 15 pg/mL (18-72); Vitamin D,1,25-OH2, D2 <8 pg/mL
[2020-06-07 23:04] LABS: Albumin, (SPE) 3.2 g/dL (3.8-4.8); Alpha-1-Globulins 0.4 g/dL (0.2-0.3); Gamma Globulins 0.6 g/dL (0.8-1.7); INTERPRETATION REPORT
--- NOTE | 2020-06-15 14:21 | P.DS ---
Admission Date: 06/01/20 Discharge Date: 06/15/20 Primary Care Provider: Josiah FIGUEROA Disposition: ROUTINE DISCHARGE Discharge Condition: GOOD Reason for Admission: Acute kidney injury/ Hx of myelofibrosis Brief History of Present Illness: Patient was admitted for acute renal failure and anemia secondary to myelofibrosis. Hospital Course: Hospital Course: 65-year-old male with medical history of myelofibrosis, hypertension, hyperlipidemia, coronary artery disease was admitted for acute renal failure with a creatinine elevated to 8. Nephrology and hematology were consulted as patient was also anemic. Patient did receive blood transfusion, hemoglobin is up to 7.5 today. Creatinine has continued to improve day-by-day and his less than 2. Nephrology is amenable to patient being discharged today to follow up on an outpatient basis. Patient's did have renal ultrasound that showed there is likely some underlying chronic kidney disease. Cause of acute renal failure likely related to a combination of medications, myelofibrosis, and dehydration. At discharge will hold patient's lisinopril and have him follow up with nephrology and oncology. The patient has history of hypertension at discharge patient will continue with home medications of metoprolol 25 mg p.o. b.i.d.. Will hold patient's lisinopril as his blood pressure has remained stable throughout this hospitalization. Further adjustments to be made by primary care doctor/Nephrology. Patient with history of hyperlipidemia, discharge patient will continue with atorvastatin 40 mg p.o. at bedtime. Patient with history of coronary artery disease with previous stent placement. At discharge patient continue with Brillinta 90 mg p.o. b.i.d.. Patient with myelofibrosis, at discharge patient continue with home medications prescribed by MD Pittman's/oncology danazol 200 mg p.o. b.i.d., Jakafi 10 mg p.o. b.i.d.. The patient went to follow up with hematology/oncology as scheduled. Vital Signs/Physical Exam: Temp Pulse Resp BP Pulse Ox 97.7 F 71 16 149/67 H 100 06/07/20 08:00 06/07/20 09:36 06/07/20 08:00 06/07/20 09:36 06/07/20 08:00 General: Alert, In no apparent distress HEENT: Atraumatic, Normocephalic Neck: Supple Respiratory: Clear to auscultation bilaterally Cardiovascular: Normal pulses, Regular rate/rhythm Capillary refill: <2 Seconds Gastrointestinal: Soft and benign, W/out hepatosplenomegaly Musculoskeletal: No clubbing, No swelling Integumentary: No rashes Neurological: Normal speech, Normal strength at 5/5 x4 extr Other Physical/Emotional Findings: Lives at home Laboratory Data at Discharge: WBC 2.3 K/uL (4.3-10.9) L D 06/06/20 04:45 Hgb 8.6 g/dL (13.6-17.9) L 06/06/20 21:20 Hct 25.4 % (39.6-49.0) L 06/06/20 21:20 Plt Count 230 K/uL (152-406) 06/06/20 04:45 Sodium 143 mmol/L (136-145) 06/06/20 04:45 Potassium 5.1 mmol/L (3.5-5.1) 06/06/20 04:45 BUN 37 mg/dL (7-18) H 06/06/20 04:45 Creatinine 1.81 mg/dL (0.55-1.3) H 06/06/20 04:45 Glucose 108 mg/dL (74-106) H 06/06/20 04:45 Uric Acid 14.1 mg/dL (3.5-7.2) H 06/02/20 05:28 Magnesium 2.6 mg/dL (1.8-2.4) H 06/02/20 05:28 Total Bilirubin 0.6 mg/dL (0.2-1.0) 06/01/20 15:10 AST 37 U/L (15-37) 06/01/20 15:10 ALT 40 U/L (12-78) 06/01/20 15:10 Alkaline Phosphatase 85 U/L (45-117) 06/01/20 15:10 Lipase 1157 U/L (73-393) H 06/01/20 15:10 Lipase 1194 U/L (73-393) H 06/01/20 15:10 Home Medications: Aspirin [Aspir-Low] 1 tab PO DAILY 12/07/19 Atorvastatin Calcium 1 tab PO BEDTIME 12/07/19 Ticagrelor [Brilinta*] 1 tab PO Q12HR 12/07/19 Cetirizine HCl 10 mg PO BID 06/01/20 Metoprolol Tartrate 25 mg PO BID 06/01/20 Ruxolitinib Phosphate [Jakafi] 1 tab PO BID 06/01/20 Valacyclovir [Valtrex*] 500 mg PO DAILY 06/01/20 danazoL [Danazol] 200 mg PO BID 06/01/20 ondansetron HCL [Ondansetron HCl] 4 mg PO Q4HP PRN 06/01/20 Amlodipine [Norvasc*] 5 mg PO DAILY #30 tab 06/07/20 Atorvastatin Calcium [Lipitor] 40 mg PO BEDTIME #0 tab 06/07/20 Ferrous Sulfate [Ferrous Sulfate*] 325 mg PO DAILY #30 tab 06/07/20 Metoprolol Succinate [Toprol Xl*] 25 mg PO DAILY #0 tab 06/07/20 Na Bicarb Tab [Sodium Bicarb 325 MG Tab*] 650 mg PO TID #60 tab 06/07/20 New Medications: Ferrous Sulfate [Ferrous Sulfate*] 325 mg PO DAILY #30 tab Amlodipine [Norvasc*] 5 mg PO DAILY #30 tab Na Bicarb Tab [Sodium Bicarb 325 MG Tab*] 650 mg PO TID #60 tab Patient Discharge Instructions: 1. Please follow up with the primary care doctor in 1-2 weeks to follow up this hospitalization. 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 2. 65-year-old male with medical history of myelofibrosis, hypertension, hyperlipidemia, coronary artery disease was admitted for acute renal failure with a creatinine elevated to 8. Nephrology and hematology were consulted as patient was also anemic with history of myelofibrosis. Patient did receive blood transfusion, hemoglobin is up to 7.5 today. Creatinine has continued to improve day-by-day and his less than 2. Nephrology is amenable to patient being discharged today to follow up on an outpatient basis. Patient's did have renal ultrasound that showed there is likely some underlying chronic kidney disease. Cause of acute renal failure likely related to a combination of medications, myelofibrosis, and dehydration. At discharge will hold patient's lisinopril and have him follow up with nephrology and oncology. The patient has history of hypertension at discharge patient will continue with home medications of metoprolol 25 mg p.o. b.i.d.. Will hold patient's lisinopril as his blood pressure has remained stable throughout this hospitalization. Further adjustments to be made by primary care doctor/Nephrology. Patient with history of hyperlipidemia, discharge patient will continue with atorvastatin 40 mg p.o. at bedtime. Patient with history of coronary artery disease with previous stent placement. At discharge patient continue with Brillinta 90 mg p.o. b.i.d.. Pa tient with myelofibrosis, at discharge patient continue with home medications prescribed by MD Pittman's/oncology danazol 200 mg p.o. b.i.d., Jakafi 10 mg p.o. b.i.d.. The patient went to follow up with hematology/oncology as scheduled. Diet: Regular Activity: Ad douglas Followup: Basia Miller MD [ACTIVE - CAN ADMIT] - (Call to make an appointment. ) Cony Rahman MD [ACTIVE - CAN ADMIT] - (Call to make an appointment. ) Physician Review: Patient Assessed, Agree with Above Assessment and Plan (Patient was seen and examined and findings were discussed on 06/07/2020 This note is for the encounter room on the day 06/07/2020) Time spent managing pt's care (in minutes): 42
--- NOTE | 2020-06-15 14:26 | P.PN ---
Subjective Date of Service: 06/06/20 Primary Care Provider: Josiah FIGUEROA Chief Complaint: Acute kidney injury/ Hx of myelofibrosis Subjective: No new changes Review of Systems 10-point ROS is otherwise unremarkable Physical Examination - Vital Signs Temperature: 97.7 F Blood Pressure: 149/67 Pulse: 71 Respirations: 16 Pulse Ox (%): 100 - Physical Exam General: Alert, In no apparent distress, Oriented x3 HEENT: Atraumatic, Normocephalic Neck: Supple, 2+ carotid pulse no bruit Respiratory: Clear to auscultation bilaterally, Normal air movement Cardiovascular: Regular rate/rhythm, Normal S1 S2 Capillary refill: <2 Seconds Gastrointestinal: Normal bowel sounds, Soft and benign Musculoskeletal: No clubbing Integumentary: No rashes Neurological: Normal speech, Normal strength at 5/5 x4 extr Lymphatics: No axilla or inguinal lymphadenopathy Other Physical/Emotional Findings: Lives at home Assessment & Plan Physician Review: Patient Assessed, Agree with Above Assessment and Plan (Patient was seen and examined and findings were discussed on 06/07/2020 This note is for the encounter room on the day 06/07/2020) Physician Review Additional Text: Impression: Acute kidney injury likely complicated by blood pressure medications and dehydration: Chronic anemia with recent diagnosis of myelofibrosis: Essential hypertension: Coronary artery disease with stent placement x2, currently on Brilinta: Plan: Acute kidney injury likely complicated by blood pressure medications and dehydration: Patient had a creatinine level of 9.1 on admission. Creatinine continues trending down. Creatinine of 2.7 today. Slowly improving. On admission BUN of 81. Now 52. Improving. Kidney function was 1.2 in November of 2019. Continue gentle IV hydration, will hold off on blood pressure medications for now. Function continues to improve. Creatinines now 2.01. Will continue with gentle hydration. Possible discharged as early as today, possibly tomorrow. Appreciate further input from nephrology. Chronic anemia with recent diagnosis of myelofibrosis: Patient is seen by director education . Patient tolerated transfusion of 2 units of irradiated PRBCs yesterday. Today patient's hemoglobin is 7.7. Will continue to monitor closely, will repeat labs. Essential hypertension: Will hold off on home medications for now. Continue hydralazine 10 mg q.4 hr for systolic blood pressure greater than 170 and a diastolic blood pressure greater than 90 if necessary. Monitor her blood pressure. Coronary artery disease with stent placement x2, currently on Brilinta: Continue Brilinta. Telemetry with no abnormal rhythms. Critical Care: No Time Spent Managing Pts Care (In Minutes): 43 The patient was seen and examined and findings were discussed on 06/06/2020 This note is for encounter on the day 06/06 Time Spent Managing Pts Care (In Minutes): 42
== END 2020-06-07 12:30 | disposition home or self-care (01) | DRG 683 ==
LOC: ER 13:43 → ERHOLD 17:20 → 2ND 18:10
PROVIDERS: ADMIT Family Medicine; ATTEND Family Medicine
PROC: 30233N1 Transfusion of Nonautologous Red Blood Cells into Peripheral Vein, Percutaneous Approach (ICD-10-PCS; principal; 2020-06-06)
DX: N17.0 Acute kidney failure with tubular necrosis (principal); D75.81 Myelofibrosis; E87.2 Acidosis; I25.10 Atherosclerotic heart disease of native coronary artery without angina pectoris; E86.0 Dehydration; E78.5 Hyperlipidemia, unspecified; I12.9 Hypertensive chronic kidney disease with stage 1 through stage 4 chronic kidney disease, or unspecified chronic kidney disease; N18.9 Chronic kidney disease, unspecified; D69.6 Thrombocytopenia, unspecified; E87.5 Hyperkalemia; N28.1 Cyst of kidney, acquired; R16.1 Splenomegaly, not elsewhere classified; D46.9 Myelodysplastic syndrome, unspecified; E66.9 Obesity, unspecified; T50.905A Adverse effect of unspecified drugs, medicaments and biological substances, initial encounter; Z68.26 Body mass index [BMI] 26.0-26.9, adult; Z79.82 Long term (current) use of aspirin; Z11.59 Encounter for screening for other viral diseases; Z95.5 Presence of coronary angioplasty implant and graft; Z88.1 Allergy status to other antibiotic agents; Z87.891 Personal history of nicotine dependence; Z79.899 Other long term (current) drug therapy
CPT/HCPCS: 36415; 36430; 71045; 76770; 80048; 80053; 80076; 81003; 82553; 82570; 82652; 82947; 83010; 83520; 83615; 83690; 83735; 84156; 84165; 84300; 84439; 84443; 84550; 85014; 85018; 85025; 86021; 86038; 86160; 86225; 86317; 86430; 86704; 86706; 86850; 86900; 86901; 86922; 87086; 87088; 87340; 87389; 88108; 99285; J7030; J7050; P9040; U0002

== ENCOUNTER 2020-07-03 08:34 | Day surgery (SDC) | payer OTHER ==
--- OUTSIDE RECORDS SUMMARY | 2020-07-03 08:51 | XMS REPORT | Continuity of Care Document ---
:1955 Author Organization [facility] Matheus Information [place] Care Team Providers Name Role Phone [facility]uelabs [place] Unavailable Un available Problems Problem Status Onset Classification Date Comments Sourc e Date Reported ANEMIA, Active 12/15/19 [facility] HEMOLYSIS 20 [place] ABNORMAL Active 10/06/[address] [place] [address] FINDINGS ON 19 DIAGNOSTIC IMAGING R93.1 Active 10/06/[address] [place] [address] 19 R07.89, R06.02, Active 09/12/20 [place] Anemia Active Problem 06/11/2020 Medica l (disorder) Group,[facility] At risk of Active Problem 06/11/2020 Medic al coronary heart Group , disease [place],[facility] (finding) [facility] Benign Active Problem 06/11/2020 Medica l hypertension Group,M (disorder) [facility] Gouty Active Problem 06/11/2020 Medica l arthropathy Group, (disorder) [facility] Leukopenia Active Problem 06/11/2020 Medic al (disorder) Group,[facility] Encounter for 10/24/2019 [facility] routine child health examination without abnormal findings ABNORMAL Active [place] [facility] FINDINGS ON DX IMAGING OF HEART ATHSCL HEART [place] [facility] DISEASE OF [place] CORONARY ENCNTR FOR Active [facility] est ROUTINE CHILD HEALTH EXAM W/O Medications Medication Details Route Status Patient Ordering Order Source Instructions Provider Date Ticagrelor 90 MG Oral = 1 tab, Active 06/08/ M H Medical Tablet [Brilinta] PO, Q12H, # 2020 [place] 60 tab, 6 Refill(s), Pharmacy: [facility] [id number], 170.18, cm, 12/16/19 8:12:00 DRAW HAND, Height, 79.091, kg, 12/16/19 8:12:00 DRAW HAND, Weight ticagrelor 90 mg oral 90 mg, PO, Active Medical tablet Q12H, # 60 2020 Group tab, 5 Refill(s), Pharmacy: [facility] [id number] metoprolol tartrate 25 mg = 1 Active Medical 25 mg oral tablet tab, PO, 2020 Group BID, # 60 tab, 5 Refill(s), Pharmacy: [facility] 140 lisinopril 20 mg oral 20 mg = 1 Active Medical tablet tab, PO, 2020 Group Daily, # 30 tab, 5 Refill(s), Pharmacy: [facility] 140 lisinopril 20 mg oral 20 mg = 1 Inactive Medical tablet tab, PO, 2019 Group Daily, # 90 tab, 0 Refill(s) atorvastatin 40 mg 40 mg, PO, Active Medical oral tablet Bedtime, # 2020 Group 40 tab, 5 Refill(s), Pharmacy: [facility] 140 metoprolol tartrate 12.5 mg = Active 25 mg oral tablet 0.5 tab, 2018 [facility] PO, BID, # 60 tab, 0 Refill(s), Pharmacy: [facility] 140 Colchicine 0.6 MG 0.6 mg = 1 Active Oral Capsule cap, PO, 2018 [facility] , # 30 tab, 0 Refill(s), Pharmacy: [facility] 140 allopurinol 300 mg 300 mg = 1 Active oral tablet tab, PO, 2018 [facility] Daily, # 90 tab, 1 Refill(s), Pharmacy: [facility] 140 lisinopril 20 mg oral 20 mg = 1 Active tablet tab, PO, 2018 Daily, # 90 tab, 0 Refill(s), Pharmacy: [facility] 140 Allopurinol Notes: Inactive (Same as: 2018 [facility] Zyloprim) Colchicine 0.6 MG 0.6 mg, 1 No Longer Oral Tablet [Colcrys] tab, Route: Active 2018 [facility] PO, Drug form: TAB, BID, Dosing Weight 79.5, kg, Start date: 10/21/19 21:00:00 DRAW HAND, Duration: 30 day, Stop date: 11/20/19 17:00:00 DRAW HAND, 0 Vancomycin 2001 mg: No Longer infuse over Active 2018 [facility] 2.5 hours For adult patients only: Round to nearest 250 mg per Medical Staff approval MEDICATION WASTE Product Size: 1000 mg Product Wasted: ___ mg Rocephin + sterile Notes: No Longer water 20 mL (Same As: Active 2018 [facility] Rocephin). Use with 100 mL NS and infuse over 30 min MEDICATION WASTE Product Size: 2000 mg Product Wasted: ___ mg ferrous sulfate Notes: Give No Longer with food. Active 2018 [facility] iron elemental 48le=128am as ferrous sulfate Dose=___mg elemental iron Hydrochlorothiazide 1 tab, No Longer 12.5 MG / Lisinopril Route: PO, Active 2018 [facility] 20 MG Oral Tablet Drug Form: TAB, Dosing Weight 79.5, kg, Daily, Start date: 10/20/19 9:00:00 DRAW HAND, Duration: 30 day, Stop date: 11/18/19 9:00:00 DRAW HAND Loratadine 10 MG Oral 10 mg, 1 No Longer Tablet [Claritin] tab, Route: Active 2018 [facility] PO, Drug form: TAB, Daily, Dosing Weight 79.5, kg, Start date: 10/20/19 9:00:00 DRAW HAND, Duration: 30 day, Stop date: 11/18/19 9:00:00 DRAW HAND Aspirin 81 MG Enteric Notes: Do No Longer Coated Tablet not crush Active [facility]. (Same As: Ecotrin) lisinopril Notes: No Longer (Same as: Active 2018 [facility] Prinivil, Zestril) hydrochlorothiazide Notes: No Longer (Same as: Active 2018 [facility] Hydrodiuril ). Give with food. cetirizine Notes: No Longer (Same As: Active 2018 [facility] Zyrtec) atorvastatin Notes: No Longer (Same as: Active 2018 [facility] Lipitor) Ticagrelor Notes: No Longer (Same as: Active 2018 [facility] Brilinta) BD Normal Saline Notes: Same No Longer 10/19/ H Flush as: BD Active 2018 [facility] Posiflush Sterile Sodium Chloride 0.9% 250 mL, No Longer H IV Route: Active 2018 [facility] IVPB, Start date: 10/19/19 15:50:00 DRAW HAND, Duration: 30 day, Stop date: 11/18/19 15:49:00 DRAW HAND, PRN Line Flush, 0 Aspirin 81 MG Enteric 81 mg, PO, Active Coated Tablet Daily, 0 2019 [facility] Refill(s) atorvastatin 40 mg 40 mg, PO, Active oral tablet Bedtime, # 2019 [facility] 40 tab, 0 Refill(s), Pharmacy: [facility] 1405 ticagrelor 90 mg oral 90 mg, PO, Active tablet Q12H, # 60 2019 [facility] tab, 0 Refill(s), Pharmacy: [facility] 140 Sodium Chloride 0.9% 750 mL, Inactive IV 750 mL Rate: 75 2018 [facility] ml/hr, Infuse over: 10 hr, Route: IV, Dosing Weight 79.5 kg, Total Volume: 750, Start date: 10/19/19 13:46:00 DRAW HAND, Duration: 10 hr, Stop date: 10/19/19 23:45:00 DRAW HAND, 1.96, m2, 0 Acetaminophen Notes: Do No Longer not exceed Active 2019 [facility] 4 gm/day. (Same as: Tylenol) Acetaminophen 325 MG Notes: No Longer H / Hydrocodone (Same as: Active 2018 [place] [facility] [facility] Bitartrate 5 MG Oral [place] Tablet 325/5) Do not exceed 4gm/day of acetaminoph en. Ondansetron Notes: No Longer (Same as: Active 2019 [facility] Zofran) MEDICATION WASTE Product Size: 4 mg Product Wasted: ___ mg Sodium Chloride 0.9% 1,000 mL, No Longer IV 1,000 mL Rate: 100 Active 2018 [facility] ml/hr, Infuse over: 10 hr, Route: IV, Dosing Weight 79.091 kg, Total Volume: 1,000, Start date: 10/19/19 8:13:00 DRAW HAND, Duration: 30 day, Stop date: 11/18/19 8:12:00 DRAW HAND, 1.95, m2, 0 Aspirin 325 MG Oral 325 mg = 1 Active H Medical Tablet tab, PO, 2018 Group Q4H, PRN Headache 6-10, 0 Refill(s) Ranitidine 150 MG 150 mg = 1 Active Medical Oral Capsule cap, PO, 2018 Group Daily, 0 Refill(s) Hydrochlorothiazide 1 tab, PO, Active H Medical 12.5 MG / Lisinopril Daily 2018 [place] 20 MG Oral Tablet Ranitidine 2 mg/kg, Active Medical PO, PRN 2018 Group Zantac 2 mg/kg, Inactive Medical PO, PRN 2018 Group ferrous sulfate 325 325 mg = 1 Active H Medical mg oral enteric tab, PO, 2018 Group coated tablet Daily Loratadine 10 MG Oral 10 mg = 1 Active Medical Tablet [Claritin] tab, PO, 2018 Group Daily Allergies, Adverse Reactions, Alerts Substance Category Reaction Severity Reaction Status Date Comments S ource type Reported No Known Assertion Drug Medication allergy Medic al Allergies Group Immunizations No Data Provided for This Section Results Order Name Results Value Reference Date Interpretation Comments Farideh rce Range HEMATOLOGY WBC 2.3 3.7 - 10.4 12/16 [place] HEMATOLOGY RBC 3.31 4.70 - 12/16 MH 6.10 [place] HEMATOLOGY Hgb 8.7 14.0 - 12/16 MH 18.0 [place] HEMATOLOGY Hct 26.7 42.0 - 12/16 MH 54.0 [place] HEMATOLOGY MCV 80.8 80.0 - 12/16 MH 94.0 [place] HEMATOLOGY MCH 26.4 27.0 - 12/16 MH 31.0 [place] HEMATOLOGY MCHC 32.7 32.0 - 12/16 MH 36.0 [place] HEMATOLOGY RDW 22.7 11.5 - 12/16 MH 14.5 [place] HEMATOLOGY Platelet 230 133 - 450 12/16 [place] HEMATOLOGY MPV 6.9 7.4 - 10.4 12/16 [place] HEMATOLOGY Segs 64.0 45.0 - 12/16 MH 75.0 [place] HEMATOLOGY Bands 2.0 0.0 - 11.0 12/16 [place] HEMATOLOGY Lymphocytes 22.0 20.0 - 12/16 MH 40.0 [place] HEMATOLOGY Monocytes 8.0 2.0 - 12.0 12/16 [place] HEMATOLOGY Eosinophils 3.0 0.0 - 4.0 12/16 [place] HEMATOLOGY Basophils 1.0 0.0 - 1.0 12/16 [place] HEMATOLOGY Neutrophils 1.5 1.5 - 8.1 12/16 # [place] HEMATOLOGY Lymphocytes 0.5 1.0 - 5.5 12/16 # [place] HEMATOLOGY Monocytes # 0.2 0.0 - 0.8 12/16 [place] HEMATOLOGY Eosinophils 0.1 0.0 - 0.5 12/16 # [place] HEMATOLOGY Basophils # 0.0 0.0 - 0.2 12/16 [place] HEMATOLOGY NRBC 1 12/16 [place] HEMATOLOGY Tot Cell Ct 100 12/16 [facility] Anisocyte 1+ None Seen 12/16 *ABN* [place] (12/16/19 8:19 AM) HEMATOLOGY Polychrom few 12/16 [place] HEMATOLOGY Tear Cell few 12/16 [place] HEMATOLOGY Large Plt few 12/16 [place] HEMATOLOGY Retic Auto 6.0 0.5 - 1.5 12/16 [place] URINE AND Occult Bld Negative Negative 10/22 STOOL [facility] (10/22/19 9:18 AM) [facility] CHEM PANEL Glucose Lvl 98 70 - 99 10/22 [facility] CHEM PANEL BUN 24 7 - 22 10/22 [facility] CHEM PANEL Creatinine 1.40 0.50 - 10/22 Lvl 1.40 [facility] CHEM PANEL Sodium Lvl 138 135 - 145 10/22 [facility] CHEM PANEL Potassium 4.0 3.5 - 5.1 10/22 Lvl /2018 [facility] CHEM PANEL Chloride Lvl 105 95 - 109 10/22 [facility] CHEM PANEL CO2 26 24 - 32 10/22 [facility] CHEM PANEL AGAP 11.0 10.0 - 10/22 20.0 [facility] CHEM PANEL Calcium Lvl 9.1 8.5 - 10.5 10/22 [facility] CHEM PANEL eGFR 53 10/22 [facility] Comment: The [facility] eGFR is calculated using the CKD-EPI formula. In most young, healthy individuals the eGFR will be >90 mL/min/1.73m2 . The eGFR declines with age. An eGFR of 60-89 may be normal in some populations, particularly the elderly, for whom the CKD-EPI formula has not been extensively validated. Use of the eGFR is not recommended in the following populations:< br/>
Dorothy viduals with unstable creatinine concentration s, including patients and those with serious co-morbid conditions.<b r/>
Patie nts with extremes in muscle mass or diet.

The data above are obtained from the National Kidney Disease Education Program (NKDEP) which additionally recommends that when the eGFR is used in patients with extremes of body mass index for purposes of drug dosing, the eGFR should be multiplied by the estimated BMI. HEMATOLOGY WBC 2.0 3.7 - 10.4 10/22 [facility] HEMATOLOGY RBC 3.06 4.70 - 10/22 MH 6.10 [facility] Hgb 8.1 14.0 - 10/22 MH 18.0 [facility] HEMATOLOGY Hct 24.0 42.0 - 10/22 MH 54.0 [facility] HEMATOLOGY MCV 78.4 80.0 - 10/22 MH 94.0 [facility] HEMATOLOGY MCH 26.3 27.0 - 10/22 MH 31.0 [facility] MCHC 33.6 32.0 - 10/22 MH 36.0 [facility] HEMATOLOGY RDW 21.5 11.5 - 10/22 MH 14.5 [facility] Platelet 168 133 - 450 10/22 [facility] HEMATOLOGY MPV 7.5 7.4 - 10.4 10/22 [facility] HEMATOLOGY Segs 56.6 45.0 - 10/22 MH 75.0 /2019 [facility] Lymphocytes 22.0 20.0 - 10/22 MH 40.0 2019 [facility] HEMATOLOGY Monocytes 12.4 2.0 - 12.0 10/22 [facility] HEMATOLOGY Eosinophils 7.2 0.0 - 4.0 10/22 [facility] HEMATOLOGY Basophils 1.8 0.0 - 1.0 10/22 [facility] HEMATOLOGY Neutrophils 1.1 1.5 - 8.1 10/22 # /2019 [facility] HEMATOLOGY Lymphocytes 0.4 1.0 - 5.5 10/22 # /2019 [place] HEMATOLOGY Monocytes # 0.3 0.0 - 0.8 10/22 [facility] HEMATOLOGY Eosinophils 0.1 0.0 - 0.5 10/22 # /2019 [facility] HEMATOLOGY Microcyte 1+ None Seen 10/22 *ABN* /2018 [facility] (10/22/19 6:38 AM) HEMATOLOGY Polychrom Moderate None Seen 10/22 *ABN* [facility] (10/22/19 6:38 AM) HEMATOLOGY Tear Cell Moderate None Seen 10/22 *ABN* [facility] (10/22/19 6:38 AM) HEMATOLOGY Large Plt Moderate None Seen 10/22 *ABN* [facility] (10/22/19 6:38 AM) IMMUNOLOGY HIV Ag/Ab Negative Negative 10/22 4th Gen *NA [facility] (10/22/19 6:38 AM) MOLECULAR Source Nasophrngl Swb 10/21 DIAGNOSTIC Respiratory * [facility] Panel PCR (10/21/19 4:52 PM) MOLECULAR Influenza A Negative Negative 10/21 DIAGNOSTIC PCR *NA [facility] (10/21/19 4:52 PM) MOLECULAR Influenza B Negative Negative 10/21 DIAGNOSTIC PCR *NA [facility] (10/21/19 4:52 PM) MOLECULAR RSV PCR Negative Negative 10/21 DIAGNOSTIC *NA [facility] (10/21/19 4:52 PM) CHEM PANEL Glucose Lvl 145 70 - 99 10/21 [facility] CHEM PANEL BUN 21 7 - 22 10/21 [facility] CHEM PANEL Creatinine 1.40 0.50 - 10/21 Lvl 1.40 /2018 [facility] CHEM PANEL Sodium Lvl 138 135 - 145 10/21 [facility] CHEM PANEL Potassium 4.0 3.5 - 5.1 10/21 Lvl [facility] CHEM PANEL Chloride Lvl 107 95 - 109 10/21 [facility] CHEM PANEL CO2 23 24 - 32 10/21 [facility] CHEM PANEL Calcium Lvl 8.6 8.5 - 10.5 10/21 [facility] CHEM PANEL eGFR 53 10/21 [facility] Comment: The [facility] eGFR is calculated using the CKD-EPI formula. In most young, healthy individuals the eGFR will be >90 mL/min/1.73m2 . The eGFR declines with age. An eGFR of 60-89 may be normal in some populations, particularly the elderly, for whom the CKD-EPI formula has not been extensively validated. Use of the eGFR is not recommended in the following populations:< br/>
Dorothy viduals with unstable creatinine concentration s, including patients and those with serious co-morbid conditions.<b r/>
Patie nts with extremes in muscle mass or diet.

The data above are obtained from the National Kidney Disease Education Program (NKDEP) which additionally recommends that when the eGFR is used in patients with extremes of body mass index for purposes of drug dosing, the eGFR should be multiplied by the estimated BMI. CHEM PANEL AGAP 12.0 10.0 - 10/21 MH 20.0 [facility] HEMATOLOGY WBC 2.4 3.7 - 10.4 10/21 [facility] HEMATOLOGY RBC 2.74 4.70 - 10/21 MH 6.10 [facility] HEMATOLOGY Hgb 7.2 14.0 - 10/21 MH 18.0 [facility] HEMATOLOGY Hct 21.4 42.0 - 10/21 MH 54.0 [facility] HEMATOLOGY MCV 78.2 80.0 - 10/21 94.0 [facility] HEMATOLOGY MCH 26.3 27.0 - 10/21 MH 31.0 [facility] HEMATOLOGY MCHC 33.7 32.0 - 10/21 MH 36.0 [facility] HEMATOLOGY RDW 20.9 11.5 - 10/21 MH 14. [facility] Platelet 198 133 - 450 10/21 [facility] HEMATOLOGY MPV 7.8 7.4 - 10.4 10/21 [facility] HEMATOLOGY Plt Morph Normal Normal 10/21 (10/21/19 9:29 AM) /2018 [facility] est HEMATOLOGY Segs 73.5 45.0 - 10/21 MH 75.0 2019 [facility] HEMATOLOGY Lymphocytes 12.3 20.0 - 12 MH 40.0 2019 [facility] HEMATOLOGY Monocytes 7.9 2.0 - 12.0 10/21 [facility] HEMATOLOGY Eosinophils 4.5 0.0 - 4.0 10/21 [facility] HEMATOLOGY Basophils 1.8 0.0 - 1.0 10/21 /2018 [facility] HEMATOLOGY Neutrophils 1.7 1.5 - 8.1 10/21 MH # /2018 [facility] HEMATOLOGY Lymphocytes 0.3 1.0 - 5.5 10/21 # /2018 [facility] HEMATOLOGY Monocytes # 0.2 0.0 - 0.8 10/21 [facility] HEMATOLOGY Eosinophils 0.1 0.0 - 0.5 10/21 # /2018 [facility] HEMATOLOGY Basophils # 0.0 0.0 - 0.2 10/21 [facility] HEMATOLOGY Microcyte 1+ None Seen 10/21 *ABN* /2018 [facility] (10/21/19 9:29 AM) HEMATOLOGY Polychrom Moderate None Seen 10/21 *ABN* /2018 [facility] (10/21/19 9:29 AM) ANEMIA Ferritin Lvl 430 22 - 275 10/21 STUDY [facility] CHEM PANEL Uric Acid 9.6 3.8 - 8.0 10/21 [facility] CHEM PANEL LDH 916 98 - 192 10/21 [facility] HEMATOLOGY Retic Auto 5.9 0.5 - 1.5 10/21 [facility] HEMATOLOGY PB Smear Microcytic 10/21 Path , /2018 [facility] hypochromi c anemia with anisopoiki locytosis including dacrocytes , elliptocyt es, and circulatin g nucleated red blood cells. Moderate to marked polychroma miranda. Leukopenia with absolute lymphopeni a. Mildly left shifted granulocyt es. Platelets normal in number with occasional large platelets identified . Clinical correlatio n is recommende d. ANEMIA Iron 69 45 - 160 10/20 STUDY /2018 [facility] ANEMIA TIBC 288 228 - 428 10/20 STUDY [facility] ANEMIA UIBC 219 110 - 370 10/20 STUDY /2018 [facility] ANEMIA % Satur Fe 24 12 - 57 10/20 STUDY /2018 [facility] ANEMIA Vitamin B12 314 254 - 1320 10/20 STUDY Lvl /2018 [facility] BLOOD BANK ABO/Rh A POS 10/20 RESULTS /2018 [facility] BLOOD BANK Antibody Negative 10/20 RESULTS Scrn (10/20/19 4:21 PM) /[facility] UA Turbidity Clear Clear 10/20 STOOL (10/20/19 4:21 PM) /2018 [facility] est URINE AND UA Spec Grav 1.016 <=1.030 10/20 STOOL /2019 [facility] URINE AND UA pH 5.0 5.0 - 8.0 10/20 STOOL /2019 [facility] URINE AND UA Protein Negative Negative 10/20 STOOL mg/dL mg/dL /2018 [facility] URINE AND UA Glucose Negative Negative 10/20 [facility] mg/dL mg/dL [place] URINE AND UA Ketones Negative Negative 10/20 [facility]OOL mg/dL mg/dL [place] URINE AND UA Bili Negative Negative 10/20 STOOL *NA* /2018 [facility] (10/20/19 4:21 PM) URINE AND UA Blood Negative Negative 10/20 STOOL (10/20/19 4:21 PM) [facility] URINE AND UA 2.0 0.1 - 1.0 10/20 STOOL Urobilinogen /2018 [facility] URINE AND UA Nitrite Negative Negative 10/20 [facility] (10/20/19 4:21 PM) [facility] URINE AND UA Leuk Est Negative Negative 10/20 [facility]OOL (10/20/19 4:21 PM) [facility] URINE AND UA WBC <1 0 - 5 10/20 STOOL [facility] URINE AND UA RBC <1 0 - 2 10/20 STOOL [facility] URINE AND UA Mucus Few /LPF None Seen 10/20 STOOL /LPF /2018 [facility] URINE AND UA Sq Epi None Seen 10/20 STOOL [facility] URINE AND UA Color Yellow 10/20 STOOL [facility] BLOOD BANK RBC product Product available 4 10/20 [facility] RESULTS (10/20/19 2:45 PM) Comment: [facility] 10/20/2019 18:00 GEMONROY
Blood product is ready to be picked up. Called, transferred, no answer. CHEM PANEL Creatinine 1.10 0.50 - 10/20 Lvl 1.40 /2018 [facility] CHEM PANEL eGFR 72 10/20 Result Comment: The [facility] eGFR is calculated using the CKD-EPI formula. In most young, healthy individuals the eGFR will be >90 mL/min/1.73m2 . The eGFR declines with age. An eGFR of 60-89 may be normal in some populations, particularly the elderly, for whom the CKD-EPI formula has not been extensively validated. Use of the eGFR is not recommended in the following populations:< br/>
Dorothy viduals with unstable creatinine concentration s, including patients and those with serious co-morbid conditions.<b r/>
Patie nts with extremes in muscle mass or diet.

The data above are obtained from the National Kidney Disease Education Program (NKDEP) which additionally recommends that when the eGFR is used in patients with extremes of body mass index for purposes of drug dosing, the eGFR should be multiplied by the estimated BMI. HEMATOLOGY Hgb 6.9 14.0 - 12 Result MH 18.0 Comment: [facility] Critical Result(s) called to Shae Mccormick at 10/20/2019 07:11 by [place]. Read back OK. HEMATOLOGY POC 316 10/19 MH Activated /2019 [facility] Clotting Time HEMATOLOGY POC 329 10/19 MH Activated /2019 [facility] Clotting Time HEMATOLOGY WBC 2.3 3.7 - 10.4 10/19 MH /2018 [facility] HEMATOLOGY RBC 3.02 4.70 - 10/19 MH 6.10 [facility] HEMATOLOGY Hct 23.5 42.0 - 10/19 MH 54.0 [facility] HEMATOLOGY MCV 77.8 80.0 - 10/19 MH 94.0 [facility] HEMATOLOGY MCH 25.4 27.0 - 10/19 MH 31.0 [facility] HEMATOLOGY MCHC 32.6 32.0 - 10/19 MH 36.0 /2018 [facility] HEMATOLOGY RDW 22.0 11.5 - 10/19 MH 14.5 /2018 [facility] HEMATOLOGY Platelet 237 133 - 450 10/19 MH /2018 [facility] HEMATOLOGY MPV 8.0 7.4 - 10.4 10/19 MH /2018 [facility] HEMATOLOGY Plt Morph Normal Normal 10/19 MH (10/19/19 9:11 AM) /2018 [facility] est HEMATOLOGY Segs 69.9 45.0 - / MH 75.0 /2019 [facility] HEMATOLOGY Lymphocytes 18.6 20.0 - 10/19 MH 40.0 /2019 [facility] HEMATOLOGY Monocytes 7.6 2.0 - 12.0 10/19 MH /2018 [facility] HEMATOLOGY Eosinophils 2.2 0.0 - 4.0 10/19 MH /2018 [facility] HEMATOLOGY Basophils 1.7 0.0 - 1.0 10/19 MH /2018 [facility] HEMATOLOGY Neutrophils 1.6 1.5 - 8.1 10/19 MH # /2019 [facility] HEMATOLOGY Lymphocytes 0.4 1.0 - 5.5 10/19 MH # /2019 [facility] HEMATOLOGY Monocytes # 0.2 0.0 - 0.8 10/19 MH /2018 [facility] HEMATOLOGY Eosinophils 0.1 0.0 - 0.5 10/19 MH # /2019 [facility] HEMATOLOGY Basophils # 0.0 0.0 - 0.2 10/19 MH [facility] HEMATOLOGY Anisocyte 1+ None Seen 10/19 MH *ABN* [facility] (10/19/19 9:11 AM) HEMATOLOGY Microcyte 1+ None Seen 10/19 *ABN* [facility] (10/19/19 9:11 AM) HEMATOLOGY Tear Cell Moderate None Seen 10/19 *ABN* [facility] (10/19/19 9:11 AM) ELECTROLYT POC Sodium 138 135 - 145 10/19 MH ES [facility] ELECTROLYT POC 4.3 3.5 - 5.1 10/19 ES Potassium [facility] ELECTROLYT POC Chloride 112 95 - 109 10/19 ES [facility] ELECTROLYT POC Carbon 26 24 - 32 10/19 ES Dioxide [facility] ELECTROLYT POC BUN 18 7 - 22 10/19 ES [facility] ELECTROLYT POC 1.2 0.5 - 1.4 10/19 ES Creatinine [facility] ELECTROLYT POC Glucose 106 70 - 99 10/19 ES [facility] ELECTROLYT POC Ion Ca 1.19 1.05 - 10/19 ES 1.25 /2018 [facility] ELECTROLYT POC 7.5 14.0 - 10/19 ES Hemoglobin 18.0 [facility] ELECTROLYT POC 22.0 42.0 - 12 ES Hematocrit 54.0 [facility] ELECTROLYT POC AGAP 5.0 10.0 - 10/19 ES 20.0 [facility] Pathology Reports No Data Provided for This Section Diagnostic Reports Report Value Date Source Bone Marrow Bio/Aspr PROCEDURE INFORMATION: 12/16/2019 [place] TOUSSAINT Exam: IR Diagnostic bone biopsies and aspiration s Exam date and time: 12/16/2019 8:45 AM Age: 64 years old Clinical indication: Anemia/done in CT TECHNIQUE: Imaging protocol: Diagnostic bone biopsies and a spirations. The interpreting physician was present and supervised the procedu re. CT guidance was provided. COMPARISON: No relevant prior studies available. TECHNIQUE MORE: [facility] utilizes radiation dose optimization techniques which include one or mor e of the following: Automated exposure control, adjustment of the mA and/or k V according to patient size, use of iterative reconstruction technique. CT RADIATION DOSE DLP: [id number]-CM FINDINGS: Consent: The procedure, risks, benefits and alternatives of the procedure were discussed. Informed consent was obtained. Timeou t was performed prior to the procedure. Level of Sedation: I supervised moderate sedatio n during this procedure. ?The patient was monitored by nurse using automated b lood pressure, EKG and pulse oximetry. ?The moderate sedation record is perma nently stored in the hospital information system. ?The personal supervised mod erate sedation time was 5 minutes. Medications administered:?2 mg of IV Ve rsed and 100 micrograms of IV Fentanyl. Sedation time: The personal supervised moderate sedation time was # minutes. Procedure summary: The patient was placed in the prone position. 1% lidocaine was used for local anesthesia. Using CT guidance, 11-gauge needle was advanced into the posterior left iliac bone. CT imaging confirmed proper positioning of the needle with the tip in the medullary bone. Approximately 1 cc of bone marrow was initially aspirated and given to patho eileen. The presence of spicules was confirmed. 10 cc of bone marrow was aspirated and given to [employer]. # 1 cm long core biopsy sample of bone marrow was obtained utili zing the guide needle. The core biopsy sample was placed in formali n container and appeared grossly adequate. Pressure was applied at the puncture site with adequate h emostasis. No evident complications and the patient had no complaints. IMPRESSION: Technically successful CT guided bone ma rrow biopsy. Final pathology report is pending. Patrick Travis MD On 12/16/2019 11:20:16; [id number] Hand wo contrast MRI PROCEDURE INFORMATION: 10/21/2019 [facility] Exam: MR Right Upper Extremity Other Than Joint Without Contrast; Hand Exam date and time: 10/21/2019 8:43 PM Age: 64 years old Clinical history: Pain; Additional info: Pain an d swelling/erythema, tenderness, and swelling of right index finger distal phalanx and dip. Pls eval for osteomyelitis, septic arthritis, abs cess and non-infectious etiologies etc TECHNIQUE: Imaging protocol: MR of the Right upper extremit y without contrast. Exam focused on the hand. COMPARISON: No relevant prior studies available. FINDINGS: Evaluation for abnormal marrow signal severely l imited by diffuse marrow hyperintensity on fluid sensitive imaging throug hout the hand and wrist which is felt likely related to technical para meters rather than diffuse bone marrow abnormality. No definite bone marrow edema of th e index finger is seen to suggest osteomyelitis. Similarly, evaluation for soft tissue inflammati on limited by diffuse soft tissue hyperintensity on flu id sensitive sequences which is felt likely related to technical parameters. The re is suggestion of distal index finger soft tissue inflammation on the axial sequence series 4. No soft tissue fluid collection is seen. No joint effusion. No tendinopathy or tenosynovitis. Impression: 1. Examination is significantly limited by very poor fat suppression of the marrow and soft tissues on the fluid sensitive s equences, significantly limiting evaluation for osseous and soft tissue inflammation. 2. No definite bone marrow edema or osteomyeliti s. 3. No soft tissue abscess or fluid collection. N o joint effusion or tendon abnormality. Kam Lee MD On 10/21/2019 22:46:45; [id number] Chest 2 views DX PROCEDURE INFORMATION: 10/20/2019 [facility] Exam: XR Chest, 2 Views Exam date and time: 10/20/2019 5:50 PM Age: 64 years old Clinical history: Fever; Additional info: Fever/ eval for pneumonia TECHNIQUE: Imaging protocol: XR of the chest Views: 2 views. PA and Lateral COMPARISON: CR CHEST 2 VIEWS DX 10/06/2019 12:10 PM FINDINGS: Lungs: Lungs are clear. Pleural space: No pleural effusion. No pneumotho rax. Heart/Mediastinum: Cardiomediastinal silhouette is normal. Bones/joints: Bones are normal. IMPRESSION: No acute abnormality. Mohit Bermeo MD On 10/20/2019 18:12:12 ; [id number] Chest 2 views DX PROCEDURE INFORMATION: 10/06/2019 [facility] Exam: XR Chest, 2 Views Exam date and time: 10/06/2019 12:10 PM Age: 64 years old Clinical history: Abnormal f indings on diagnostic imaging of heart and coronary circulation TECHNIQUE: Imaging protocol: XR of the chest Views: 2 views. PA and Lateral COMPARISON: No relevant prior studies available. FINDINGS: Lungs: There are normal lung volumes without con solidation or interstitial opacities. Pleural space: Unremarkable. No pleural effusion . No pneumothorax. Heart/Mediastinum: The heart size is normal. The pulmonary vasculature is normal. The mediastinal contour is normal. The t rachea is midline. Bones/joints: No acute abnormality seen. IMPRESSION: No acute cardiopulmonary findings. Jacques Méndez MD On 10/06/2019 12:19:52; NORBERT- [id number] Consultation Notes No Data Provided for This Section Discharge Summaries No Data Provided for This Section History and Physicals No Data Provided for This Section Vital Signs Vital Sign Value Date Comments Source Height 170.18 cm 12/16/2019 [facility] Weight 79.091 12/16/2019 [facility] BMI Calculated 27.31 12/16/2019 [facility] Systolic (mm Hg) 130 11/21/2019 [facility] Diastolic (mm Hg) 60 11/21/2019 [facility] Heart Rate 77 11/21/2019 [facility] Temperature Oral (F) 98.6 F 11/21/2019 [facility] Height 170.18 cm 11/21/2019 [facility] Weight 78.182 11/21/2019 [facility] BMI Calculated 27 11/21/2019 [facility] Systolic (mm Hg) 120 10/24/2019 [facility] Diastolic (mm Hg) 70 10/24/2019 [facility] Heart Rate 64 10/24/2019 [facility] Respitory Rate 17 10/24/2019 [facility] Temperature Oral (F) 98.3 F 10/24/2019 [facility] Height 170.18 cm 10/24/2019 [facility] Weight 76 10/24/2019 [facility] BMI Calculated 26.24 10/24/2019 [facility] Heart Rate 81 10/22/2019 [facility] Respitory Rate 18 10/22/2019 [facility] Systolic (mm Hg) 126 10/22/2019 [place] [facility] Diastolic (mm Hg) 71 10/22/[address] [place] [address] Heart Rate 76 10/22/2019 [facility] Respitory Rate 16 10/22/2019 [facility] Systolic (mm Hg) 128 10/22/2019 [place] [facility] Diastolic (mm Hg) 74 10/22/[address] [place] [address] Heart Rate 83 10/22/2019 [facility] Respitory Rate 18 10/22/2019 [facility] Systolic (mm Hg) 106 10/22/2019 [place] [facility] Diastolic (mm Hg) 67 10/22/[address] [place] [address] Height 170.18 cm 10/22/2019 [facility] Temperature Oral (F) 100.6 F 10/22/2019 [facility] Temperature Oral (F) 100 F [facility]2019 [facility] Temperature Oral (F) 99.7 F 10/21/2019 [facility] Height 170.18 cm 10/21/2019 [facility] Height 170.18 cm 10/20/2019 [facility] Weight 79.5 10/19/2019 [facility] BMI Calculated 27.45 10/19/2019 [facility] Systolic (mm Hg) 149 10/06/2019 [facility] Diastolic (mm Hg) 77 10/06/2019 [facility] Heart Rate 70 10/06/2019 [facility] Temperature Oral (F) 98.2 F 10/06/2019 [facility] Height 170.18 cm 10/06/2019 [facility] Weight 79.091 10/06/2019 [facility] BMI Calculated 27.31 10/06/2019 [facility] Height 170.18 cm 09/12/2019 [facility] Weight 77.898 09/12/2019 [facility] BMI Calculated 26.9 09/12/2019 [facility] Systolic (mm Hg) 136 09/12/2019 [facility] Diastolic (mm Hg) 74 09/12/2019 [facility] Heart Rate 82 09/12/2019 [facility] Temperature Oral (F) 98.5 F 09/12/2019 [facility] Encounters Location Location Encounter Encounter Reason Attending ADM [place] Stat Source Details Type Number For Provider Date Date Visit [facility] Outside [id number] 09/09 09/11 [facility]iology [facility] Outpatient [id number] Rickie 09/12 [facility] [place] [facility] Out[facility] [id number] Rickie 09/12 09/13 [facility] 0 [facility] [place] [facility] Outpatient [id number] Rickie 10/03 10/04 [place] [facility] [place] Outpatient [id number] Rickie 10/06 [facility] [place] Outpatient [id number] NURSE VISIT 10/06 [place] [facility] [facility] Outpatient [id number] Rickie 10/06 10/07 [facility] 1 [facility] Outpatient [id number] Rickie10/06 M [facility] Radiology 2 [facility] [place] [facility] Inpatient [id number] Rickie 10/21 10/22 [place] 1 [facility] Outpatient [id number] L Cassandra 10/24 [facility] [place] [facility] Phone [id number] 10/24 10/26 Cardiology [facility] Outpatient [id number] L Cassandra 10/24 10/25 [facility] 3 [facility] [place] [facility] Outpatient [id number] Rickie11/21 [facility] Out[facility] [id number] Rickie 11/21 11/22 [facility] Card[facility] 4 [facility] [place] [facility] Phone [id number] 12/15 12/17 Cardiology [facility] Outpatient [id number] Cony 12/16 12/17 [facility] 3 [facility] Phone [id number] 06/08 06/10 Cardiology [facility] Outpatient [id number] Rickie06/19 [facility] 5 [facility] [place] Outpatient [id number] Majrose Sathish 01/09 Act [facility] [place] Procedures Procedure Code Date Perfomer Comments Source Percutaneous [id number] [facility], insertion of metal [place], stent into [facility] coronary artery using fluoroscopic guidance Assessment and Plan No Data Provided for This Section Plan of Care No Data Provided for This Section Social History Social History Date Source Social History TypeResponse 10/06/2019 [facility] Alcohol Current, Type Beer. Frequency: 1-2 times per month. Employment/School Status: Employed. Work/School description: [employer]. Exercise Exercise type: Routine ADL's. [employer], in and out of a ttics..1 Substance Abuse Use: None. Smoking Status Former smoker; Type: Cigarettes; Previou s treatment: Counseling; Ready to change: Yes; Concerns about tobacco use in household: No; Exposure to Tobacco Smoke None; Cigarette Smoking Last 365 Days No; Re g Smoking Cessation Counseling Yes; Started at age: 17.0; 2 entered on: 12/16/19 [id number] quit smoking about 8 months ago . He usually smoked about 1 pack a week. Social History TypeResponse 10/06/2019 [facility] Alcohol Current, Type Beer. Frequency: 1-2 times per month. Employment/School Status: Employed. Work/School description: [employer]. Exercise Exercise type: Routine ADL's. [employer], in and out of a ttics..1 Substance Abuse Use: None. Smoking Status Former smoker; Type: Cigarettes; Previou s treatment: Counseling; Ready to change: Yes; Concerns about tobacco use in household: No; Exposure to Tobacco Smoke None; Cigarette Smoking Last 365 Days Yes; R eg Smoking Cessation Counseling Yes; Started at age: 17.0; 2 entered on: 10/24/19 [id number] quit smoking about 8 months ago . He usually smoked about 1 pack a week. Social History TypeResponse 10/06/2019 [place] Alcohol Current, Type Beer. Frequency: 1-2 times per month. Employment/School Status: Employed. Work/School description: [employer]. Exercise Exercise type: Routine ADL's. [employer], in and out of a ttics..1 Substance Abuse Use: None. Smoking Status Former smoker; Type: Cigarettes; Previou s treatment: Counseling; Ready to change: Yes; Concerns about tobacco use in household: No; Exposure to Tobacco Smoke None; Cigarette Smoking Last 365 Days No; Re g Smoking Cessation Counseling Yes; Started at age: 17.0; 2 entered on: 12/16/19 [id number] quit smoking about 8 months ago . He usually smoked about 1 pack a week. Social History TypeResponse 09/12/2019 [facility] Alcohol Current, Type Beer. Frequency: 1-2 times per month. Employment/School Status: Employed. Work/School description: [employer]. Exercise 1 Substance Abuse Use: None. Smoking Status Former smoker; Type: Cigarettes; Exposur e to Tobacco Smoke None; Cigarette Smoking Last 365 Days No; Reg Smoking Cessation Counseling No; Started at age: 17.0; 2 entered on: 09/12/19 [id number] quit smoking about 8 months ago . He usually smoked about 1 pack a week. Family History No Data Provided for This Section Advance Directives No Data Provided for This Section Functional Status No Data Provided for This Section
--- OUTSIDE RECORDS SUMMARY | 2020-07-03 08:57 | XMS REPORT | Continuity of Care Document ---
:1955 Author Organization [facility] t Address [address] [place] [address] Dr. Anderson[address] [place] [address] Care Team Providers Name Role Phone MARKY MAGALLON Primary Care Physician Unavailable RICARDO MERA Attending Clinician Unavailable MATT CRUMP Attending Clinician Unavailable SHERITA Attending Clinician Unavailable LILIAN Attending Clinician Unavailable Karley MUÑOZ Attending Clinician Unavailable Karley Muñoz MD Attending Clinician Lilian MACDONALD Attending Clinician Josias FIGUEROA Attending Clinician JOSIAS Attending Clinician Unavailable Sherita FIGUEROA Attending Clinician Blanche VELASCO, B Attending Clinician Unavailable Emanuel VELASCO Attending Clinician Unavailable Sher VELASCO Attending Clinician Unavailable Josesito VELASCO MSN Attending Clinician Unavailable Ashley VELASCO, W Attending Clinician Unavailable Eric TONY Attending Clinician Miles MANAGER BANQUET, S Attending Clinician Unavailable TALHA Attending Clinician Unavailable Talha DINING CHAIR SEAT CUSHION TRIMMER Attending Clinician Phi DINING CHAIR SEAT CUSHION TRIMMER Attending Clinician TIERRA DAVIS Attending Clinician Unavailable Tierra Davis MD Attending Clinician Chavez FIGUEROA Attending Clinician Unavailable Audie MACDONALD Attending Clinician Kenya VELASCO, M Attending Clinician Unavailable Mickey VELASCO Attending Clinician Unavailable Saul Rock Attending Clinician Florentino RN, E Attending Clinician Unavailable Patrick Fajardo MD Attending Clinician Phi VELASCO Attending Clinician Sydni FIGUEROA Attending Clinician Torrey VELASCO Attending Clinician Unavailable María Carlos Attending Clinician Unavailable Ariela Rahman Attending Clinician Unavailable Shawn Marroquin Attending Clinician Mazejason Attending Clinician Ammy Borrego Attending Clinician VISIT, [facility] Attending Clinician Unavailable SHERITA Admitting Clinician Unavailable Ammy Borrego Admitting Clinician Payers Payer Name Policy Type Policy Number Effective Date Expiration Date Shaun holcomb [facility] [id number] 2020 00:00:00 [employer] [facility] [id number] 2016 00:00:00 Problems Condition Condition Condition Status Onset Resolution Last Treating Co mments Source Name Details Category Date Date Treatment Clinician Date Acute Acute Disease Active 2019-0 pyelonephr pyelonephr 06-14 An derso itis itis 00:00: n 00 Hyperkalem Hyperkalem Disease Active 2020-0 M D ia ia 17 Anderso 00:00: n 00 Other Other Disease Active 2020-0 acute acute 6-16 Anderso kidney kidney 00:00: n failure failure 00 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 01-19 Anderso 00:00: n 00 Splenomega Splenomega Disease Active 2020-0 M D ly ly 01-19 Anderso 00:00: n 00 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89, Diagnosis Active 2018-112019-10-03 Ms moria R06.02, 0-28 08:43:00 l I10 R07.89, 00:00: Matheus R06.02, 00 I10 Active 09/12/2019 [place] Encounter Problem 2019-10-24 Me moria for 22:43:09 l routine [place] child Encounter health for examinatio routine n without child abnormal health findings examinatio n without abnormal findings 10/24/2019 [facility] Anemia Problem Active 2020-06-11 Memor ia (disorder) 22:30:43 l Anemia Matheus (disorder) Active Problem 06/11/2020 [facility] At risk of Problem Active 2020-06-11 M emoria coronary 22:30:43 l heart At risk Matheus disease of (finding) coronary heart disease (finding) Active Problem 06/11/2020 [facility] Benign Problem Active 2020-06-11 Memor ia hypertensi 22:30:43 l on Benign Matheus (disorder) hypertensi on (disorder) Active Problem 06/11/2020 [facility] Gouty Problem Active 2020-06-11 Memor ia arthropath 22:30:43 l y Gouty [place] (disorder) arthropath y (disorder) Active Problem 06/11/2020 [facility] Leukopenia Problem Active 2020-06-11 M emoria (disorder) 22:30:43 l [place] Leukopenia (disorder) Active Problem 06/11/2020 [facility] ABNORMAL Diagnosis Active 2019-10-21 M emoria FINDINGS 14:31:00 l ON DX ABNORMAL Brian n IMAGING OF FINDINGS HEART ON DX IMAGING OF HEART Active [place] ATHSCL Diagnosis Active 2019-10-21 Mem oria HEART 14:31:00 l DISEASE OF ATHSCL Herm lia [place] HEART CORONARY DISEASE OF [place] CORONARY Active [facility] ENCNTR FOR Diagnosis Active 2019-10-21 Memoria ROUTINE 14:31:00 l CHILD ENCNTR [facility] FOR EXAM W/O ROUTINE CHILD HEALTH EXAM W/O Active [facility] Allergies, Adverse Reactions, Alerts Allergy Allergy Status Severity Reaction(s) Onset Inactive Treating Comm ents Source Name Type Date Date Clinician No Known No Known Active Memori a Medicati Medicati l on on Matheus Allergie Allergsuzanne s s Social History Social Habit Start Date Stop Date Quantity Comments Source History of tobacco Cigarette Smoker MD [place] use Sex Assigned At M MD Barros on Exposure to Not sure MD [place] SARS-CoV-2 (event) Cigarettes smoked 2020-06-14 2020-06-14 MD Yeison posada current (pack per 00:00:00 00:00:00 day) - Reported Cigarette 2020-06-14 2020-06-14 MD [place] pack-years 00:00:00 00:00:00 Tobacco use and 2020-06-14 2020-06-14 Never used MD Barros on exposure 00:00:00 00:00:00 Alcohol intake 2020-06-14 2020-06-14 Ex-drinker MD Julia burnham 00:00:00 00:00:00 (finding) Tobacco Comment 2020-01-19 2020-01-19 Have not smoke in MD [place] 00:00:00 00:00:00 years Social History 2019-09-12 2019-09-12 [facility] Shae rios 14:04:22 14:04:22 Smoking Status Start Date Stop Date Source Former smoker 2020-06-14 00:00:00 2020-06-14 00:00:00 MD Ortiz son Medications Ordered Filled Start Stop Current Ordering Indication Dosage Frequency Signature Comments Components Source Medication Medication Date Date Medication? Clinician (SIG) Name Name aspirin 81 2020-0 Yes 81mg Take 81 mg M D mg EC 7-30 by mouth Anderso tablet 18:06: daily. n 33 ticagrelor 2020-0 Yes 90mg Take 90 mg M D (BRILINTA) 7-30 by mouth Angel so 90 mg 18:06: twice n tablet 33 daily. cetirizine 2019- Yes 10mg Take 10 mg M D (ZyrTEC) 10 7-30 by mouth Yeison rso mg tablet 18:06: daily. n 33 ferrous 2020-0 Yes 325mg Take 325 MD sulfate 325 7-30 mg by Anderso mg (65 mg 18:06: mouth n elemental 33 daily. iron per tablet) tablet Ticagrelor Yes = 1 tab, Mem oria 90 MG Oral 7-24 PO, Q12H, l Tablet 16:37: # 60 tab, Brian n [Brilinta] 00 6 Refill(s), Pharmacy: [facility] [id number], 170.18, cm, 12/16/19 8:12:00 VALET, Height, 79.091, kg, 12/16/19 8:12:00 VALET, Weight ondansetron 2019- Yes 1{tbl} Take 1 MD (ZOFRAN) 4 7-15 tablet by Yeison rso mg tablet 00:00: mouth n 00 every 6 (six) hours as needed. valACYclovi 2019- No Myelofibros 500mg Take 1 MD r (VALTREX) 05-1127 is tablet Angel so 500 mg 00:00: 04:59 (500 mg) n tablet 00 :00 by mouth daily for 30 days. Start after completion of the 1000mg BID dose ferrous 2019-2019- No 325mg Take 325 MD sulfate 325 6-20 06-20 mg by Papo o mg (65 mg 21:58: 00:00 mouth n elemental 25 :00 daily. iron per tablet) tablet sulfamethox 2019- No 1{tbl} Take 1 M D azole-trime -20 06-20 tablet by An derso thoprim 21:58: 00:00 mouth n (BACTRIM 25 :00 twice DS) 800 daily. mg-160 mg per tablet sodium 2019- No Myelofibros Inject 10 MD chloride 05-05-30 is mL (1 Anderso (NS) 0.9% 00:00: 00:00 syringe) n flush 00 :00 into each syringe 10 lumen of mL central venous catheter daily as directed. allopurinol 2019- No Myelofibros 150mg Take 0.5 MD (ZYLOPRIM) 05-04 07-30 is tablets Angel so 300 mg 00:00: 00:00 (150 mg) n tablet 00 :00 by mouth daily. ertapenem 2019- No Myelofibros [...] 12 (twelve) hours for 7 days. ertapenem 2019-2019- No Myelofibros 1000mg Infuse MD (INVanz) IV 05-04 is 1,000 mg And erso prescriptio 00:00: 00:00 intravenou n n (Home 00 :00 sly daily. Use) danazol 2019-2019- No Myelofibros 200mg Take 1 MD (DANOCRINE) 04-03 07-30 is capsule Yeison rso 200 mg 00:00: 00:00 (200 mg) n capsule 00 :00 by mouth twice daily. ciprofloxac 2019- No Myelofibros 500mg Take 1 MD in HCl 04-03 is tablet Anderso (CIPRO) 500 00:00: 00:00 (500 mg) n mg tablet 00 :00 by mouth twice daily for 14 days. loratadine 2019- No 10mg Take 10 mg MD (CLARITIN) 02-13-31 by mouth Yeison rso 10 mg 13:41: 00:00 daily. n tablet 42 :00 JAKAFI 10 2019-0 Yes Myelofibros 10mg Take 1 MD mg tablet 3-13 is tablet (10 Yeison rso 00:00: mg) by n 00 mouth twice daily. atorvastati 2019-0 Yes 1{tbl} Take 1 MD n (LIPITOR) 3-02 tablet by And erso 40 mg 00:00: mouth n tablet 00 daily. lisinopril 2019-2019- No 1{tbl} Take 1 MD (PRINIVIL,Z 3- 06-20 tablet by An derso ESTRIL) 20 00:00: 00:00 mouth n mg tablet 00 :00 daily. allopurinol 2019-2019- No 1{tbl} Take 1 M D (ZYLOPRIM) 3-01 06-19 tablet by And erso 300 mg 00:00: 00:00 mouth n tablet 00 :00 daily. metoprolol 2020-0 Yes 1{tbl} Take 1 MD tartrate 2-08 tablet by Papo scruggs (LOPRESSOR) 00:00: mouth n 25 mg 00 daily. tablet Hold if SBP<140. ticagrelor 2020-0 Yes 90 mg, PO, M emoria 90 mg oral 1-06 Q12H, # 60 l tablet 19:09: tab, 5 [place] 22 Refill(s), Pharmacy: [facility] metoprolol 2019-0 Yes 25 mg = 1 Me moria tartrate 25 1-06 tab, PO, l mg oral 19:08: BID, # 60 Lacy nn tablet 07 tab, 5 Refill(s), Pharmacy: [facility] lisinopril 0 Yes 20 mg = 1 Me moria 20 mg oral -06 tab, PO, l tablet 19:07: Daily, # [place] 31 30 tab, 5 Refill(s), Pharmacy: [facility] lisinopril 2019- No 20 mg = 1 Me moria 20 mg oral 1-06 tab, PO, l tablet 19:05: Daily, # [place] 31 90 tab, 0 Refill(s) atorvastati 2019-0 Yes 40 mg, PO, Memoria n 40 mg 1-06 Bedtime, # l oral tablet 19:01: 40 tab, 5 H ermann 57 Refill(s), Pharmacy: [facility] metoprolol 2018-11 Yes 12.5 mg = Me moria tartrate 25 2-07 0.5 tab, l mg oral 19:07: PO, BID, # Herm lia tablet 00 60 tab, 0 Refill(s), Pharmacy: [facility] Colchicine 2018-11 Yes 0.6 mg = 1 M emoria 0.6 MG Oral 2-07 cap, PO, l Capsule 19:01: Daily, # Brian n 00 30 tab, 0 Refill(s), Pharmacy: [facility] allopurinol 2018-11 Yes 300 mg = 1 Memoria 300 mg oral 2-07 tab, PO, l tablet 19:01: Daily, # [place] 00 90 tab, 1 Refill(s), Pharmacy: [facility] [id number] lisinopril 2018-11 Yes 20 mg = 1 Me moria 20 mg oral 2-07 tab, PO, l tablet 19:01: Daily, # 90 tab, 0 Refill(s), Pharmacy: [facility] [id number] Allopurinol 2018-11 No Notes: Hernandez sammy 2-07 (Same as: l 15:00: Zyloprim) Colchicine 2018-11 No 0.6 mg, 1 Me moria 0.6 MG Oral 2-07 tab, l Tablet 03:00: Route: PO, Lacy nn [Colcrys] 00 Drug form: TAB, BID, Dosing Weight 79.5, kg, Start date: 10/21/19 21:00:00 VALET, Duration: 30 day, Stop date: 11/20/19 17:00:00 VALET, 0 colchicine 2018-11 2020- No 1{capsu Take 1 M D 0.6 mg cap 12-23 06-20 le} capsule by An derso 00:00: 00:00 mouth n 00 :00 daily. Vancomycin 2018-11 No 2001 mg: Me moria 2-05 infuse l 22:10: over 2.5 hours For adult patients only: Round to nearest 250 mg per Medical Staff approval MEDICATION WASTE Product Size: 1000 mg Product Wasted: ___ mg Rocephin + 2018-11 No Notes: Memor ia sterile 2-05 (Same As: l water 20 mL 22:06: Rocephin). Use with 100 mL NS and infuse over 30 min MEDICATION WASTE Product Size: 2000 mg Product Wasted: ___ mg ferrous 2018-11 No Notes: Memoria sulfate 2-05 Give with l 15:00: food. iron elemental [id number] as ferrous sulfate Dose=___mg elemental iron Hydrochloro 2018-11 No 1 tab, Hernandez sammy thiazide 2-05 Route: PO, l 12.5 MG / 15:00: Drug Form: Tomi brown Lisinopril 00 TAB, 20 MG Oral Dosing Tablet Weight 79.5, kg, Daily, Start date: 10/20/19 9:00:00 VALET, Duration: 30 day, Stop date: 11/18/19 9:00:00 VALET Loratadine 2018-11 No 10 mg, 1 Mem oria 10 MG Oral 2-05 tab, l Tablet 15:00: Route: PO, Lacy nn [Claritin] 00 Drug form: TAB, Daily, Dosing Weight 79.5, kg, Start date: 10/20/19 9:00:00 VALET, Duration: 30 day, Stop date: 11/18/19 9:00:00 VALET Aspirin 81 2018-11 No Notes: Do Me moria MG Enteric 2-05 not crush l Coated 15:00: or chew. Matheus Tablet 00 (Same As: Ecotrin) lisinopril 2018-11 No Notes: Memor ia 2-05 (Same as: l 15:00: Prinivil, Matheus 00 Zestril) hydrochloro 2018-11 No Notes: Hernandez sammy thiazide 2-05 (Same as: l 15:00: Hydrodiuri Matheus 00 l). Give with food. cetirizine 2018-11 No Notes: Memor ia 2-05 (Same As: l 12:30: Zyrtec) Matheus atorvastati 2018-11 No Notes: Hernandez sammy n 2-05 (Same as: l 03:00: Lipitor) Ticagrelor 2018-11 No Notes: Memor ia 2-05 (Same as: l 03:00: Brilinta) BD Normal 2018-11 No Notes: Memori a Saline 2-04 Same as: l Flush 21:50: BD [place] 00 Posiflush Sterile Sodium 2018-11 No 250 mL, Memoria Chloride 2-04 Route: l 0.9% IV 21:50: IVPB, [place] Start date: 10/19/19 15:50:00 VALET, Duration: 30 day, Stop date: 11/18/19 15:49:00 VALET, PRN Line Flush, 0 Aspirin 81 2018-11 Yes 81 mg, PO, M emoria MG Enteric 2-04 Daily, 0 l Coated 19:49: Refill(s) Brian n Tablet 00 atorvastati 2018-11 Yes 40 mg, PO, Memoria n 40 mg 2-04 Bedtime, # l oral tablet 19:49: 40 tab, 0 H ermann Refill(s), Pharmacy: [facility] 1405 ticagrelor 2018-11 Yes 90 mg, PO, M emoria 90 mg oral 2-04 Q12H, # 60 l tablet 19:49: tab, 0 [place] 00 Refill(s), Pharmacy: [facility] 1405 Sodium 2018-11 No 750 mL, Memoria Chloride 2-04 Rate: 75 l 0.9% IV 750 19:46: ml/hr, Herm lia mL 00 Infuse over: 10 hr, Route: IV, Dosing Weight 79.5 kg, Total Volume: 750, Start date: 10/19/19 13:46:00 VALET, Duration: 10 hr, Stop date: 10/19/19 23:45:00 VALET, 1.96, m2, 0 Acetaminoph 2018-11 No Notes: Do M emoria en 2-04 not exceed l 19:46: 4 gm/day. Matheus 00 (Same as: Tylenol) Acetaminoph 2018-11 No Notes: Hernandez sammy en 325 MG / 2-04 (Same as: l Hydrocodone 19:46: Export Lacy nn Bitartrate 00 325/5) Do 5 MG Oral not exceed Tablet 4gm/day of acetaminop hen. Ondansetron 2018-11 No Notes: Hernandez sammy 2-04 (Same as: l 19:46: Zofran) [place] 00 MEDICATION WASTE Product Size: 4 mg Product Wasted: ___ mg Sodium 2018-11 No 1,000 mL, Memori a Chloride 2-04 Rate: 100 l 0.9% IV 14:13: ml/hr, Matheus 1,000 mL 00 Infuse over: 10 hr, Route: IV, Dosing Weight 79.091 kg, Total Volume: 1,000, Start date: 10/19/19 8:13:00 VALET, Duration: 30 day, Stop date: 11/18/19 8:12:00 VALET, 1.95, m2, 0 Aspirin 325 2018-11 Yes 325 mg = 1 Memoria MG Oral 1-21 tab, PO, l Tablet 16:21: Q4H, PRN Matheus 00 Headache 6-10, 0 Refill(s) Ranitidine 2018-11 Yes 150 mg = 1 M emoria 150 MG Oral 1-21 cap, PO, l Capsule 16:20: Daily, 0 Brian n 00 Refill(s) Hydrochloro 2018-11 Yes 1 tab, PO, Memoria thiazide 0-28 Daily l 12.5 MG / 14:28: Lisinopril 00 20 MG Oral Tablet Ranitidine 2018-11 Yes 2 mg/kg, Mem oria 0-28 PO, PRN l 14:28: Zantac 2018-11 No 2 mg/kg, Memoria 0-28 PO, PRN l 14:27: Matheus 00 ferrous 2018-11 Yes 325 mg = 1 Hernandez sammy sulfate 325 0-28 tab, PO, l mg oral 14:25: Daily Matheus enteric 00 coated tablet Loratadine 2018-11 Yes 10 mg = 1 Me moria 10 MG Oral 0-28 tab, PO, l Tablet 14:25: Daily Matheus [Claritin] 00 allopurinol allopurinol No allopurino [place] 300 mg [...] Source Name Name influenza, influenza, 2019-09-05 Completed [place] injectable, injectable, 00:00:00 [facility] quadrivalent quadrivalent Vital Signs Vital Name Observation Time Observation Value Comments Source WEIGHT 2020-06-14 11:28:20 74.2 kg WEIGHT 2020-06-14 11:28:20 74.2 kg WEIGHT 2020-06-14 07:36:18 74 kg WEIGHT 2020-06-14 07:36:18 74 kg WEIGHT 2020-05-10 00:00:00 77.2 kg WEIGHT 2020-05-10 00:00:00 77.2 kg BP Diastolic 2020-04-23 00:00:00 63 mm[Hg] [facility] Height 2020-04-23 00:00:00 67 [in_i] [facility] BMI (Body Mass 2020-04-23 00:00:00 26.8 kg/m2 [facility] [employer] BP Systolic 2020-04-23 00:00:00 115 mm[Hg] [facility] Body Weight 2020-04-23 00:00:00 2736 [oz_av] [facility] BP Diastolic 2019-11-28 00:00:00 70 mm[Hg] [facility] Height 2019-11-28 00:00:00 67 [in_i] [facility] BMI (Body Mass 2019-11-28 00:00:00 28.3 kg/m2 [facility] [employer] [facility] Group BP Systolic 2019-11-28 00:00:00 123 mm[Hg] [facility] Body Weight 2019-11-28 00:00:00 2888 [oz_av] [facility] BP Diastolic 2019-09-08 00:00:00 66 mm[Hg] [facility] Height 2019-09-08 00:00:00 67 [in_i] [facility] BMI (Body Mass 2019-09-08 00:00:00 27 kg/m2 [facility] [employer] BP Systolic 2019-09-08 00:00:00 135 mm[Hg] [facility] Body Weight 2019-09-08 00:00:00 172.2 [lb_av] [facility] BP Diastolic 2018-12-24 00:00:00 70 mm[Hg] [facility] Height 2018-12-24 00:00:00 67 [in_i] [facility] BMI (Body Mass 2018-12-24 00:00:00 28 kg/m2 [facility] [employer] [facility] BP Systolic 2018-12-24 00:00:00 142 mm[Hg] [facility] Body Weight 2018-12-24 00:00:00 178.5 [lb_av] [facility] BP Diastolic 2018-12-01 00:00:00 73 mm[Hg] [facility] Height 2018-12-01 00:00:00 67 [in_i] [facility] BMI (Body Mass 2018-12-01 00:00:00 28 kg/m2 [facility] [employer] [facility] BP Systolic 2018-12-01 00:00:00 141 mm[Hg] [facility] Body Weight 2018-12-01 00:00:00 2856 [oz_av] [facility] Systolic blood 2020-06-14 17:40:00 132 mm[Hg] pressure Diastolic blood 2020-06-14 17:40:00 65 mm[Hg] MD Madelyn rothson pressure Heart rate 2020-06-14 17:40:00 75 /min MD Ortiz son Body temperature 2020-06-14 17:40:00 36.72 Jovita MD Genesis marshallon Respiratory rate 2020-06-14 17:40:00 18 /min MD Genesis marshallon Body weight 2020-06-14 17:40:00 74.2 kg MD Ortiz son BMI 2020-06-14 17:40:00 26.86 kg/m2 MD Angel slade Oxygen saturation in 2020-06-14 17:40:00 99 /min MD [place] Arterial blood by Pulse oximetry Body height 2020-05-01 19:09:37 166.2 cm MD Ortiz son Height 2019-12-16 14:12:00 170.18 cm [facility] [place] Weight 2019-12-16 14:12:00 [facility] BMI Calculated 2019-12-16 14:12:00 Memori al [place] Systolic (mm Hg) 2019-11-21 18:31:00 Hernandez rial [place] Diastolic (mm Hg) 2019-11-21 18:31:00 Mem orial [place] Heart Rate 2019-11-21 18:31:00 [facility] Temperature Oral (F) 2019-11-21 18:31:00 98.6 F [facility] [place] Height 2019-11-21 18:31:00 170.18 cm [facility] [place] Weight 2019-11-21 18:31:00 [facility] [place] BMI Calculated 2019-11-21 18:31:00 Memori al [place] Systolic (mm Hg) 2019-10-24 21:39:00 Hernandez rial [place] Diastolic (mm Hg) 2019-10-24 21:39:00 Mem orial [place] Heart Rate 2019-10-24 21:39:00 [facility] [place] Respitory Rate 2019-10-24 21:39:00 Memori al [place] Temperature Oral (F) 2019-10-24 21:39:00 98.3 F [facility] [place] Height 2019-10-24 21:39:00 170.18 cm [facility] [place] Weight 2019-10-24 21:39:00 [facility] [place] BMI Calculated 2019-10-24 21:39:00 Memori al [place] Heart Rate 2019-10-22 18:00:00 [facility] [place] Respitory Rate 2019-10-22 18:00:00 Memori al [place] Systolic (mm Hg) 2019-10-22 18:00:00 Hernandez rial [place] Diastolic (mm Hg) 2019-10-22 18:00:00 Mem orial [place] Heart Rate 2019-10-22 14:00:00 [facility] [place] Respitory Rate 2019-10-22 14:00:00 Memori al [place] Systolic (mm Hg) 2019-10-22 14:00:00 Hernandez rial [place] Diastolic (mm Hg) 2019-10-22 14:00:00 Mem orial [place] Heart Rate 2019-10-22 10:21:00 [facility] [place] Respitory Rate 2019-10-22 10:21:00 Memori al [place] Systolic (mm Hg) 2019-10-22 10:21:00 Hernandez rial [place] Diastolic (mm Hg) 2019-10-22 10:21:00 Mem orial [place] Height 2019-10-22 10:21:00 170.18 cm [facility] [place] Temperature Oral (F) 2019-10-22 01:20:00 100.6 F [facility] [place] Temperature Oral (F) 2019-10-21 18:00:00 100 F [facility] [place] Temperature Oral (F) 2019-10-21 14:00:00 99.7 F [facility] [place] Height 2019-10-21 09:38:00 170.18 cm [facility] [place] Height 2019-10-20 09:40:00 170.18 cm [facility] [place] Weight 2019-10-19 14:15:00 [facility] [place] BMI Calculated 2019-10-19 14:15:00 Memori al [place] Systolic (mm Hg) 2019-10-06 16:16:00 Hernandez rial [place] Diastolic (mm Hg) 2019-10-06 16:16:00 Mem orial [place] Heart Rate 2019-10-06 16:16:00 [facility] [place] Temperature Oral (F) 2019-10-06 16:16:00 98.2 F [facility] [place] Height 2019-10-06 16:16:00 170.18 cm [facility] [place] Weight 2019-10-06 16:16:00 [facility] [place] BMI Calculated 2019-10-06 16:16:00 Memori al [place] Height 2019-09-12 13:59:00 170.18 cm [facility] [place] Weight 2019-09-12 13:59:00 [facility] [place] BMI Calculated 2019-09-12 13:59:00 Memori al [place] Systolic (mm Hg) 2019-09-12 13:59:00 Hernandez rial [place] Diastolic (mm Hg) 2019-09-12 13:59:00 Mem orial [place] Heart Rate 2019-09-12 13:59:00 [facility] [place] Temperature Oral (F) 2019-09-12 13:59:00 98.5 F [facility] [place] Procedures Procedure Date / Time Performing Clinician Source Performed TOTAL PROTEIN 2020-06-14 12:19:00 Katina Quintana MD ALBUMIN LEVEL 2020-06-14 12:19:00 Katina Quintana MD CALCIUM LEVEL TOTAL 2020-06-14 12:19:00 Katina Quintana MD PHOSPHORUS LEVEL 2020-06-14 12:19:00 Katina Quintana MD GLUCOSE, RANDOM 2020-06-14 12:19:00 Katina Quintana MD BLOOD UREA NITROGEN 2020-06-14 12:19:00 Katina Quintana MD SERUM CREATININE 2020-06-14 12:19:00 Katina Quintana MD URIC ACID 2020-06-14 12:19:00 Katina Quintana MD FRACTIONATED BILIRUBIN 2020-06-14 12:19:00 Katina Quintana MDson ALKALINE PHOSPHATASE 2020-06-14 12:19:00 Katina Quintana MDon LACTATE DEHYDROGENASE 2020-06-14 12:19:00 Katina Quintana ALANINE AMINOTRANSFERASE 2020-06-14 12:19:00 Katina Quintana MD ELECTROLYTE PANEL 2020-06-14 12:19:00 Katina Quintana MD MAGNESIUM LEVEL 2020-06-14 12:19:00 Katina Quintana MD ASPARTATE AMINOTRANSFERASE 2020-06-14 12:19:00 Katina Quintana COMPLETE BLOOD COUNT W/ 2020-06-14 12:19:00 Katina Quintana MD nderson DIFFERENTIAL RESEARCH PROTOCOL [id number] 2020-06-14 12:19:00 Katina Quintana MD SERUM CREATININE 2020-06-14 12:19:00 Katina Quintana MD .GLOMERULAR FILTRATION RATE 2020-06-14 12:19:00 Katina Quintana MD Results CBC 2020-06-14 12:19:00 Katina Quintana MD MANUAL DIFFERENTIAL 2020-06-14 12:19:00 Katina Quintana MD Angel son ABORH 2020-06-14 12:19:00 Katina Quintana MD ANTIBODY SCREEN 2020-06-14 12:19:00 Katina Quintana MD TMP INTERPRETATION ANTIBODY 2020-06-14 12:19:00 Katina Quintana MD SCREEN NEGATIVE CLOT EXPIRATION DATE 2020-06-14 12:19:00 Katina Quintana MD rson TYPE AND SCREEN 2020-05-10 13:31:00 Jennifer Palencia MD COMPLETE BLOOD COUNT W/ 2020-05-10 13:31:00 Jennifer Palencia MD DIFFERENTIAL TOTAL PROTEIN 2020-05-10 13:31:00 Jennifer Palencia MD ALBUMIN LEVEL 2020-05-10 13:31:00 Jennifer Palencia MD Andgibsono n CALCIUM LEVEL TOTAL 2020-05-10 13:31:00 Jennifer Palencia MD And erson PHOSPHORUS LEVEL 2020-05-10 13:31:00 Jennifer Palencia MD Papo on GLUCOSE, RANDOM 2020-05-10 13:31:00 Jennifer Palencia MD Andgibsono n BLOOD UREA NITROGEN 2020-05-10 13:31:00 Jennifer Palencia MD And erson SERUM CREATININE 2020-05-10 13:31:00 Jennifer Palencia MD Papo on URIC ACID 2020-05-10 13:31:00 Jennifer Palencia MD [facility] FRACTIONATED BILIRUBIN 2020-05-10 13:31:00 Jennifer Palencia MD ALKALINE PHOSPHATASE 2020-05-10 13:31:00 Jennifer Palencia MD LACTATE DEHYDROGENASE 2020-05-10 13:31:00 Jennifer Palencia MD nderson ALANINE AMINOTRANSFERASE 2020-05-10 13:31:00 Jennifer Palencia ELECTROLYTE PANEL 2020-05-10 13:31:00 Jennifer Palencia MD Angel son MAGNESIUM LEVEL 2020-05-10 13:31:00 Jennifer Palencia MD Andbismark n ABORH 2020-05-10 13:31:00 Jennifer Palencia MD [facility] ANTIBODY SCREEN 2020-05-10 13:31:00 Jennifer Palencia MD [facility] Results CBC 2020-05-10 13:31:00 Jennifer Palencia MD [facility] MANUAL DIFFERENTIAL 2020-05-10 13:31:00 Jennifer Palencia MD And erson SERUM CREATININE 2020-05-10 13:31:00 Jennifer Palencia MD Papo on .GLOMERULAR FILTRATION RATE 2020-05-10 13:31:00 Luz Palencia MD TMP INTERPRETATION ANTIBODY 2020-05-10 13:31:00 Luz Palencia MD SCREEN NEGATIVE CLOT EXPIRATION DATE 2020-05-10 13:31:00 Jennifer Palencia MD COMPLETE BLOOD COUNT W/ 2020-05-05 08:20:00 Marky Magallon MD DIFFERENTIAL GLUCOSE, RANDOM 2020-05-05 08:20:00 Marky Magallon MD CALCIUM LEVEL TOTAL 2020-05-05 08:20:00 Marky Magallon MD And erson BLOOD UREA NITROGEN 2020-05-05 08:20:00 Marky Magallon MD And erson SERUM CREATININE 2020-05-05 08:20:00 Marky Magallon MD Papo on POTASSIUM LEVEL 2020-05-05 08:20:00 Marky Magallon MD n MAGNESIUM LEVEL 2020-05-05 08:20:00 Marky Magallon MD [facility] CHLORIDE LEVEL 2020-05-05 08:20:00 Marky Magallon MD [facility] CARBON DIOXIDE LEVEL 2020-05-05 08:20:00 Marky Magallon MD TOTAL PROTEIN 2020-05-05 08:20:00 Marky Magallon MD Andbismark n ALBUMIN LEVEL 2020-05-05 08:20:00 Marky Magallon MD Andbismark n PHOSPHORUS LEVEL 2020-05-05 08:20:00 Marky Magallon MD Papo on FRACTIONATED BILIRUBIN 2020-05-05 08:20:00 Marky Magallon MD ALKALINE PHOSPHATASE 2020-05-05 08:20:00 Marky Magallon MD ALANINE AMINOTRANSFERASE 2020-05-05 08:20:00 Marky Magallon URIC ACID 2020-05-05 08:20:00 Marky Magallon MD Andbismark n LACTATE DEHYDROGENASE 2020-05-05 08:20:00 Marky Magallon MDrstaiwo PROTHROMBIN TIME 2020-05-05 08:20:00 Marky Magallon MD Papo on PARTIAL THROMBOPLASTIN TIME 2020-05-05 08:20:00 Adelaida Magallon MD D DIMER 2020-05-05 08:20:00 Marky Magallon MD [facility] n FIBRINOGEN ACTIVITY 2020-05-05 08:20:00 Marky Magallon MD And erson BASIC METABOLIC PANEL, 2020-05-05 08:20:00 Ezequiel Bhat MD CALCIUM IONIZED TYPE AND SCREEN 2020-05-05 08:20:00 MD Zain Lo Wesley ABORH 2020-05-05 08:20:00 MD Zain Lo ANTIBODY SCREEN 2020-05-05 08:20:00 MD Zain Lo BLOOD UREA NITROGEN 2020-05-05 08:20:00 Florencio Cabrera MD Angel son ELECTROLYTE PANEL 2020-05-05 08:20:00 Florencio Cabrera MD CALCIUM IONIZED, VENOUS 2020-05-05 08:20:00 Florencio Cabrera MD nderson Results CBC 2020-05-05 08:20:00 Marky Magallon MD MANUAL DIFFERENTIAL 2020-05-05 08:20:00 Marky Magallon MD And erson SERUM CREATININE 2020-05-05 08:20:00 Marky Magallon MD on .GLOMERULAR FILTRATION RATE 2020-05-05 08:20:00 Adelaida Magallon MD ANION GAP 2020-05-05 08:20:00 Marky Magallon MD n CLOT EXPIRATION DATE 2020-05-05 08:20:00 Tierra Davis MD And alex Olson TMP INTERPRETATION ANTIBODY 2020-05-05 08:20:00 MD Zain Lo SCREEN NEGATIVE Wesley TRANSFUSE RED BLOOD CELLS 2020-05-04 23:39:17 Barron Lo BASIC METABOLIC PANEL, 2020-05-04 23:22:00 Ezequiel Bhat MD CALCIUM IONIZED GLUCOSE LEVEL 2020-05-04 23:22:00 Florencio Cabrera MD BLOOD UREA NITROGEN 2020-05-04 23:22:00 Florencio Cabrera MD Angel son ELECTROLYTE PANEL 2020-05-04 23:22:00 Florencio Cabrera MD SERUM CREATININE 2020-05-04 23:22:00 Florencio Cabrera MD .GLOMERULAR FILTRATION RATE 2020-05-04 23:22:00 Florencio Cabrera MD CALCIUM IONIZED, VENOUS 2020-05-04 23:22:00 Florencio Cabrera MD nderson XR CHEST 2 VW 2020-05-04 19:35:00 Jennifer Palencia MD PREPARE RBC 2020-05-04 10:35:00 MD Zain Lo Wesley COMPLETE BLOOD COUNT W/ 2020-05-04 09:17:00 Marky Magallon MD DIFFERENTIAL GLUCOSE, RANDOM 2020-05-04 09:17:00 Marky Magallon MD Andgibsono n CALCIUM LEVEL TOTAL 2020-05-04 09:17:00 Marky Magallon MD And erson BLOOD UREA NITROGEN 2020-05-04 09:17:00 Marky Magallon MD And erson SERUM CREATININE 2020-05-04 09:17:00 Marky Magallon MD Papo on SODIUM LEVEL 2020-05-04 09:17:00 Marky Magallon MD And[facility]ark n POTASSIUM LEVEL 2020-05-04 09:17:00 Marky Magallon MD Andg[facility]sono n MAGNESIUM LEVEL 2020-05-04 09:17:00 Marky Magallon MD [facility] n CHLORIDE LEVEL 2020-05-04 09:17:00 Marky Magallon MD Andg[facility] n CARBON DIOXIDE LEVEL 2020-05-04 09:17:00 Marky Magallon MD TOTAL PROTEIN 2020-05-04 09:17:00 Marky Magallon MD Andg[facility]o n ALBUMIN LEVEL 2020-05-04 09:17:00 Marky Magallon MD [facility] n PHOSPHORUS LEVEL 2020-05-04 09:17:00 Marky Magallon MD Papo on FRACTIONATED BILIRUBIN 2020-05-04 09:17:00 Marky Magallon MD ALKALINE PHOSPHATASE 2020-05-04 09:17:00 Marky Magallon MD ALANINE AMINOTRANSFERASE 2020-05-04 09:17:00 Marky Magallon URIC ACID 2020-05-04 09:17:00 Marky Magallon MD Andg[facility] n LACTATE DEHYDROGENASE 2020-05-04 09:17:00 Marky Magallon MDrson BASIC METABOLIC PANEL, 2020-05-04 09:17:00 Ezequiel Bhat MD CALCIUM IONIZED CALCIUM IONIZED, VENOUS 2020-05-04 09:17:00 Florencio Cabrera MD nderson Results CBC 2020-05-04 09:17:00 Marky Magallon MD MANUAL DIFFERENTIAL 2020-05-04 09:17:00 Marky Magallon MD And erson SERUM CREATININE 2020-05-04 09:17:00 Marky Magallon MD Papo on .GLOMERULAR FILTRATION RATE 2020-05-04 09:17:00 Adelaida Magallon MD ANION GAP 2020-05-04 09:17:00 Marky Magallon MD EKG, 12-LEAD (PORTABLE) 2020-05-04 00:00:00 Jennifer Palencia MD BASIC METABOLIC PANEL, 2020-05-03 19:37:00 Ezequiel Bhat MDson CALCIUM IONIZED GLUCOSE LEVEL 2020-05-03 19:37:00 Florencio Cabrera MD BLOOD UREA NITROGEN 2020-05-03 19:37:00 Florencio Cabrera MD Angel son ELECTROLYTE PANEL 2020-05-03 19:37:00 Florencio Cabrera MD SERUM CREATININE 2020-05-03 19:37:00 Florencio Cabrera MD .GLOMERULAR FILTRATION RATE 2020-05-03 19:37:00 Florencio Cabrera MD CALCIUM IONIZED, VENOUS 2020-05-03 19:37:00 Florencio Cabrera MDrson TRANSFUSE RED BLOOD CELLS 2020-05-03 19:36:56 Barron Lo Wesley TRANSFUSE RED BLOOD CELLS 2020-05-03 16:46:48 Barron Lo Wesley BASIC METABOLIC PANEL, 2020-05-03 10:49:00 Jennifer Palencia MD CALCIUM IONIZED GLUCOSE LEVEL 2020-05-03 10:49:00 Jennifer Palencia MD [facility] n ELECTROLYTE PANEL 2020-05-03 10:49:00 Jennifer Palencia MD Angel son SERUM CREATININE 2020-05-03 10:49:00 Jennifer Palencia MD on .GLOMERULAR FILTRATION RATE 2020-05-03 10:49:00 Luz Palencia MD CALCIUM IONIZED, VENOUS 2020-05-03 10:49:00 Jennifer Palencia MD PREPARE RBC 2020-05-03 07:31:00 MD Zain Lo Wesley COMPLETE BLOOD COUNT W/ 2020-05-03 05:57:00 Marky Magallon MD DIFFERENTIAL GLUCOSE, RANDOM 2020-05-03 05:57:00 Marky Magallon MD [facility] CALCIUM LEVEL TOTAL 2020-05-03 05:57:00 Marky Magallon MD And erson BLOOD UREA NITROGEN 2020-05-03 05:57:00 Marky Magallon MD And erson SERUM CREATININE 2020-05-03 05:57:00 Marky Magallon MD Papo on SODIUM LEVEL 2020-05-03 05:57:00 Marky Magallon MD And[facility] n POTASSIUM LEVEL 2020-05-03 05:57:00 Marky Magallon MD Andb[facility]ark n MAGNESIUM LEVEL 2020-05-03 05:57:00 Marky Magallon MD [facility] n CHLORIDE LEVEL 2020-05-03 05:57:00 Marky Magallon MD Andgibsono n CARBON DIOXIDE LEVEL 2020-05-03 05:57:00 Marky Magallon MD TOTAL PROTEIN 2020-05-03 05:57:00 Marky Magallon MD Andb[facility]ark n ALBUMIN LEVEL 2020-05-03 05:57:00 Marky Magallon MD Andb[facility] n PHOSPHORUS LEVEL 2020-05-03 05:57:00 Marky Magallon MD Papo on FRACTIONATED BILIRUBIN 2020-05-03 05:57:00 Marky Magallon MD ALKALINE PHOSPHATASE 2020-05-03 05:57:00 Marky Magallon MD ALANINE AMINOTRANSFERASE 2020-05-03 05:57:00 Marky Magallon URIC ACID 2020-05-03 05:57:00 Marky Magallon MD Andbismark n LACTATE DEHYDROGENASE 2020-05-03 05:57:00 Marky Magallon MD nderson Results CBC 2020-05-03 05:57:00 Marky Magallon MD Andbismark n MANUAL DIFFERENTIAL 2020-05-03 05:57:00 Marky Magallon MD And erson SERUM CREATININE 2020-05-03 05:57:00 Marky Magallon MD Papo on .GLOMERULAR FILTRATION RATE 2020-05-03 05:57:00 Adelaida Magallon MD ANION GAP 2020-05-03 05:57:00 Marky Magallon MD BASIC METABOLIC PANEL, 2020-05-03 03:06:00 Jennifer Palencia MD CALCIUM IONIZED GLUCOSE LEVEL 2020-05-03 03:06:00 Jennifer Palencia MD BLOOD UREA NITROGEN 2020-05-03 03:06:00 Jennifer Palencia MD And erson ELECTROLYTE PANEL 2020-05-03 03:06:00 [facility] 2020-05-03 03:06:00 Jennifer Palencia MD [...] ELECTROLYTE PANEL 2020-05-02 19:14:00 [facility] SERUM CREAT[facility]INE 2020-05-02 19:14:00 Jennifer Palencia MD [...] Cabrera MDson PREPARE RBC 2020-05-02 11:48:00 MD Zani Lo Wesley TYPE AND SCREEN 2020-05-02 11:19:00 Marky Magallon MD Andg[facility] n ABORH 2020-05-02 11:19:00 Marky Magallon MD [facility] n ANTIBODY SCREEN 2020-05-02 11:19:00 Marky Magallon MD Andg[facility]sono n COMPLETE BLOOD COUNT W/ 2020-05-02 11:19:00 Marky Magallon MD DIFFERENTIAL GLUCOSE, RANDOM 2020-05-02 11:19:00 Marky Magallon MD Andg[facility] n CALCIUM LEVEL TOTAL 2020-05-02 11:19:00 Marky Magallon MD And erson BLOOD UREA NITROGEN 2020-05-02 11:19:00 Marky Magallon MD And erson SERUM CREATININE 2020-05-02 11:19:00 Marky Magallon MD Papo on SODIUM LEVEL 2020-05-02 11:19:00 Marky Magallon MD Andgibsono n POTASSIUM LEVEL 2020-05-02 11:19:00 Marky Magallon MD Andgibsono n MAGNESIUM LEVEL 2020-05-02 11:19:00 Marky Magallon MD Andg[facility] n CHLORIDE LEVEL 2020-05-02 11:19:00 Marky Magallon MD Andgibsono n CARBON DIOXIDE LEVEL 2020-05-02 11:19:00 Marky Magallon MD An derson TOTAL PROTEIN 2020-05-02 11:19:00 Marky Magallon MD Andgibsono n ALBUMIN LEVEL 2020-05-02 11:19:00 Marky Magallon MD Andgibsono n PHOSPHORUS LEVEL 2020-05-02 11:19:00 Marky Magallon MD Papo on FRACTIONATED BILIRUBIN 2020-05-02 11:19:00 Marky Magallon MD ALKALINE PHOSPHATASE 2020-05-02 11:19:00 Marky Magallon MD ALANINE AMINOTRANSFERASE 2020-05-02 11:19:00 Marky Magallon URIC ACID 2020-05-02 11:19:00 Marky Magallon MD [facility] LACTATE DEHYDROGENASE 2020-05-02 11:19:00 Marky Magallon MD nderson PROTHROMBIN TIME 2020-05-02 11:19:00 Marky Magallon MD Papo on PARTIAL THROMBOPLASTIN TIME 2020-05-02 11:19:00 Adelaida Magallon MD D DIMER 2020-05-02 11:19:00 Marky Magallon MD [facility] FIBRINOGEN ACTIVITY 2020-05-02 11:19:00 Marky Magallon MD And erson Results CBC 2020-05-02 11:19:00 Marky Magallon MD MANUAL DIFFERENTIAL 2020-05-02 11:19:00 Marky Magallon MD And erson SERUM CREATININE 2020-05-02 11:19:00 Marky Magallon MD Papo on .GLOMERULAR FILTRATION RATE 2020-05-02 11:19:00 Adelaida Magallon MD ANION GAP 2020-05-02 11:19:00 Marky Magallon MD [facility] CLOT EXPIRATION DATE 2020-05-02 11:19:00 Marky Magallon MD TMP INTERPRETATION ANTIBODY 2020-05-02 11:19:00 Adelaida Magallon MD SCREEN NEGATIVE TMP CROSSMATCH 2020-05-02 11:19:00 Marky Magallon MD INTERPRETATION EKG, 12-LEAD (PORTABLE) 2020-05-02 00:00:00 Jennifer Palencia MD US RENAL 2020-05-01 20:38:07 Marky Magallon MD URINE CULTURE 2020-05-01 19:48:00 Marky Magallon MD n VRE CULTURE 2020-05-01 19:48:00 Marky Magallon MD URINALYSIS WITH MICROSCOPIC 2020-05-01 19:48:00 Adelaida Magallon MD IF INDICATED URINALYSIS MICROSCOPIC 2020-05-01 19:48:00 Marky Magallon MD HC 2019-NCOV COVID-19 2020-05-01 17:35:00 Ana Valentine MD And alex Carvalho TOTAL PROTEIN 2020-05-01 12:44:00 Katina Quintana MD ALBUMIN LEVEL 2020-05-01 12:44:00 Katina Quintana MD CALCIUM LEVEL TOTAL 2020-05-01 12:44:00 Katina Quintana MD Angel berlin PHOSPHORUS LEVEL 2020-05-01 12:44:00 Katina Quintana MD GLUCOSE, RANDOM 2020-05-01 12:44:00 Katina Quintana MD BLOOD UREA NITROGEN 2020-05-01 12:44:00 [facility] SER[facility] 2020-05-01 12:44:00 Katina Quintana MD URIC ACID 2020-05-01 12:44:00 Katina Quintana MD FRACTIONATED BILIRUBIN 2020-05-01 12:44:00 Katina Quintana MD derson ALKALINE PHOSPHATASE 2020-05-01 12:44:00 Katina Quintana MD rson LACTATE DEHYDROGENASE 2020-05-01 12:44:00 Katina Quintana MD And alex ALANINE AMINOTRANSFERASE 2020-05-01 12:44:00 Katina Quintana MD ELECTROLYTE PANEL 2020-05-01 12:44:00 Katina Quintana MD MAGNESIUM LEVEL 2020-05-01 12:44:00 Katina Quintana MD ASPARTATE AMINOTRANSFERASE 2020-05-01 12:44:00 Katina Quintana TYPE AND SCREEN 2020-05-01 12:44:00 Katina Quintana MD COMPLETE BLOOD COUNT W/ 2020-05-01 12:44:00 Katina Quintana MDrson DIFFERENTIAL SERUM CREATININE 2020-05-01 12:44:00 Katina Quintana MD .GLOMERULAR FILTRATION RATE 2020-05-01 12:44:00 Katina Quintana MD Results CBC 2020-05-01 12:44:00 Katina Quintana MD MANUAL DIFFERENTIAL 2020-05-01 12:44:00 Katina Quintana MD Angel son ABORH 2020-05-01 12:44:00 Katina Quintana MD ANTIBODY SCREEN 2020-05-01 12:44:00 Katina Quintana MD CLOT EXPIRATION DATE 2020-05-01 12:44:00 Katina Quintana MD rstaiwo TMP INTERPRETATION ANTIBODY 2020-05-01 12:44:00 Katina Quintana MD SCREEN NEGATIVE TMP CROSSMATCH 2020-05-01 12:44:00 Katina Quintana MD INTERPRETATION COMPLETE BLOOD COUNT W/ 2020-04-12 14:02:00 MD Zain Degroot DIFFERENTIAL Wendy COMPREHENSIVE METABOLIC 2020-04-12 14:02:00 MD Zain Degroot PANEL Wendy PHOSPHORUS LEVEL 2020-04-12 14:02:00 Audie Zamora MD Yeison rson Wendy URIC ACID 2020-04-12 14:02:00 MD Angel Degroot LACTATE DEHYDROGENASE 2020-04-12 14:02:00 MD Zain Degroot Wendy MAGNESIUM LEVEL 2020-04-12 14:02:00 MD Angel Degroot HLA STEM CELL COLLECTION - 2020-04-12 14:02:00 MD Zain Joiner HLA SCT Wendy Results CBC 2020-04-12 14:02:00 MD Angel Degroot MANUAL DIFFERENTIAL 2020-04-12 14:02:00 MD Genesis Degroot nderson Wendy GLUCOSE LEVEL 2020-04-12 14:02:00 MD Angel Degroot BLOOD UREA NITROGEN 2020-04-12 14:02:00 MD Genesis Degroottaiwo Wendy ELECTROLYTE PANEL 2020-04-12 14:02:00 Audie Zamora MD And erson Wendy SERUM CREATININE 2020-04-12 14:02:00 Audie Zamora MD Yeison rstaiwo Nguyen .GLOMERULAR FILTRATION RATE 2020-04-12 14:02:00 MD Zain Cooper CALCIUM LEVEL TOTAL 2020-04-12 14:02:00 MD Genesis Degroot ALBUMIN LEVEL 2020-04-12 14:02:00 Audie Zamora MD Angelwendy Nguyen ALKALINE PHOSPHATASE 2020-04-12 14:02:00 MD Zain Degroot ALANINE AMINOTRANSFERASE 2020-04-12 14:02:00 MD Zain Degroot ASPARTATE AMINOTRANSFERASE 2020-04-12 14:02:00 MD Zain Joiner TOTAL PROTEIN 2020-04-12 14:02:00 Audie Zamora MD Angelwendy Nguyen FRACTIONATED BILIRUBIN 2020-04-12 14:02:00 Barron Degroot ABORH 2020-04-12 14:02:00 Audie Zamora MD [facility] Wendy ANTIBODY SCREEN 2020-04-12 14:02:00 Audie Zamora MD Angel [facility] Wendy TMP INTERPRETATION ANTIBODY 2020-04-12 14:02:00 MD Zain Cooper SCREEN NEGATIVE Wendy CLOT EXPIRATION DATE 2020-04-12 14:02:00 MD Zain Degroot TOTAL PROTEIN 2020-04-03 16:58:00 Charlie Whitaker MD ALBUMIN LEVEL 2020-04-03 16:58:00 Charlie Whitaker MD CALCIUM LEVEL TOTAL 2020-04-03 16:58:00 Charlie Whitaker MD Angel [facility] PHOSPHORUS LEVEL 2020-04-03 16:58:00 Charlie Whitaker MD GLUCOSE, RANDOM 2020-04-03 16:58:00 Charlie Whitaker MD BLOOD UREA NITROGEN 2020-04-03 16:58:00 Charlie Whitaker MD Angel son SERUM CREATININE 2020-04-03 16:58:00 Charlie Whitaker MD URIC ACID 2020-04-03 16:58:00 Charlie Whitaker MD FRACTIONATED BILIRUBIN 2020-04-03 16:58:00 Charlie Whitaker MD derson ALKALINE PHOSPHATASE 2020-04-03 16:58:00 Charlie Whitaker MD Yeison rson LACTATE DEHYDROGENASE 2020-04-03 16:58:00 Charlie Whitaker MD And erson ALANINE AMINOTRANSFERASE 2020-04-03 16:58:00 Charlie Whitaker MD ELECTROLYTE PANEL 2020-04-03 16:58:00 Charlie Whitaker MD [facility] burnham MAGNESIUM LEVEL 2020-04-03 16:58:00 Charlie Whitaker MD ASPARTATE AMINOTRANSFERASE 2020-04-03 16:58:00 Charlie Whitaker TYPE AND SCREEN 2020-04-03 16:58:00 Charlie Whitaker MD COMPLETE BLOOD COUNT W/ 2020-04-03 16:58:00 Charlie Whitaker MD nderson DIFFERENTIAL FERRITIN LVL 2020-04-03 16:58:00 Charlie Whitaker MD IRON LEVEL 2020-04-03 16:58:00 Charlie Whitaker MD TRANSFERRIN 2020-04-03 16:58:00 Charlie Whitaker MD SERUM CREATININE 2020-04-03 16:58:00 Marky Magallon MD Papo on .GLOMERULAR FILTRATION RATE 2020-04-03 16:58:00 Adelaida Magallon MD Results CBC 2020-04-03 16:58:00 Marky Magallon MD Andbismark n MANUAL DIFFERENTIAL 2020-04-03 16:58:00 Marky Magallon MD And erson ABORH 2020-04-03 16:58:00 Marky Magallon MD Andgibsono n ANTIBODY SCREEN 2020-04-03 16:58:00 Marky Mgaallon MD Andgibsono n CLOT EXPIRATION DATE 2020-04-03 16:58:00 Marky Magallon MDson TMP INTERPRETATION ANTIBODY 2020-04-03 16:58:00 Adelaida Magallon MD SCREEN NEGATIVE URINE CULTURE 2020-03-06 19:59:00 Charlie Whitaker MD URINALYSIS WITH MICROSCOPIC 2020-03-06 19:59:00 Charlie Whitaker MD IF INDICATED URINALYSIS MICROSCOPIC 2020-03-06 19:59:00 Marky Magallon MD TOTAL PROTEIN 2020-03-06 16:36:00 Dominick Martinez MD ALBUMIN LEVEL 2020-03-06 16:36:00 Dominick Martinez MD CALCIUM LEVEL TOTAL 2020-03-06 16:36:00 Dominick Martinez MD Angel son PHOSPHORUS LEVEL 2020-03-06 16:36:00 Dominick Martinez MD GLUCOSE, RANDOM 2020-03-06 16:36:00 Dominick Martinez MD BLOOD UREA NITROGEN 2020-03-06 16:36:00 Dominick Martinez MD Angel son SERUM CREATININE 2020-03-06 16:36:00 Dominick Martinez MD URIC ACID 2020-03-06 16:36:00 Dominick Martinez MD FRACTIONATED BILIRUBIN 2020-03-06 16:36:00 Dominick Martinez MD ALKALINE PHOSPHATASE 2020-03-06 16:36:00 Dominick Martinez MD Yeison rson LACTATE DEHYDROGENASE 2020-03-06 16:36:00 Dominick Martinez MD And erstaiwo ALANINE AMINOTRANSFERASE 2020-03-06 16:36:00 Dominick Martinez MD ELECTROLYTE PANEL 2020-03-06 16:36:00 Dominick Martinez MD MAGNESIUM LEVEL 2020-03-06 16:36:00 Dominick Martinez MD ASPARTATE AMINOTRANSFERASE 2020-03-06 16:36:00 Dominick Martinez TYPE AND SCREEN 2020-03-06 16:36:00 Dominick Martinez MD COMPLETE BLOOD COUNT W/ 2020-03-06 16:36:00 Dominick Martinez MD nderson DIFFERENTIAL SERUM CREATININE 2020-03-06 16:36:00 Marky Magallon MD Papo on .GLOMERULAR FILTRATION RATE 2020-03-06 16:36:00 Adelaida Magallon MD Results CBC 2020-03-06 16:36:00 Marky Magallon MD MANUAL DIFFERENTIAL 2020-03-06 16:36:00 Marky Magallon MD And erson ABORH 2020-03-06 16:36:00 Marky Magallon MD ANTIBODY SCREEN 2020-03-06 16:36:00 Marky Magallon MD CLOT EXPIRATION DATE 2020-03-06 16:36:00 Marky Magallon MD derson TMP INTERPRETATION ANTIBODY 2020-03-06 16:36:00 Adelaida Magallon MD SCREEN NEGATIVE SPIROMETRY W/O DILATORS, 2020-02-14 16:01:10 MD Zain Degroot DLCO AND BODY Wendy PLETHSMOGRAPHIC LUNG VOLUMES ECHOCARDIOGRAM 2D COMPLETE 2020-02-14 15:35:03 MD Zain Joinerra CMV ANTIBODY IGG AND IGM 2020-02-14 12:05:00 MD Zain Degroot CMV ANTIBODY IGG AND IGM 2020-02-14 12:05:00 MD Zain Degroot PATH REVIEW Wendy TYPE AND SCREEN 2020-02-14 12:05:00 Katina Quintana MD COMPLETE BLOOD COUNT W/ 2020-02-14 12:05:00 Katina Quintana MD nderson DIFFERENTIAL TOTAL PROTEIN 2020-02-14 12:05:00 Katina Quintana MD ALBUMIN LEVEL 2020-02-14 12:05:00 Katina Quintana MD CALCIUM LEVEL TOTAL 2020-02-14 12:05:00 Katina Quintana MD PHOSPHORUS LEVEL 2020-02-14 12:05:00 Katina Quintana MD GLUCOSE, RANDOM 2020-02-14 12:05:00 Katina Quintana MD BLOOD UREA NITROGEN 2020-02-14 12:05:00 Katina Quintana MD SERUM CREATININE 2020-02-14 12:05:00 Katina Quintana MD URIC ACID 2020-02-14 12:05:00 Katina Quintana MD FRACTIONATED BILIRUBIN 2020-02-14 12:05:00 Katina Quintana MDson ALKALINE PHOSPHATASE 2020-02-14 12:05:00 Katina Quintana MD LACTATE DEHYDROGENASE 2020-02-14 12:05:00 Katina Quintana ALANINE AMINOTRANSFERASE 2020-02-14 12:05:00 Katina Quintana MD ELECTROLYTE PANEL 2020-02-14 12:05:00 Katina Quintana MD Andgibsono n MAGNESIUM LEVEL 2020-02-14 12:05:00 Katina Quintnaa MD ABORH 2020-02-14 12:05:00 Katina Quintana MD ANTIBODY SCREEN 2020-02-14 12:05:00 Katina Quintana MD Results CBC 2020-02-14 12:05:00 Katina Quintana MD MANUAL DIFFERENTIAL 2020-02-14 12:05:00 Katina Quintana MD SERUM CREATININE 2020-02-14 12:05:00 Katina Quintana MD .GLOMERULAR FILTRATION RATE 2020-02-14 12:05:00 Katina Quintana MD RAPID PLASMA REAGIN (RPR) 2020-02-14 12:05:00 MD Zain Degroot Wendy HIV-1 STEPHANIE 2020-02-14 12:05:00 Audie Zamora MD Angel berlin Wendy CBC PATHOLOGY REVIEW 2020-02-14 12:05:00 Katina Quintana MD rson PRELIMINARY DIFFERENTIAL 2020-02-14 12:05:00 Katina Quintana MD CLOT EXPIRATION DATE 2020-02-14 12:05:00 Katina Quintana MD TMP INTERPRETATION ANTIBODY 2020-02-14 12:05:00 Katina Quintana MD SCREEN NEGATIVE TMP RPR PATH INTERP 2020-02-14 12:05:00 MD Genesis Degroot TMP HIV-1 STEPHANIE PATH INTERP 2020-02-14 12:05:00 MD Zain Degroot Wendy [place] CHG HEPATITIS B SURFACE 2020-02-14 12:05:00 MD [...] LEVEL TOTAL 2020-01-19 17:08:00 Katina Quintana MD son PHOSPHORUS LEVEL 2020-01-19 17:08:00 Katina Quintana MD GLUCOSE, RANDOM 2020-01-19 17:08:00 Katina Quintana MD BLOOD UREA NITROGEN 2020-01-19 17:08:00 Katina Quintana MD son SERUM CREATININE 2020-01-19 17:08:00 Katina Quintana MD URIC ACID 2020-01-19 17:08:00 Katina Quintana MD FRACTIONATED BILIRUBIN 2020-01-19 17:08:00 Katina Quintana MDson ALKALINE PHOSPHATASE 2020-01-19 17:08:00 Katina Quintana MD rson LACTATE DEHYDROGENASE 2020-01-19 17:08:00 Katina Quintana ALANINE AMINOTRANSFERASE 2020-01-19 17:08:00 Katina Quintana MD ELECTROLYTE PANEL 2020-01-19 17:08:00 Katina Quintana MDo n MAGNESIUM LEVEL 2020-01-19 17:08:00 Katina Quintana MD ASPARTATE AMINOTRANSFERASE 2020-01-19 17:08:00 Katina Quintana THYROXINE 2020-01-19 17:08:00 Katina Quintana MD THYROID STIMULATING HORMONE 2020-01-19 17:08:00 Katina Quintana MD IRON LEVEL 2020-01-19 17:08:00 Katina Quintana MD FERRITIN LVL 2020-01-19 17:08:00 Katina Quintana MD VITAMIN B12 LEVEL 2020-01-19 17:08:00 Katina Quintana MD FOLATE LEVEL 2020-01-19 17:08:00 Katina Quintana MD ERYTHROPOIETIN LEVEL 2020-01-19 17:08:00 Katina Quintana MD rson TYPE AND SCREEN 2020-01-19 17:08:00 Katina Quintana MD COMPLETE BLOOD COUNT W/ 2020-01-19 17:08:00 Katina Quintana MDrson DIFFERENTIAL PROTHROMBIN TIME 2020-01-19 17:08:00 Katina Quintana MD PARTIAL THROMBOPLASTIN TIME 2020-01-19 17:08:00 Katina Quintana MD RESEARCH PROTOCOL 2020-01-19 17:08:00 Katina Quintana MD [id number] SERUM CREATININE 2020-01-19 17:08:00 Katina Quintana MD .GLOMERULAR FILTRATION RATE 2020-01-19 17:08:00 Katina Quintana MD ABORH 2020-01-19 17:08:00 Katina Quintana MD Results CBC 2020-01-19 17:08:00 Katina Quintana MD ANTIBODY SCREEN 2020-01-19 17:08:00 Katina Quintana MD MANUAL DIFFERENTIAL 2020-01-19 17:08:00 Katina Quintanaer son CLOT EXPIRATION DATE 2020-01-19 17:08:00 Katina Quintana MD rson TMP INTERPRETATION ANTIBODY 2020-01-19 17:08:00 Katina Quintana MD SCREEN NEGATIVE TMP CROSSMATCH 2020-01-19 17:08:00 Katina Quintana MD INTERPRETATION CONFIRM ABORH TYPE 2020-01-19 16:53:00 Katina Quintana MD on BONE MARROW REFERRAL 2019-12-16 18:00:00 Pancho, MD Yeison posada HISTORIC Pathology US, duplex, arterial, lower 2018-12-01 00:00:00 [facility] Percutaneous transluminal [facility] [place] insertion of metal stent into coronary artery using fluoroscopic guidance Plan of Care Planned Activity Planned Date Details Comments Source Diagnostic Test 2020-04-23 urinalysis, dipstick [facility] Pending 00:00:00 [code = urinalysis, Group dipstick] Diagnostic Test 2020-04-23 culture, urine + [facility] Pending 00:00:00 sensitivity [code = Group culture, urine + sensitivity] Instructions [facility] Encounters Start End Encounter Admission Attending Care Care Encounter Source Date/Time Date/Time Type Type Clinicians Facility Department ID 2020-06-04 Outpatient AWILDA MERA, MDA MDA [id number] 13:08:07 RICARDO burnham 2020-05-04 Inpatient EL MDA MDA [id number] 14:31:16 Julia burnham 2020-05-01 Inpatient EL MDA MDA [id number] 15:12:16 Julia burnham 2019-12-15 Outpatient [id number] [facility] 16:19:55 2020-07-19 2020-07-19 Outpatient EL THERON, MDA MDA [id number] 00:00:00 00:00:00 MATT burnham 2020-07-05 2020-07-05 Outpatient EL SHERITA, MDA MDA [id number] 00:00:00 00:00:00 MARKY burnham 2020-07-05 2020-07-05 Outpatient EL BOYANTONIO, MDA MDA [id number] 00:00:00 00:00:00 KATINA burnham 2020-06-29 2020-06-29 Outpatient EL TAL-BETTY MDA MDA [id number] 10:18:00 23:59:00 Papo OSBORNE 2020-06-27 2020-06-27 Outpatient [facility] MDA MDA [id number] 10:18:00 23:59:00 Papo OSBORNE 2020-06-14 2020-06-14 Outpatient LILIAN, MDA MDA [id number] 10:42:35 23:59:00 KATINA burnham 2020-06-14 2020-06-14 Outpatient IZZY ALVARADO MDA MDA [id number] 12:35:02 12:35:02 Papo burnham 2020-06-14 2020-06-14 Outpatient SHERITA, MDA MDA [id number] 07:21:51 10:45:34 MARKY burnham 2020-06-14 2020-06-14 Outpatient LILIAN, MDA MDA [id number] 07:09:37 10:41:00 KATINA burnham 2020-06-08 2020-06-09 Outpatient [facility] [id number] 11:22:20 23:59:59 03 2020-05-17 2020-05-17 Outpatient LILIAN, MDA MDA [id number] 08:40:21 23:59:00 KATINA burnham 2020-05-10 2020-05-10 Outpatient SHERITA, MDA MDA [id number] 10:13:25 23:59:00 MARKY burnham 2020-05-10 2020-05-10 Outpatient SHERITA, MDA MDA [id number] 13:08:48 15:10:17 MARKY burnham 2020-05-10 2020-05-10 Outpatient TALHA, MDA MDA [id number] 08:00:00 10:12:00 JENNIFER burnham 2020-05-10 2020-05-10 Outpatient TALHA, MDA MDA [id number] 08:19:22 08:19:22 JENNIFER burnham 2020-05-01 2020-05-[address] [facility] MDA Leukemia [id number] 13:49:42 16:58:00 Papo DAVIS 2020-05-04 2020-05-[address] [facility] MDA MDA [id number] 16:00:30 16:22:25 Papo DAVIS 2020-05-04 2020-05-04 Inpatient EL TALHA, MDA MDA [id number] 11:10:51 12:38:19 JENNIFER burnham 2020-05-01 2020-05-01 Inpatient EL SHERITA, MDA MDA [id number] 16:27:08 16:36:26 MARKY burnham 2020-05-01 2020-05-01 Outpatient AWILDA QUINTANA, MDA MDA [id number] 07:35:09 13:48:00 KATINA burnham 2020-05-01 2020-05-01 Outpatient AWILDA MAGALLON, MDA MDA [id number] 07:48:23 12:25:06 MARKY burnham 2020-05-01 2020-05-01 Outpatient AWILDA QUINTANA, MDA MDA [id number] 00:00:00 00:00:00 KATINA burnham 2020-04-23 2020-04-23 Outpatient AWILDA ENCARNACION MDA MDA [id number] 09:40:20 23:59:00 Papo OSBORNE 2020-04-23 2020-04-23 Angélica [facility] [place] - [id number] Barron moy 00:00:00 00:00:00 Discovery andreina Luis [employer]IMMER: [address] [place] [address] , Ph. 2020-01-19 2020-01-19 Outpatient AWILDA MAGALLON, MDA MDA [id number] 10:14:43 12:57:52 MARKY burnham 2019-12-15 2019-12-16 Outpatient [facility] [id number] 13:24:58 23:59:59 02 2019-12-16 2019-12-16 Outpatient NENITA RahmanPL [id number] 07:34:00 23:59:00 Cony 03 Ariela 2019-11-28 2019-11-28 Kota [facility] [place] - [id number] [place] 00:00:00 00:00:00 Christiano Khan [facility] MD: [address], [place] [address] , Ph. 2019-11-21 2019-11-21 Outpatient Cara, [facility] [id number] 12:30:00 23:59:59 Rickie Escobar 2019-10-24 2019-10-25 Outpatient [facility] [id number] 08:59:24 23:59:59 2019-10-24 2019-10-24 Outpatient Loida L [facility] [id number] 14:30:00 23:59:59 Cassandra 2019-10-20 2019-10-22 [facility] [id number] 18:41:00 14:30:00 Tio Reginald Gimenez Sujatha 2019-10-20 2019-10-19 Inpatient U [facility] [id number] SW 18:41:00 13:46:00 2019-10-06 2019-10-06 Outpatient VISIT, [facility] MH[facility] [id number] 11:45:00 23:59:59 NURSE [facility] 02 XRAY 2019-10-06 2019-10-06 Outpatient Cara, [facility] [id number] 10:00:00 23:59:59 Rickie Escobar 2019-10-03 2019-10-03 Outpatient Cara, MHSL MHSL [id number] 08:35:00 23:59:00 Rickie Escobar 2019-10-03 2019-10-03 Outpatient MHFB CAR 7500 MHFB 08:35:00 08:35:00 2019-09-12 2019-09-12 Outpatient Cara, [facility] [id number] 09:00:00 23:59:59 Rickie Escobar 2019-09-09 2019-09-10 Outpatient [facility] [id number] 10:21:45 23:59:59 00 2019-09-08 2019-09-08 Kota [facility] [place] [facility] [id number] [facility]00 Charmaine Chance Medical MD: [address], [place] [address] , Ph. 2018-12-24 2018-12-24 Niles [facility] [place] - [id number] M at[place]or 00:00:00 00:00:00 Doug Michel MD: Medical Medica l [address] [facility] [place] [address], [place] [address] , Ph. [phone] 2018-12-01 2018-12-01 Kota [facility] [place] - [id number] [place] 00:00:00 00:00:00 Christiano Khan Medical Medical MD: [address] [facility] [place] [address], [place] [address] , Ph. Results Test Description Test Time Test Comments Results Result Comments Source Research Protocol [id number] 2020-06-15 15:55:28 Test Item Value Reference Range Interpretation Comme nts Research Prot (test code = 7189) 432885 MD PittmanTMP Interpretation Antibody Screen Zgjbmtdy1719-86-44 16:58:17 Test Item Value Reference Range Interpretation Comments TMP Auto Neg At the present ABSC Interp time, patient (test code = plasma shows no ____PARAS JONATHON 7535) evidence of RBC EMMIEFEKEESHAACHE R alloantibodies. Beto MILAN jeovanny by: PARAS MILAN,Dictated Date/Time: 05.18 11:58 AM CDT Transcribed [place] e/Time: 06.14.2020 11:5 8 AM CDTElectronical ly Signed By: PARAS POST, on 06.14.2020 1 1:58 AM MD PittmanIuzprhtfIXRZc2263-88-70 15:23:08 Test Item Value Reference Range Interpretation Comments ABORh. (test code = 882-1) A POS MD Barrios Expiration Gkvh9927-72-02 15:23:06 Test Item Value Reference Range Interpretation Comments T & S Expiration (test code = 06/17/2020 5318) MD PittmanAntibody Lcfxue3940-20-44 15:22:29 Test Item Value Reference Range Interpretation Comments ABSC. (test code = 890-4) Negative ABSC MD PittmanHpaasxflKkgoqhcebplp4512-20-31 14:25:53 Test Item Value Reference Range Interpretation Comments Neutrophil % (test code 50.0 % 42-66 The Neutrophil count = 6491) includes Bands. Lymphocyte % (test code 25.0 % 24-44 = 6194) Monocyte % (test code = 13.0 % 2-7 H 6422) Metamyelocyte % (test 12.0 % <=0.0 H The Me tamyelocyte code = 6399) count includes Myelocytes. NRBC (test code = 6472) 1.0 <=0.0 H Neutrophil Abs (test 1.45 K/uL 1.7-7.3 L code = 6492) Lymphocyte Abs (test 0.73 K/uL 1-4.8 L code = 6195) Monocyte Abs (test code 0.38 K/uL 0.08-0.7 = 6423) RBC Morph (test code = Present Normal A 6942) PLT Morph (test code = Normal Normal 6646) Anisocytosis (test code Present Not Present A = 4811) Poik (test code = 6840) Present Not Present A Ovalocyte (test code = Present Not Present A 6584) Lab Interpretation Abnormal (test code = 33919-6) MD Pittman.[id number] 14:25:51 Test Item Value Reference Range Interpretation Comments WBC (test code = 8034) 2.9 K/uL 4-11 L RBC (test code = 6932) 3.29 4.50- 6.00 M/uL L Hgb (test code = 5898) 9.5 14.0- 18.0 gm/dL L Hct (test code = 5860) 30.6 % 40-54 L MCV (test code = 6222) 93 fL 82-98 MCH (test code = 6220) 28.9 pg 27-31 MCHC (test code = 6221) 31.0 31.0- 36.0 gm/dL RDW-SD (test code = 52.0 fL 35.1-46.3 H 6972) RDW-CV (test code = 15.5 % 12-15.5 6971) Platelet count (test 293 K/uL 140-440 code = 6832) MPV (test code = 6282) 9.7 fL 4-10.4 INRBC (test code = 2.4 % <=0.0 H The INRBC (instrument 5974) NRBC) value ref lects the enumeration of nucleated red b lood cells contained in a 200uL sampleof whole blood analyzed by the instrument. Thi s value maydiffer from the NRBC value reported in a m anual differential,wh ich is based on a 100 cell differential. Lab Interpretation Abnormal (test code = 38025-9) MD PittmanFractionated Xenqobhov4078-22-64 13:40:10 Test Item Value Reference Range Interpretation Comments Bili Total (test code 1.5 mg/dL <=1.2 H Indocy anine Green = 5096) (ICG) may cause falsely elevate d bilirubin resul ts. Total and direc t bilirubin must not be measured from s amples containing indo cyanine green. False el evation of total biliru bin can be seen in kavon ents with IgG concentrations above 28 g/L. Bili Direct (test code 0.4 mg/dL <=0.3 H Indoc yanine Green = 5094) (ICG) may cause falsely elevate d bilirubin resul ts. Total and direc t bilirubin must not be measured from s amples containing indo cyanine green. Bili Indirect (test 1.1 mg/dL 0-0.9 H code = 5095) Lab Interpretation Abnormal (test code = 59374-4) MD PittmanGlomerular Filtration [id number] 13:40:09 Test Item Value Reference Range Interpretation Comments eGFR-AA (test code = 53 >=60 mL/min/1.73 L Nor mal eGFR: >= 60 8062) sq. m mL/min/1.73 m2N ote: The eGFR is vish culated using the CKD-E PI equation. The e GFR declines with a ge. eGFR <60 mL/min /1.73 m2 is considere d as "decreased". Th is equation should only be used for pat ients 18 and older. According to th e National Kidney [employer]'s Ki dney Disease Outcome Quality Initiat cristal (KDOQI) classif ication and 2012 Kidney Disease Improvi ng Global Outcomes (KDIGO) Clinica l Practice Guidel ine, the stage of CK D should be categ orized based on estima jeovanny GFR. Stage Desc ription GFR mL/mi n/1.73 m21 Normal or h igh GFR >=902 Mildly decreased GFR 60-893a M ildly to moderately decreased GFR 45-593b Moderat nate to severely decrea sed GFR 30-444 Josey rely decreased GFR 15-295 Kidney f ailure <15 eGFR-ANN MARIE (test code = 46 >=60 mL/min/1.73 L No rmal eGFR: >= 60 8063) sq. m mL/min/1.73 m2N ote: The eGFR is vish culated using the CKD-E PI equation. The e GFR declines with a ge. eGFR <60 mL/min /1.73 m2 is considere d as "decreased". Th is equation should only be used for pat ients 18 and older. According to th e National Kidney [employer]'s Ki dney Disease Outcome Quality Initiat cristal (KDOQI) classif ication and 2012 Kidney Disease Improvi ng Global Outcomes (KDIGO) Clinica l Practice Guidel ine, the stage of CK D should be categ orized based on estima jeovanny GFR. Stage Desc ription GFR mL/mi n/1.73 m21 Normal or h igh GFR >=902 Mildly decreased GFR 60-893a M ildly to moderately decreased GFR 45-593b Moderat nate to severely decrea sed GFR 30-444 Josey rely decreased GFR 15-295 Kidney f ailure <15 Lab Interpretation Abnormal (test code = 92631-9) MD PittmanMagnesium Ynajj1742-42-18 13:40:08 Test Item Value Reference Range Interpretation Comments Magnesium (test code = 6359) 2.1 mg/dL 1.6-2.6 MD PittmanUskltrvyLPK0355-84-80 13:40:07 Test Item Value Reference Range Interpretation Comments LDH (test code = 6111) 645 U/L 135-225 H Resul ts greater than 1651 U/L may no t be reliable due to matrix effect w ith extended diluti on as it exceeds the pain management physician s recommended l imit. Caution should be exercised when interpreting godoy ch values and done in conjunction wit h clinical contex t. Lab Interpretation (test Abnormal code = 21813-7) MD PittmanAlkaline Fgducwaivle2223-84-37 13:40:06 Test Item Value Reference Range Interpretation Comments Alk Phos (test code = 4768) 94 U/L 40-129 MD PittmanAlbumin Vsyor8875-82-27 13:40:05 Test Item Value Reference Range Interpretation Comments Albumin Lvl (test code = 4763) 4.9 3.5- 5.2 gm/dL MD PittmanAspartate Lpymgaodmxkymhsm2067-37-48 13:40:04 Test Item Value Reference Range Interpretation Comments AST (test code = 4731) 24 U/L <=40 MD PittmanElectrolyte Pmeep4427-68-49 13:40:03 Test Item Value Reference Range Interpretation Comments Sodium Lvl (test code = 7355) 141 136- 145 mEq/L Potassium Lvl (test code = 6854) 4.8 3.5- 5.1 mEq/L Chloride (test code = 5279) 104 98- 107 mEq/L CO2 (test code = 5227) 26 22- 29 mEq/L Anion Gap (test code = 9325) 11 4- 14 mEq/L MD Pittman.Serum Mlpvosqfzl4711-68-56 13:40:02 Test Item Value Reference Range Interpretation Comments Creatinine (test code = 5399) 1.59 mg/dL 0.67-1.17 H Lab Interpretation (test code = Abnormal 37950-5) MD PittmanGlucose, Kwphks2468-46-78 13:40:00 Test Item Value Reference Range Interpretation Comments Glucose Random (test 105 mg/dL 70-199 Effecti ve 06/11/16, the code = 9360) glucose referen ce intervals have been updated based o n [place] [employer] [place] delines (Standards of M edical Care in Diabete s 2016. Diabetes Care 2 016; 39: S13-S22).Fastin g blood glucose:Normal: 70 99 mg/dLImpaire d fasting glucose (increa sed risk for diabetes or pre-diabetes): 100 125 mg/dLDiabet es mellitus: >/=1 26 mg/dL Random blood glucose:Normal: 70 199 mg/dLNote: Random glucose >100 mg /dL is associated with increased risk for diabetes MD PittmanUric [id number] 13:39:59 Test Item Value Reference Range Interpretation Comments Uric Acid (test code = 7955) 8.7 mg/dL 3.4-7 H Lab Interpretation (test code = Abnormal 75271-3) MD PittmanTotal [id number] 13:39:58 Test Item Value Reference Range Interpretation Comments Total Protein (test code = 7649) 8.0 g/dL 6.4-8.3 MD PittmanPhosphorus Egllf7851-89-53 13:39:57 Test Item Value Reference Range Interpretation Comments Phosphorus (test code = 6817) 3.3 mg/dL 2.5-4.5 MD PittmanCalcium Mzfha4317-05-95 13:39:56 Test Item Value Reference Range Interpretation Comments Calcium Lvl (test code = 5258) 9.9 mg/dL 8.4-10.2 MD PittmanAlanine Tvbppqiliahzferm3844-41-86 13:39:55 Test Item Value Reference Range Interpretation Comments ALT (test code = 4705) 37 U/L <=41 MD PittmanHzuiouppMJY0284-00-56 13:39:54 Test Item Value Reference Range Interpretation Comments BUN (test code = 5055) 36 mg/dL 6-23 H Lab Interpretation (test code = Abnormal 08262-4) MD PittmanWound Culture w/Gram [id number] 02:45:37 Test Item Value Reference Interpretation Comments Range Final Report (test Few Yeast A code = 8488) isolated...Moderate Staphylococcus coagulase negativeSusceptibility performed upon request. Plates will be held for 5 days...Normal site salvador present.Normal salvador consists of Rothia species like Path Review (test The results have been A code = 8492) reviewed and electronically signed by Pathologist:PATRICK FAYE MD #[id number] Gram Stain Report No WBC's seen.No organisms A (test code = seen. 75340-3) PAULIE (test code = Left lip PAULIE) Lab Interpretation Abnormal (test code = 46239-2) MD PittmanVRE Rectal Ayza0777-71-07 02:17:27 Test Item Value Reference Range Interpretation Comments Final Report (test No Vancomycin resistant code = 8488) Enterococci isolated Path Review - VRE The results have been (test code = 8485) reviewed and electronically signed by Pathologist:PATRICK FAYE MD #[id number] MD Amaroon Olu2923-88-28 09:24:35 Test Item Value Reference Range Interpretation Comments Anion Gap (test code = 9325) 11 4- 14 mEq/L MD PittmanChloride Uwwip4509-70-29 09:24:32 Test Item Value Reference Range Interpretation Comments Chloride (test code = 5279) 103 98- 107 mEq/L MD PittmanPotassium Jljbp6240-09-44 09:24:29 Test Item Value Reference Range Interpretation Comments Potassium Lvl (test code = 6854) 4.3 3.5- 5.1 mEq/L MD PittmanSodium Rmdjj6157-31-84 09:24:25 Test Item Value Reference Range Interpretation Comments Sodium Lvl (test code = 7355) 139 136- 145 mEq/L MD PittmanCarbon Dioxide Lscmy1545-28-59 09:24:18 Test Item Value Reference Range Interpretation Comments CO2 (test code = 5227) 25 22- 29 mEq/L MD PittmanPartial Thromboplastin Qohl2846-54-89 09:05:35 Test Item Value Reference Range Interpretation Comments PTT (test code = 21395-0) 36.5 24.2- 36.0 second(s) H Lab Interpretation (test code = Abnormal 13659-1) MD PittmanProthrombin Qghe4218-00-89 09:05:34 Test Item Value Reference Range Interpretation Comments PT (test code = 5902-2) 14.7 12.0- 14.3 second(s) H INR (test code = 6301-6) 1.16 0.90-1.10 H Lab Interpretation (test code = Abnormal 00968-3) MD PittmanDqyudkbjVvcqvhqvpw2672-69-90 09:05:33 Test Item Value Reference Range Interpretation Comments Fibrinogen (test code = 3255-7) 499 mg/dL 214-503 MD PittmanRswcdspaC-Pyoob0168-61-20 09:05:32 Test Item Value Reference Range Interpretation Comments D-Dimer (test code = 0.68 0.10- 0.50 [place] [address]-4) mcg/ml FEU exclusion of ve nous thromboembolism is <0.50 mcg/mL FEUs (fi brinogen equivalent unit s). Lab Interpretation Abnormal (test code = 91206-9) MD PittmanCalcium Ionized, Oxlmcb0038-72-82 08:28:58 Test Item Value Reference Range Interpretation Comments V Ion Ca (test code = 55683-7) 1.17 mmol/L 1.15-1.29 MD PittmanGlucose Ffbgn8906-60-70 23:56:40 Test Item Value Reference Range Interpretation Comments Glucose Level (test 88 mg/dL 70-99 Referenc e range is valid code = 5699) for fasting spe cimens only. Guideline s established by the [place] [employer] [place] delines (Standards of M edical Care in Diabete s 2016. Diabetes Care 2 016; 39: S13-22) are gavino t a fasting glucose of greater than or equal to 126 mg/dL or a random glucose greater than or equal to 200 mg /dL with symptoms, that are confirmed by re peat testing on a di fferent day, meet the beth vu for diabetes me moni. MD PittmanX-ray Chest 2 [id number] 19:49:29Central venous catheter appears to be in [...] be in satisfactory position without visible complication.MD PittmanPrepare RBC:g1181, 1 Units 2020-05-04 11:13:01 Test Item Value Reference Range Interpretation Comments PRBC Product Ready 1 Red Blood Cells (test code = Available - 17201-5) Order Form 03 when ready for product issue. Unit Number (test [id number] code = 7002) Product Code (test [id number] code = 7003) Unit Expiration (test code = ) Unit Blood Type 6200 (test code = 7004) Product Code Text RBCIRLR CP2D AS3 (test code = 500mL 283488) Crossmatch [id number] Expiration Date (test code = ) Unit Irradiated IRRADIATED (test code = 798353) Dispense Status ISSUED (test code = 7001) Unit Blood Type A Positive ____ (test code = 7005) _ ____ MD PittmanHSV/VZV DNA Glmpfvzis8572-16-00 18:04:18 Test Item Value Reference Range Interpretation [...] lesion Lab Interpretation Abnormal (test code = 51561-6) MD PittmanTMP Interpretation Cyygcrgmcy9045-65-06 18:01:42 Test Item Value Reference Range Interpretation Comments TMP XM Interp RBC units (test code = crossmatched for 7566) transfusion appear NAHOMI XAVIER,Dictated by: ÁNGELA XAVIER, Dictated Date/Time: 04.16 13:01 PM CDT Transcribed [place] e/Time: 05.03.2020 13:0 1 PM CDTElectronical ly Signed By: ANA XAVIER, on 04.16 13:01 PM MD PittmanGeneral Laboratory Add-On Nnbp9754-44-52 21:45:36 Test Item Value Reference Range Interpretation Comments Ordered (test code = Test Added 6568) Test Needed (test Magnesium and Phosphorus code = 7604) MD PittmanProtein/Creatinine Ratio Febdk8232-51-18 16:45:19 Test Item Value Reference Range Interpretation Comments UTP Ran (test code = 23 mg/dL Normal range not 7922) available for collections les s than 24 hours in dur ation. U Creatinine (test 65.8 mg/dL 40-278 The refer ence range code = 7725) listed is for f irst morning urine collection. U Prot/Creat (test 0.35 Normal ra nge not code = 7805) available for collections les s than 24 hoursin dura tion. MD PittmanUrinalysis with Itoemcsxnma6180-37-01 16:00:43 Test Item Value Reference Range Interpretation [...] implementation of new instrumentation in the [facility], allowing greater sensitivity of measurement. Urinalysis results reported by the [facility] using existing instrumentation, as well as Urinalysis testing performed manually or by backup methodology at the [facility] will remain relatively unchanged. New reporting parameters and units will now be reported for all campuses. Lab Interpretation Abnormal (test code = 98428-2) MD PittmanUrinalysis w/Microscopic if Zzspuevbs0597-92-55 15:54:49 Test Item Value Reference Range Interpretation [...] A Lab Interpretation (test code = Abnormal 33771-3) MD PittmanMD COVID-19 (SOLE-CoV-2) PCR Ykszkvlnkgyy7670-95-26 12:05:10 Test Item Value Reference Interpretation Comments Range COVID19 SARS Inpatient Admission Indication (test code = 01488) COVID19 SARS Result Not Detected Not Detected (test code = 94616) COVID19 SARS SARS-CoV-2 NOT Detected. Interpretation (test Reference Range: Not code = 96709) Detected Methodology: The [employer] RealTime SARS-CoV-2 assay is a qualitative real-time reverse plating engineer polymerase chain reaction (marine fireman-PCR) test to detect RNA from SARS-CoV-2 in nasal, nasopharyngeal and oropharyngeal swabs from patients with signs and symptoms of infection who are suspected of COVID-19 by their health care provider. The [employer] RealTime SARS-CoV-2 performed on the PPTV000 System is a dual target assay with [...] CLIA-certified, high-complexity Molecular Diagnostics Laboratory (MDL) at [facility] under the Food and Drug Administration (FDA) s Emergency Use Authorization. Factsheet for patients: https://www.[facility].org/ AbbottFactSheetPatientsFact sheet for healthcare providers: https://www.[facility].org/ AbbottFactSheetHCP Test performed by:The [facility] Molecular Diagnostic Ain8336 [place] [address] MD PittmanUS [id number] 20:44:031. Normal renal cortical echogenicity.2. No evidence [...] hydronephrosis or nephrolithiasis.3. Simple right renal cyst.MD Quijano Stem Cell Collection 2020-04-12 16:19:12 Test Item Value Reference Range Interpretation Comments Specimen Received Yes (test code = 8893) PAULIE (test code = PAULIE) Has patient had a prior allogeneic transplant?->NoIs patient's WBC < 0.2?->NoDoes patient have blasts present in blood?->NoHas the patient been transfused with Granulocytes within 7 days?->No MD PittmanFerritin Vdgrr7515-54-11 18:32:07 Test Item Value Reference Range Interpretation Comments Ferritin Lvl (test code = 5608) 534 ng/mL 30-400 H Lab Interpretation (test code = Abnormal 46098-4) MD PittmanTransferrin with UVXG8660-92-71 17:52:46 Test Item Value Reference Range Interpretation Comments Transferrin (test code = 7653) 201 mg/dL 200-360 TIBC (test code = 7532) 281 250- 450 mcg/dL MD PittmanIron Pucwg4112-30-71 17:52:45 Test Item Value Reference Range Interpretation Comments Iron (test code = 6066) 27 59- 158 mcg/dL L Lab Interpretation (test code = Abnormal 11606-9) MD PittmanComplete PFT ([place], DLCO, LV)2020-02-23 00:00:00 [...] 9530) Lab Interpretation (test code Abnormal = 77374-7) MD PittmanTae Inf Disease Path Lbsaao5513-10-35 13:52:03 Test Item Value Reference Range Interpretation Comments TMP ID Path Serologic Interp (test screening assays code = 9016) for transfusion CYNTHIA RICHTER MD transmitted - [id number] by: diseases, CYNTHIA RICHTER MD - including HBcAb, 89648Pnduxo ed HBsAg, HCVAb, HIV Date/Time: 02.17.2020 1/2 Ag/Ab 8:52 AM CDT combination Transcribed [place] e/Time: immunoassay, and 02.17.2020 8:52 AM HTLV I/II Ab, are CDTElectro nically unremarkable, for Signed By: CYNTHIA KHALIL this patient, at MD ROBER - 1 3446 on this time. 02.17.2020 8:52 AM C MD PittmanTMP HIV-1 STEPHANIE PATH UGWCIM2671-64-74 13:52:02 Test Item Value Reference Range Interpretation Comments HIV-1 STEPHANIE Path Non Reactive Interp (test for HIV-1 Assay code = 9017) by Nucleic Acid ____CYNTHIA RICHTER MD - Testing. 22247Ssjzwpad b y: MD Julito LEZAMA 68270Vuznlkul D ate/Time: 02.17.2020 8:52 AM CDT Transcribed [place] e/Time: 02.17.2020 8:52 AM CDTElectronical ly Signed By: CYNTHIA DUTTON MD - [id number] on 02.16 8:52 AM C MD PittmanInfectious Disease Sbimjpai7326-75-50 06:11:09 Test Item Value Reference Range Interpretation Comments HBsAg. (test Non Reactive Non Reactive Performed at: code = 5747) [facility] Egbpgc[address] [place], [place] [address] HBcAb. (test Non Reactive Non Reactive Performed at: code = 5742) [facility] Mfqcxk241 [address] [place], [place] [address] HCVAb. (test Non Reactive Non Reactive Performed at: code = 5762) [facility] [place] [address] [address] [place], [place] [address] HIV 1/2 Ag & Non Reactive Non Reactive Performed at:MD Mccall [facility] (test code = Donor Wkmhxs739 5 9348) [place], [place] [address] HTLV I/II Ab. Non Reactive Non Reactive Performed at:Barron Escobar (test code = [facility]) [facility] Rmxmiw279 [address] [place], [place] [address] PAULIE (test code Pre-SCT eval, pt is = PAULIE) requesting 02/13 MD PittmanHIV 1 [id number] 06:05:42 Test Item Value Reference Range Interpretation Comments HIV-1 STEPHANIE (test Non Reactive Non Reactive Performed at : code = 5797) [facility] [address] [place] [address] MD PittmanCMV Ab IgG+IgM Path Dedbcr6949-40-48 18:46:01CMV Panel PRPositive IgG with low IgM suggests previous infection. IVIG can give false positivity.High titers of IgG can give false negative IgM. Therefore, active disease ispossible but less likely with this pattern.Reviewed and Electronically signed by Pathologist:Kain Qiu MD, PhD #[id number] Comment: Test performed by an immunoassay intended for the qualitative detection of IgG and IgM antibodiesto Cytomegalovirus (CMV) in human serum. When equivocal results are obtained, another specimen should be ixnvnfcdp04-86 days later. KAIN QIU MD,PhD - [id number] by: KAIN QIU MD, PhD - [id number] Date/Time: 02.15.2020 13:46 PM CDT Transcribed Date/Time: 02.15.2020 13:46 PM CDTElectronically Signed By: KAIN QIU MD, PhD - [id number] on 02.15.2020 13:46 PM [facility] [place] RPR Path Sbzwsmcvinlkvs4669-12-77 14:14:08 Test Item Value Reference Interpretation Comments Range TMP RPR Path The Rapid Interpretation Plasma Reagin (test code = (RPR) assay is FLEUR MIN 451715) negative. If a MD ROBER - syphilis 72570Czcqgmlu b y: infection is CYNTHIA MIN MD ROBER - suspected, [id number] please perform Date/Time: a Treponemal 9:14 AM CDT specific Transcribed [place] e/Time: screening 02.15.2020 9:14 AM assay. CDTElectronical ly Signed By: MILENA RICHTER MD - [id number] on 02.15.2020 9:14 AM C MD PittmanCMV Ab IgG+ZjF8720-63-65 09:09:47 Test Item Value Reference Range Interpretation Comments CMV IgM Int (test code = 5219) Negative Negative CMV IgG Int (test code = 5217) Positive Negative A Lab Interpretation (test code = Abnormal 92470-4) MD [facility]eno Plasma Reagin (RPR) [Syphilis SCREENING]2020-02-15 05:02:04 Test Item Value Reference Range Interpretation Comments RPR Screening (test code = Non Reactive Non Reactive 996420) [facility] Lbdcax1991-87-38 15:41:19 Test Item Value Reference Range Interpretation Comments CBC Path Leukopenia with Interp (test increased circulating code = 5181) granulocytic and XI erythroid precursors, Francisco J QIU MD - and tear drop red blood 1130 5Dictated by: cells in a previously RUBY Burnham MD - 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 Trans cribed Date/Time: 02.14.2020 10:4 1 AM CDTElectronical ly Signed By: RUBY QIU MD - [id number] on 02.14.2020 10:4 1 AM PAULIE (test Differential is referred code = PAULIE) to Pathologist for review. MD PittmanPreliminary Bmqzykaghamo7616-66-31 13:52:28 Test Item Value Reference Range Interpretation [...] 9654) Lab Interpretation Abnormal (test code = 85892-8) MD PittmanHLA Antibody Ytrf0973-70-99 20:02:06 Test Item Value Reference Range Interpretation Comments Specimen Received Yes (test code = 8893) PAULIE (test code = PAULIE) Is this antibody test for 'pre' or 'post' apheresis or drug treatment monitoring?->No MD PittmanConfirm XYAZb1957 18:54:31 Test Item Value Reference Range Interpretation Comments ABORh Confirm. (test code = 882-1) A POS MD DonSedbnfdmFLL9709-57-07 18:47:34 Test Item Value Reference Range Interpretation Comments TSH (test code = 7578) 3.92 0.27- 4.20 mcunit/mL MD PittmanVitamin B12 Nyblm4766-73-10 18:23:23 Test Item Value Reference Range Interpretation Comments Vitamin B12 Lvl (test code = 8017) 492 pg/mL 211-946 MD PittmanCmicwrblT07258-64-06 18:23:22 Test Item Value Reference Range Interpretation Comments T4 (test code = 7493) 9.6 4.5- 11.7 mcg/dL MD PittmanErythropoietin Cuzcp7529-86-48 18:20:11 Test Item Value Reference Range Interpretation Comments Erythropo Lvl (test code = 5523) 129.2 2.6- 18.5 mIU/mL H Lab Interpretation (test code = Abnormal 62837-9) MD PittmanFolate Dzpqc6500-01-89 18:07:32 Test Item Value Reference Range Interpretation Comments Folate Lvl (test 6.1 ng/mL 4.8-24.2 Hemolyzed s pecimens with code = 5625) Hemolysis Index >30.0 (30 mg/dL or visibl e hemolysis) may cause interference an d give falsely high re sults. MD PittmanResearch Protocol [id number] 17:54:29 Test Item Value Reference Range Interpretation Comments Research Prot (test code = 7189) 241352 MD JluwricyPGJAYHJVIX0380-08-19 14:19:002.3[facility] FxyhwwwWIMSTQFEKF9021-84-12 14:19:003.31[facility] EabusooZCVPKQWJJL9601-03-47 14:19:008.7[facility] PGNWHJAVQB5286-33-65 14:19:0026.7[facility] YejjdslOAURWIKLCC4909-63-83 14:19:00 80.8[facility] MoaejsfLBMVCJJYTR7578-69-12 14:19:00 Test Item Value Reference Range Interpretation Comments MCH (test code = MCH) 26.4 pg 27.0-31.0 [facility] EwwhhzxSWEUWPDDHS3631-11-18 14:19:0032.7[facility]annHEMATOLOGY 2019-12-16 14:19:0022.7[facility] TaogpkxIFCVAJAFVX3514-73-98 14:19:56622Otiecmml UhzjmneVOUKAYUYHX9952-34-67 14:19:006.9[facility] UcndfhiBVUTZCDEKX5807-25-27 14:19:0064.0[facility] HmfhinlPQBILNUMKA7654-95-98 14:19:002.0[facility] GKRNGXTPTB3077-60-60 14:19:0022.0[facility] SxytftwBJFTLUPZDU7744-73-50 14:19:00 8.0[facility] MxqafvcOGFVPIFBBG3280-91-95 14:19:003.0[facility]annHEMATOLOGY 2019-12-16 14:19:001.0[facility] GaywuhhDOMOVYJYDG6794-82-10 14:19:001.5[facility] RivkohaKGLZAEAARR7071-14-94 14:19:000.5[facility] ZiirdbyUHURANYSPV7205-73-77 14:19:000.2[facility] IiaeieyYKCYKDZYXH8335-08-67 14:19:000.1[facility] JDQHMOXTHX9154-22-92 14:19:000.0[facility] IztiyclFQYYYFZDWX7187-44-78 14:19:001 [facility] PkiiqogPBMJQFECQI5634-76-64 14:19:00 Test Item Value Reference Range Interpretation Comments Tot Cell Ct (test code = Tot Cell Ct) 100 1 [facility] VufcthoSKKKBFUGFI9622-14-03 14:19:001+ *ABN*(12/16/19 8:19 AM)[facility] DeqgsshRDFLTQUYVJ9494-68-04 14:19:006.0[facility]annURINE AND AUTZB7503-69-62 15:18:00Negative (10/22/19 9:18 AM)[facility] HermannCHEM NHRUV3578-18-36 12:38:00 98[facility] HermannCHEM LPHCU8962-15-38 12:38:0024[facility]annCHEM PANEL 2019-10-22 12:38:001.40[facility]annCHEM KYYLI6484-09-23 12:38:32462Jvmgharz HermannCHEM RIXYG3815-45-42 12:38:004.0[facility]annCHEM SUOQM9872-11-54 12:38:01495Xoofnyil HermannCHEM YKQQE0294-10-35 12:38:0026[facility] HermannCHEM OWYWY7503-52-92 12:38:0011.0[facility]annCHEM PCPLO7795-86-49 12:38:009.1 [facility]annCHEM CODGM3171-40-25 12:38:0053[facility]annHEMATOLOGY 2019-10-22 12:38:002.0[facility] PstyvwjCGCZVLOQFS2418-87-76 12:38:003.06[facility] TnfcohqAZZWJZBFEM3353-34-29 12:38:008.1[facility] ZsllghmXWXMRHOFHL5448-93-05 12:38:0024.0[facility] YcqxgdcPDUQNSETGW8278-15-81 12:38:0078.4[facility] SWWLIRLJKI3057-11-83 12:38:00 Test Item Value Reference Range Interpretation Comments MCH (test code = MCH) 26.3 pg 27.0-31.0 [facility] XvjxkqlRWQRASOTTN4551-89-60 12:38:0033.6[facility] HermannHEMATOLOGY 2019-10-22 12:38:0021.5[facility] CwfbcvgFYTBBOGLJH2337-58-18 12:38:51824Wbzuqmnr UxtuzbiZEHLKPDBAB5884-08-25 12:38:007.5[facility] WetdlhwKFCJHHOQWM5244-11-11 12:38:0056.6[facility] QmtztovWTYKDBWUZI7951-28-85 12:38:0022.0[facility] NXKMJRBYJA5544-89-47 12:38:0012.4[facility] SwptpzhENZJHHXNDF1625-61-19 12:38:00 7.2[facility] EoafskfEWAOJZFDNI4342-67-04 12:38:001.8[facility] HermannHEMATOLOGY 2019-10-22 12:38:001.1[facility] EyrsrigNOMLFAXGFI5896-91-52 12:38:000.4[facility] FimwhmwFJFKFYDDXI2326-92-42 12:38:000.3[facility] QyszrlyGGVNMNEHWR2452-44-02 12:38:000.1[facility] SdznxfbXDWIIEYNOE4213-16-14 12:38:001+ *ABN*(10/22/19 6:38 AM)[facility] DkextagZFURYUZEWM3823-22-89 12:38:00Moderate *ABN*(10/22/19 6:38 AM) [facility] AgwrwdlLDYPJCHNVP9558-55-00 12:38:00Moderate *ABN*(10/22/19 6:38 AM) [facility] BxjxmtgJEOMVQSWGD0895-63-96 12:38:00Moderate *ABN*(10/22/19 6:38 AM) [facility] BdkqbydRWWTRFWVZK8885-44-87 12:38:00Negative *NA*(10/22/19 6:38 AM) [facility] HermannMOLECULAR KODJCIERED9103-05-99 22:52:00Nasophrngl Swb *NA*(10/21/19 4:52 PM)[facility] HermannMOLECULAR ASMREKNCMF1012-51-64 22:52:00 Negative *NA*(10/21/19 4:52 PM)[facility] HermannMOLECULAR BMDJXDFEDS3727-26-03 22:52:00Negative *NA*(10/21/19 4:52 PM)[facility] HermannMOLECULAR DIAGNOSTIC 2019-10-21 22:52:00Negative *NA*(10/21/19 4:52 PM)[facility] HermannCHEM PANEL 2019-10-21 15:29:18855Jzvasqns HermannCHEM CLSZZ4186-49-62 15:29:0021[facility] HermannCHEM MZIDI9290-05-95 15:29:001.40[facility] HermannCHEM ZNYSA8658-33-92 15:29:51465Udpcbvhb HermannCHEM BMKGM4335-56-76 15:29:004.0[facility] HermannCHEM GUBXN6516-71-89 15:29:06014Vukbbymp HermannCHEM PQBMM4447-10-16 15:29:0023 [facility]annCHEM EHKNG3137-97-70 15:29:008.6[facility] HermannCHEM PANEL 2019-10-21 15:29:0053[facility] HermannCHEM RDCHL7047-85-04 15:29:0012.0[facility] MlavjywZIWMBPAXDA8489-32-70 15:29:002.4[facility] MugtqjhMLPAKORYVT6822-97-64 15:29:002.74[facility] ZkmmfqqIZLZFIQDGJ5148-98-59 15:29:007.2[facility] OZNYKDCTOB9854-06-98 15:29:0021.4[facility] UplwqmiXRPUDZODPX1950-12-93 15:29:00 78.2[facility] HhrjxwtKYFRVYRDMF5641-26-51 15:29:00 Test Item Value Reference Range Interpretation Comments MCH (test code = MCH) 26.3 pg 27.0-31.0 [facility] AzlxrghRWCKMAPVYA1732-70-41 15:29:0033.7[facility] HermannHEMATOLOGY 2019-10-21 15:29:0020.9[facility] PpskduzWUNOVNFZXE0863-71-96 15:29:99557Qwbxvxun BccxvkcXHIGMSLJXH7009-13-39 15:29:007.8[facility] WijbnmwOJFZOOTAXH2830-98-47 15:29:00Normal (10/21/19 9:29 AM)[facility] VwjlbbaIJPLFMVBGM1370-10-32 15:29:00 73.5[facility] TbiwpznOHUGOOJWVE4349-25-03 15:29:0012.3[facility] HermannHEMATOLOGY 2019-10-21 15:29:007.9[facility] McgwqjqNNUXCLKFFX5772-02-12 15:29:004.5[facility] FutaclhVCQTZLPQOX9221-44-24 15:29:001.8[facility] KheggqsAGECKLABRN3199-94-94 15:29:001.7[facility] VhblnnmAGXFIHHXPO9852-28-92 15:29:000.3[facility] TAOOPNWMAB4048-76-38 15:29:000.2[facility] RttchhiTZWTLAFCSS7469-64-45 15:29:000.1 [facility] CfndqzeDJCLPFERHV7476-15-10 15:29:000.0[facility] HermannHEMATOLOGY 2019-10-21 15:29:001+ *ABN*(10/21/19 9:29 AM)[facility] IacfjkcRZHFLZODJB0810-15-09 15:29:00Moderate *ABN*(10/21/19 9:29 AM)[facility] HermannANEMIA CSWVE6958-14-37 11:17:39170Mtgualtd HermannCHEM BVIXC7009-57-54 11:17:009.6[facility] HermannCHEM LVXBG9158-14-77 11:17:54835Fxqufpbg EycjnhpULDFYAKOIC0196-53-97 11:17:005.9 [facility]annANEMIA BNEDB1200-38-59 22:21:0069[facility] HermannANEMIA STUDY 2019-10-20 22:21:07754Kydebqif HermannANEMIA JKPBQ5072-09-21 22:21:20408Ctpphpeg HermannANEMIA ZNRXZ3547-89-32 22:21:0024[facility] HermannANEMIA IUJYZ9157-86-32 22:21:56814Ptwlvruh HermannBLOOD BANK YXCBZLY1085-24-18 22:21:00Negative (10/20/19 4:21 PM)[facility]UR[facility] AND CDAMN2687-51-62 22:21:00Clear (10/20/19 4:21 PM)[facility] AND IQMIF1469-36-97 22:21:00 Test Item Value Reference Range Interpretation Comments UA Spec Grav (test code = UA Spec 1.016 1 Grav) [facility] MTBYO0940-60-04 22:21:00 Test Item Value Reference Range Interpretation Comments UA pH (test code = UA pH) 5.0 1 5.0-8.0 [facility] VHSJC8345-91-17 22:21:00Negative *NA*(10/20/19 4:21 PM) [facility] QYBMZ3757-35-56 22:21:00Negative (10/20/19 4:21 PM) [facility] SYLRF8406-15-90 22:21:002.0[facility] AND XZBWS9413-85-40 22:21:00Negative (10/20/19 4:21 PM)[facility] AND DZLDJ5891-46-41 22:21:00Negative (10/20/19 4:21 PM)[facility] LVAGB3372-70-47 22:21:00<1[facility] AND RLTVJ8943-81-27 22:21:00 <1[facility] HermannBLOOD BANK QEYOULK4716-45-86 20:45:00Product available 4(10/20/19 2:45 PM)[facility] HermannCHEM YRPTE9691-15-85 11:02:001.10[facility] HermannCHEM UQCTF5195-05-34 11:02:0072[facility] CvodefaGTGMPUWGXD1558-89-53 11:02:006.9[facility] YxeluupTEKYFGSQBD9383-11-36 19:11:00 Test Item Value Reference Range Interpretation Comments POC Activated Clotting Time (test code 316 s = POC Activated Clotting Time) [facility] GadqealIPPZOVYVAH8310-90-62 18:49:00 Test Item Value Reference Range Interpretation Comments POC Activated Clotting Time (test code 329 s = POC Activated Clotting Time) [facility] OmsoizkSPWFAZDOQX6407-96-96 15:11:002.3[facility] HermannHEMATOLOGY 2019-10-19 15:11:003.02[facility] XacyzrgUZJOIFQRBH4635-02-95 15:11:0023.5[facility] GyfasiyQLMDUEVRSK8042-28-41 15:11:0077.8[facility] YrijnewVCPOQQKDCI9332-75-07 15:11:00 Test Item Value Reference Range Interpretation Comments MCH (test code = MCH) 25.4 pg 27.0-31.0 [facility] FhutjydMANGDGDWMW2982-05-29 15:11:0032.6[facility] HermannHEMATOLOGY 2019-10-19 15:11:0022.0[facility] SmfvzflXMLHBWEYED1293-57-59 15:11:19545Arpvhuuj KcshyckMEMMPLRQYA8169-39-61 15:11:008.0[facility] NnakxyqZZNUCDMVGA7841-31-63 15:11:00Normal (10/19/19 9:11 AM)[facility] HkidoyrHIPRWPVNLI4756-78-92 15:11:00 69.9[facility] ZbjtcgeHJHRWGYOLI0446-08-85 15:11:0018.6[facility] HermannHEMATOLOGY 2019-10-19 15:11:007.6[facility] SjutqibTTLCMKCWJQ8146-09-74 15:11:002.2[facility] WiajfbzEYHYFHUSBY5413-11-28 15:11:001.7[facility] SdoghzfQGTBEVPCVS0999-64-83 15:11:001.6[facility] JvetyknKWIFWGJVVD0252-65-41 15:11:000.4[facility] EYVABKVNOD1221-74-38 15:11:000.2[facility] LskfwyxVLHYCAPTIJ6733-84-69 15:11:000.1 [facility] BlxxcigGPVNBZVFHB9935-52-37 15:11:000.0[facility] HermannHEMATOLOGY 2019-10-19 15:11:001+ *ABN*(10/19/19 9:11 AM)[facility] IbrjcjtVLDTQXYCXV4800-11-37 15:11:001+ *ABN*(10/19/19 9:11 AM)[facility] ZztfeyeKGOGIPWKJD0955-18-80 15:11:00 Moderate *ABN*(10/19/19 9:11 AM)[facility] EoqqubkKEDGJWLWCHYS2098-39-88 15:03:00 138[facility] LznqiydWHIRCKNUSWYE2547-81-43 15:03:004.3[facility] KTQRIQZOKTDY1825-10-16 15:03:21963Ljijfptk OkofalmOBWQNGLEUHXQ9476-91-39 15:03:0026[facility] AafiwtqKCSENQUVBFNT6262-12-14 15:03:0018[facility] NIUTOUHXDURT2642-92-20 15:03:001.2[facility] BifeecnPETCHVDMVUMO6874-75-56 15:03:18802Nrwkxnji RmzxedjGWVNOTZJTVWF6067-43-05 15:03:001.19[facility] LSCZVKFXNABW0096-57-59 15:03:007.5[facility] SevlvqgYTFZUFHIZRJJ2266-17-89 15:03:0022.0[facility] VjqojraWLMEXTIGNCMO4305-97-79 15:03:005.0[facility] Urinalysis complete W Reflex Culture panel - Atdgd6700-56-93 07:24:00 Test Item Value Reference Range Interpretation Comments Color of Urine by Auto (test yellow code = 84558-8) Appearance of Urine (test code clear clear = 5767-9) Glucose [Presence] in Urine by negative negative Automated test strip (test code = 13034-6) Bilirubin.total [Mass/volume] negative negative in Urine (test code = 1978-6) Ketones [Mass/volume] in Urine negative negative by Automated test strip (test code = 99409-4) Specific gravity of Urine by 1.021 1.003-1.030 Automated test strip (test code = 19034-8) blood urine (test code = blood negative negative urine) pH of Urine (test code = 5.500 5-9 2756-5) protein urine (UA) (test code = trace negative protein urine (UA)) Urobilinogen [Presence] in normal 0.2-1.0 Urine (test code = 75512-3) Nitrite [Presence] in Urine by negative negative Test strip (test code = 5802-4) Leukocyte esterase [Presence] negative negative in Urine by Automated test strip (test code = 71522-3) Erythrocytes [#/volume] in <1 0-5 Urine by Automated count (test code = 798-9) Leukocytes [#/area] in Urine <1 0-5 sediment by Automated count (test code = 68636-1) Epithelial cells [Presence] in <1 0-5 Urine sediment by Light microscopy (test code = 30022-0) Bacteria identified in Urine by none detected none detect Culture (test code = 630-4) Casts [#/area] in Urine none detected none detect sediment by Automated count (test code = 36997-0) urine culture added? (test code no = urine culture added?) [facility] W Auto Differential panel - Rucrt1520-72-42 07:24:00 Test Item Value Reference Range Interpretation [...] fL 78-96 [Entitic volume] (test code = 78762-6) Erythrocyte mean corpuscular 26.1 pg 26.8-33.4 L hemoglobin [Entitic mass] (test code = 25258-5) mean corpuscular HGB conc (test 30.6 g/dL 32.3-36.7 L code = mean corpuscular HGB conc) red cell distribution width (test 22.0 % 11.6-15.4 H code = red cell distribution width) Platelets [#/volume] in Blood (test 312 K/uL 115-328 code = 83317-8) Platelet mean volume [Entitic 7.5 fL 8.4-11.8 L volume] in Blood (test code = 15111-5) Neutrophils.band form/100 58.1 % 44.7-82.4 leukocytes in Blood (test code = 74078-1) Lymphocytes/100 leukocytes in Body 28.6 % 10.0-50.0 fluid (test code = 68862-2) Monocytes/100 leukocytes in Blood 7.4 % 3.9-13.4 by Automated count (test code = 5905-5) Eosinophils/100 leukocytes in Blood 4.4 % 0.0-6.43 by Automated count (test code = 713-8) Basophils/100 leukocytes in Blood 1.5 % 0.0-0.72 H by Automated count (test code = 706-2) [facility], fmswk7339-21-09 07:24:00 NeutrophilsBandLymphocyteAtypical LymphMonocyteEosinophilBasophilPlatelet EstimatePlatelet MorphologyAnisocytosisGiant PlateletsParkwood Behavioral Health System Comprehensive metabolic 2000 panel - Serum or Ojvojm3135-81-40 07:24:00 Test Item Value Reference Range Interpretation [...] Serum or Plasma (test code = 6768-6) [facility] SystemLipid 1996 panel - Serum or Mjykfg9534-81-88 07:24:00 Test Item Value Reference Range Interpretation Comments cholesterol level (test code = 104 mg/dL 150-200 L cholesterol level) triglycerides level (test code = 157 mg/dL <150 H triglycerides level) HDL cholesterol (test code = HDL 22 mg/dL >55 L cholesterol) LDL cholesterol direct (test code = 61 mg/dL <100 LDL cholesterol direct) cholesterol risk ratio (test code = 4.727 cholesterol risk ratio) [facility] SystemHemoglobin A1c [Mass/volume] in Guuiy4751-67-21 07:24:00 Test Item Value Reference Range Interpretation Comments Hemoglobin A1c in Blood (test code = 4.9 % 4.0-6.0 64518-6) [facility] SystemThyrotropin [Units/volume] in Serum or Dsmhfi2571-42-66 07:24:00 Test Item Value Reference Range Interpretation Comments Thyrotropin [Units/volume] in 2.62 uIU/mL 0.36-3.74 Serum or Plasma (test code = 3016-3) [facility] SystemPSA, serum or tlsrar3340-70-11 07:24:00 Test Item Value Reference Range Interpretation Comments total prostate screening (test 0.35 NG/mL 0.0-4.00 code = total prostate screening) [facility]
[2020-07-03] MEDS ORDERED: NA CHLORIDE 0.9% 500 ML ONE ×2 (09:22→11:47)
[2020-07-03 09:28] VITALS: O2SAT 100; BMI 26.2
[2020-07-03 14:45] VITALS: BP 134/71; TEMP 97.8
[2020-07-03 16:31] LABS: Hematocrit 25.2 % (39.6-49.0)
== END 2020-07-03 17:00 | disposition home or self-care (01) ==
LOC: DS 08:34
PROVIDERS: ATTEND Internal Medicine Medical Oncology
DX: D59.9 Acquired hemolytic anemia, unspecified (principal); D75.81 Myelofibrosis; R53.83 Other fatigue
CPT/HCPCS: 36415; 36430; 85014; 85018; 86850; 86900; 86901; 86922; J7040; P9040

== ENCOUNTER 2021-09-12 12:09 | Emergency (ER) | payer BC, OTHER ==
[2021-09-12 12:57] LABS: Absolute Lymphocytes (CBC) 0.2 K/uL (0.7-4.9); Basophils % 0.2 % (0-1.3); Lymphocytes % 3.7 % (15.3-44.8); MPV 11.1 fL (7.6-11.3); RBC Red Blood Cell Count 3.49 M/uL (4.33-5.43)
[2021-09-12 13:08] LABS: Protime INR 1.43
[2021-09-12] MEDS ORDERED: NA CHLORIDE 0.9% 1,000 ML ONE ×2 (13:08→13:59)
--- NOTE | 2021-09-12 13:10 | RAD REPORT ---
EXAM DESCRIPTION: CT - CTHCSPWOC - 09/12/2021 12:53 pm CLINICAL HISTORY: Trauma, head and neck injury. fall, head injury, neck pain, on plavix COMPARISON: No comparisons TECHNIQUE: Axial 5 mm thick images of the head were obtained. Axial 2 mm thick images of the cervical spine were obtained with sagittal and coronal reconstruction images generated and reviewed. All CT scans are performed using dose optimization technique as appropriate and may include automated exposure control or mA/KV adjustment according to patient size. FINDINGS: CT HEAD WITHOUT CONTRAST: Tiny subdural hematoma along the left aspect of the cerebral falx. It measures under 5 millimeters in maximal thickness. Discussed with Dr. Felton by Dr. Lora at 1302 on 09/12/21. No hydrocephalus. No mid line shift. No significant white matter disease identified. The paranasal sinuses and mastoids are clear.The calvarium is intact. Left forehead hematoma. CT CERVICAL SPINE WITHOUT CONTRAST: No fracture or subluxation.No prevertebral soft tissues swelling is identified. Patchy airspace disea se in the upper lungs. Mild cervical spondylosis including neural foraminal narrowing bilaterally at C5-6. IMPRESSION: 1. Small subdural hematoma along the left-sided intra cerebral falx. No significant mass effect. Left forehead hematoma but no underlying skull fracture. 2. No fracture traumatic malalignment cervical spine. 3. Poorly defined airspace disease in the upper lungs could reflect sequela of recent pneumonia.
[2021-09-12 13:18] LABS: Troponin (Emerg Dept Use Only) 0.05 ng/mL (0.0-0.045)
[2021-09-12 13:28] LABS: Potassium 2.9 mmol/L (3.5-5.1)
--- NOTE | 2021-09-12 14:00 | RAD REPORT ---
EXAM DESCRIPTION: RAD - Hip Left 2 View - 09/12/2021 1:44 pm CLINICAL HISTORY: PAIN COMPARISON: No comparisons FINDINGS: No acute fracture. No malalignment. No significant focal degenerative changes. IMPRESSION: No acute osseous abnormality involving the left hip.
--- NOTE | 2021-09-12 14:00 | RAD REPORT ---
EXAM DESCRIPTION: RAD - Chest Single View - 09/12/2021 1:44 pm CLINICAL HISTORY: COUGH COMPARISON: Chest Single View dated 06/02/2020 FINDINGS: Lines: None. Lungs: Patchy multifocal bilateral airspace disease. Pleural: No significant pleural effusions or pneumothorax. Cardiac: Cardiomegaly. Bones: No acute fractures. Other: IMPRESSION: Patchy airspace disease bilaterally concerning for multifocal pneumonia, including Covid -19.
--- NOTE | 2021-09-12 14:00 | RAD REPORT ---
EXAM DESCRIPTION: RAD - Pelvis - 09/12/2021 1:44 pm CLINICAL HISTORY: BLUNT TRAUMA COMPARISON: Scrotum Testicles dated 07/06/2020 FINDINGS: No acute fracture. No malalignment. No significant focal degenerative changes. IMPRESSION: No acute osseous abnormality involving the pelvis.
[2021-09-12] MEDS ORDERED: PIPERACIL/TAZO 3.375 GM VIAL IV ONE (14:06)
[2021-09-12] MEDS ORDERED: NA CHLORIDE 0.9% 100 ML ONE (14:08)
[2021-09-12 14:10] LABS: Blood Morphology Comment NOT SEEN (NOT SEEN); Platelet Estimate DECR; White Blood Cell Scan OK (OK)
--- NOTE | 2021-09-12 15:12 | ER ---
Nurse's Notes [facility] Name: Benito Rader Age: 66 yrs Sex: Male : 1955 Arrival Date: 09/12/2021 Time: 12:14 Bed 4 Private MD: Diagnosis: Traumatic subdural hemorrhage;Pneumonia, unspecified organism;Sepsis, unspecified organism Presentation: 09/12 12:30 Chief complaint: Patient states: Pt fell yesterday hitting head, on plavix. stated ch5 he is altered. Generalized weakness. Coronavirus screen: Vaccine status: Patient reports receiving the 2nd dose of the covid vaccine. Ebola Screen: Patient negative for fever greater than or equal to 101.5 degrees Fahrenheit, and additional compatible Ebola Virus Disease symptoms Patient denies exposure to infectious person. Patient denies travel to an Ebola-affected area in the 21 days before illness onset. An acute neurological deficit is present. Initial Sepsis Screen: Does the patient meet any 2 criteria? RR > 20 per min. Altered Mental Status. HR > 90 bpm. Risk Assessment: Do you want to hurt yourself or someone else? Patient reports no desire to harm self or others. 12:30 Method Of Arrival: Wheelchair 5 12:30 Acuity: SAVANAH 2 ch5 12:30 Care prior to arrival: None. Mechanism of Injury: Fall from standing position. Trauma jl7 event details: Injury occurred in the [facility], Injury occurred: at home. Injury occurred: September 11, 2021. 12:30 Initial Sepsis Screen: Does the patient meet any 2 criteria? RR > 20 per min. Altered jl7 Mental Status. HR > 90 bpm. Yes Does the patient have a suspected source of infection? No. Patient's initial sepsis screen is negative. 12:30 Onset of symptoms was September 12, 2021. jl7 12:30 Trauma event details: Injury occurred at: 23:00. jl7 Triage Assessment: 12:33 The onset of the patients symptoms was more than six hours ago. General: Appears in no ch5 apparent distress. slender, malnourished, Behavior is cooperative. Trauma Activation: Alert Physician: ED Physician; Name: Purnima; Notified At: 12:30; Arrived At: 12:30 Physician: General Surgeon; Name: ; Notified At: 12:30; Arrived At: Physician: Radiology; Name: ; Notified At: 12:30; Arrived At: Physician: Respiratory; Name: ; Notified At: 12:30; Arrived At: Physician: Lab; Name: ; Notified At: 12:30; Arrived At: Historical: - Allergies: 12:33 Bactrim; ch5 - Home Meds: 12:33 Plavix Oral [Active]; allopurinol Oral [Active]; atorvastatin oral [Active]; cetirizine ch5 oral [Active]; metoprolol tartrate 25 mg Oral tab [Active]; olanzapine 5 mg oral tab [Active]; - PMHx: 12:33 had PICC-kidney infections; Hypertension; ch5 - Immunization history:: Adult Immunizations unknown. - Social history:: Smoking status: Patient denies any tobacco usage or history of. - Immunization history: Last tetanus immunization: unknown. - Family history:: not pertinent. - Hospitalizations: : No recent hospitalization is reported. Screenin:30 Abuse screen: Denies threats or abuse. Denies injuries from another. Tuberculosis jl7 screening: No symptoms or risk factors identified. 12:30 Nutritional screening: No deficits noted. Fall Risk Fall in past 12 months (25 points). jl7 IV access (20 points). Total Griffiths Fall Scale indicates No Risk (0-24 pts). Primary Survey: 12:30 NO uncontrolled hemorrhage observed. A: Airway: patent. Breathing/Chest: Respiratory jl7 pattern: regular, Respiratory effort: spontaneous, unlabored, Chest inspection: symmetrical rise and fall of the chest. Circulation: Cardiac rhythm: sinus rhythm Pulses: palpable right radial artery, right dorsalis pedis artery, left radial artery and left dorsalis pedis artery. Skin color: pink, Skin temperature: warm. Disability Alert. Exposure/Environment: All clothing and personal items were removed. Forensic evidence collection is not deemed to be indicated at this time. Items placed in patient belonging bag. There is no evidence of uncontrolled external bleeding. Obvious injury(ies) are noted at this time: Hematoma to left side of forehead. 13:15 Reassessment Airway Airway Patent Breathing/Chest Respiratory pattern Regular jl7 Respiratory effort Spontaneous Unlabored Chest inspection Symmetrical Circulation Heart tones Present Color [place] Temperature Warm Disability Alert. Assessment: 12:30 General: Appears in no apparent distress. uncomfortable, Behavior is calm, cooperative, jl7 appropriate for age. Pain: Denies pain. Neuro: Level of Consciousness is alert, obeys commands, Drowsy. Oriented to person, place, time, situation, Speech is slurred. Cardiovascular: Denies chest pain, Patient's skin is warm and dry. Respiratory: Airway is patent Respiratory effort is even, unlabored, Respiratory pattern is symmetrical, tachypnea. Derm: Skin is pink, warm \T\ dry. Musculoskeletal: Hematoma to left side of forehead. 13:30 Reassessment: Patient appears in no apparent distress at this time. No changes from jl7 previously documented assessment. Patient and/or family updated on plan of care and expected duration. Pain level reassessed. Patient is alert, oriented x 3, equal unlabored respirations, skin warm/dry/pink. 14:30 Reassessment: Patient appears in no apparent distress at this time. No changes from jl7 previously documented assessment. Patient and/or family updated on plan of care and expected duration. Pain level reassessed. Patient is alert, oriented x 3, equal unlabored respirations, skin warm/dry/pink. 15:30 Reassessment: Patient appears in no apparent distress at this time. No changes from jl7 previously documented assessment. Patient and/or family updated on plan of care and expected duration. Pain level reassessed. Patient is alert, oriented x 3, equal unlabored respirations, skin warm/dry/pink. 16:30 Reassessment: Patient appears in no apparent distress at this time. No changes from jl7 previously documented assessment. Patient and/or family updated on plan of care and expected duration. Pain level reassessed. Patient is alert, oriented x 3, equal unlabored respirations, skin warm/dry/pink. 17:00 Reassessment: [facility] at bedside to transport pt. jl7 Vital Signs: 12:30 BP 90 / 60; Pulse 101; Resp 25; Temp 98.1; Pulse Ox 88% on R/A; Weight 45.36 kg; Height ch5 5 ft. 7 in. (170.18 cm); 12:30 BP 86 / 55; Pulse 102; Resp 15; Pulse Ox 93% on 2 lpm AK; jl7 13:00 BP 85 / 52; Pulse 96; Resp 25; Pulse Ox 94% ; jl7 13:30 BP 96 / 58; Pulse 94; Resp 27; Pulse Ox 94% ; jl7 14:00 BP 81 / 56; Pulse 91; Resp 25; Pulse Ox 96% ; jl7 14:30 BP 93 / 56; Pulse 92; Resp 24; Pulse Ox 95% ; jl7 15:00 BP 88 / 47; Pulse 92; Resp 25; Pulse Ox 93% on 2 lpm NC; jl7 15:30 BP 93 / 55; Pulse 90; Resp 24; Pulse Ox 92% ; jl7 16:00 BP 89 / 54; Pulse 91; Resp 24; Pulse Ox 96% ; jl7 16:15 BP 95 / 52; Pulse 91; Resp 24; Pulse Ox 93% ; jl7 16:57 BP 97 / 58; Pulse 94; Resp 24; Pulse Ox 91% on 2 lpm NC; jl7 12:30 Body Mass Index 15.66 (45.36 kg, 170.18 cm) ch5 Priscila Coma Score: 12:31 Eye Response: spontaneous(4). Verbal Response: oriented(5). Motor Response: obeys jl7 commands(6). Total: 15. 13:30 Eye Response: spontaneous(4). Verbal Response: oriented(5). Motor Response: obeys jl7 commands(6). Total: 15. 14:17 Eye Response: spontaneous(4). Verbal Response: oriented(5). Motor Response: obeys rn commands(6). Total: 15. 14:29 Eye Response: spontaneous(4). Verbal Response: oriented(5). Motor Response: obeys jl7 commands(6). Total: 15. 15:09 Eye Response: spontaneous(4). Verbal Response: oriented(5). Motor Response: obeys rn commands(6). Total: 15. 15:29 Eye Response: spontaneous(4). Verbal Response: oriented(5). Motor Response: obeys jl7 commands(6). Total: 15. 16:15 Eye Response: spontaneous(4). Verbal Response: oriented(5). Motor Response: obeys jl7 commands(6). Total: 15. Trauma Score (Adult): 12:31 Eye Response: spontaneous(1); Verbal Response: oriented(1); Motor Response: obeys jl7 commands(2); Systolic BP: > 89 mm Hg(4); Respiratory Rate: 10 to 29 per min(4); Priscila Score: 15; Trauma Score: 12 ED Course: 12:14 Patient arrived in ED. ds1 12:26 Fatmata Bergman, RN is Primary Nurse. jl7 12:30 Michael Felton MD is Attending Physician. rn 12:30 Patient has correct armband on for positive identification. Placed in gown. Bed in low jl7 position. Call light in reach. Side rails up X 1. 12:30 hall monitor on. Pulse ox on. NIBP on. jl7 12:30 Patient maintains SpO2 saturation greater than 95% on room air. Thermoregulation: warm jl7 blanket given to patient. 12:33 Triage completed. ch5 12:33 Arm band placed on right wrist. ch5 12:45 Initial lab(s) drawn, by me, sent to lab. First set of blood cultures drawn by me, EKG jl7 done, by ED staff, reviewed by Michael Felton MD COVID swab sent to lab. Inserted saline lock: 20 gauge in right forearm, using aseptic technique. Blood collected. 12:50 Second set of blood cultures drawn by ED staff. Inserted saline lock: 20 gauge in left jl7 forearm, using aseptic technique. Blood collected. 12:53 CT Head C Spine In Process Unspecified. EDMS 13:44 XRAY Pelvis In Process Unspecified. EDMS 13:44 XRAY Hip LEFT 2 view In Process Unspecified. EDMS 13:44 XRAY Chest (1 view) In Process Unspecified. EDMS 15:08 initiated transfer to [facility]. mt 15:31 contacted [facility] to request transport- 1 hour ETA. mt 17:15 No provider procedures requiring assistance completed. Patient transferred, IV remains jl7 in place. intact, No redness/swelling at site. Administered Medications: 13:04 Drug: NS 0.9% 1000 ml Route: IV; Rate: 1000 ml; Site: left forearm; jt3 13:45 Follow up: Response: No adverse reaction; IV Status: Completed infusion; IV Intake: jl7 1000ml 13:43 Drug: NS 0.9% 1000 ml Route: IV; Rate: 1000 ml; Site: left wrist; jl7 14:30 Follow up: Response: No adverse reaction; IV Status: Completed infusion; IV Intake: jl7 1000ml 13:45 Drug: Zosyn (piperacillin-tazobactam) 3.375 grams Route: IVPB; Infused Over: 60 mins; jl7 Site: right forearm; 14:45 Follow up: Response: No adverse reaction; IV Status: Completed infusion jl7 15:30 Drug: NS 0.9% 1000 ml Route: IV; Rate: 125 ml/hr; Site: right forearm; jl7 16:30 Follow up: IV Status: Infusion continued upon transfer jl7 15:30 Drug: NS 0.9% 1000 ml Route: IV; Rate: 1 bolus; Site: right forearm; jl7 16:29 Follow up: Response: No adverse reaction; IV Status: Completed infusion; IV Intake: jl7 1000ml Intake: 13:45 IV: 1000ml; Total: 1000ml. jl7 14:30 IV: 1000ml; Total: 2000ml. jl7 16:29 IV: 1000ml; Total: 3000ml. jl7 17:09 PO: 0ml; IV: 3000ml; Tubes: 0ml (); Total: 6000ml. jl7 Output: 17:09 Urine: 0ml; Gastric: 0ml; Stool: 0; EBL: 0ml; Drainage: 0ml; Other: 0; Total: 0ml. jl7 Outcome: 15:12 ER care complete, transfer ordered by . rn 17:15 Transferred by ground EMS to [facility], Transfer form completed. X-rays sent jl7 w/ patient. 17:15 Condition: stable 17:15 Discharge instructions given to patient, family, Instructed on the need for transfer, Demonstrated understanding of instructions. 17:16 Patient's length of stay was not longer than 2 hours. jl7 17:33 Patient left the ED. jl7 Signatures: Dispatcher [employer] [facility] Alma Giles ds1 Michael Felton MD MD rn Leal, Jahala, RN RN jl7 Lina Palencia mt, Christopher, RN RN ch5 Flynn Tate RN RN jt3 Corrections: (The following items were deleted from the chart) 16:59 12:30 BP 86 / 55; Pulse 102bpm; Resp 15bpm; Pulse Ox 93%; jl7 jl7 16:59 15:00 BP 88 / 47; Pulse 92bpm; Resp 25bpm; Pulse Ox 93% RA; jl7 jl7
--- NOTE | 2021-09-12 15:12 | EDPHYS ---
Physician Documentation [facility] Name: Benito Rader Age: 66 yrs Sex: Male : 1955 Arrival Date: 09/12/2021 Time: 12:14 Bed 4 Private MD: ED Physician Michael Felton HPI: 09/12 14:17 This 66 yrs old Male presents to ER via Wheelchair with complaints of rn Weakness, head injury, fall Injury. 14:17 The patient or guardian reports injury, pain, swelling. The complaints affect the rn forehead. 14:17 Context of injury: The problem was sustained at home, resulted from a fall. Onset: The rn symptoms/episode began/occurred last night. Associated signs and symptoms: Loss of consciousness: This patient experience a loss of consciousness, Pertinent positives: loss of conciousness, dazed, headache, Pertinent negatives: double vision, neck pain, seizure, vomiting, weakness in extremities, generalized weakness. Severity of symptoms: At their worst the symptoms were mild, in the emergency department the symptoms are unchanged. The patient has not experienced similar symptoms in the past. The patient has not recently seen a physician. Patient states generalized weakness and fatigue since yesterday, fell last night at home, landed on cement, positive LOC, on blood thinners. Also reports injury to left hip upon falling. Family member reports coughing recently and generalized weakness with poor appetite. Historical: - Allergies: 12:33 Bactrim; ch5 - Home Meds: 12:33 Plavix Oral [Active]; allopurinol Oral [Active]; atorvastatin oral [Active]; cetirizine ch5 oral [Active]; metoprolol tartrate 25 mg Oral tab [Active]; olanzapine 5 mg oral tab [Active]; - PMHx: 12:33 had PICC-kidney infections; Hypertension; ch5 - Immunization history:: Adult Immunizations unknown. - Social history:: Smoking status: Patient denies any tobacco usage or history of. - Immunization history: Last tetanus immunization: unknown. - Family history:: not pertinent. - Hospitalizations: : No recent hospitalization is reported. ROS: 14:17 Constitutional: Negative for fever, chills Eyes: Negative for injury, pain, redness, rn and discharge, ENT: Negative for injury, pain, and discharge, Neck: Negative for injury, pain, and swelling, Cardiovascular: Negative for chest pain, palpitations, and edema, Respiratory: Positive cough Abdomen/GI: Negative for abdominal pain, nausea, vomiting, diarrhea, and constipation, Back: Negative for injury and pain, : Negative for injury, bleeding, discharge, and swelling, MS/Extremity: Positive injury and pain to left hip Skin: Negative for injury, rash, and discoloration, Neuro: Positive headache and generalized weakness, no seizure Exam: 14:17 Constitutional: Thin male, cachectic, mild tachypnea Head/Face: Normocephalic, mild rn left forehead hematoma without laceration or depression underneath. Eyes: Periorbital areas with no swelling, redness, or edema. ENT: No oral injury Neck: No midline cervical tenderness Cardiovascular: Tachycardic, regular. No pulse deficits no pulse deficits. Respiratory: Mild tachypnea, bilateral crackles, no retractions Abdomen/GI: Soft, non-tender Skin: Warm, dry MS/ Extremity: Pulses equal, no cyanosis. Neuro: Awake and alert, GCS 15, oriented to person, place, time, and situation. Cranial nerves II-XII grossly intact. Motor strength 4/5 in all extremities. Sensory grossly intact. Vital Signs: 12:30 BP 90 / 60; Pulse 101; Resp 25; Temp 98.1; Pulse Ox 88% on R/A; Weight 45.36 kg; Height ch5 5 ft. 7 in. (170.18 cm); 12:30 BP 86 / 55; Pulse 102; Resp 15; Pulse Ox 93% on 2 lpm NC; jl7 13:00 BP 85 / 52; Pulse 96; Resp 25; Pulse Ox 94% ; jl7 13:30 BP 96 / 58; Pulse 94; Resp 27; Pulse Ox 94% ; jl7 14:00 BP 81 / 56; Pulse 91; Resp 25; Pulse Ox 96% ; jl7 14:30 BP 93 / 56; Pulse 92; Resp 24; Pulse Ox 95% ; jl7 15:00 BP 88 / 47; Pulse 92; Resp 25; Pulse Ox 93% on 2 lpm NC; jl7 15:30 BP 93 / 55; Pulse 90; Resp 24; Pulse Ox 92% ; jl7 16:00 BP 89 / 54; Pulse 91; Resp 24; Pulse Ox 96% ; jl7 16:15 BP 95 / 52; Pulse 91; Resp 24; Pulse Ox 93% ; jl7 16:57 BP 97 / 58; Pulse 94; Resp 24; Pulse Ox 91% on 2 lpm NC; jl7 12:30 Body Mass Index 15.66 (45.36 kg, 170.18 cm) ch5 [place] Coma Score: 12:31 Eye Response: spontaneous(4). Verbal Response: oriented(5). Motor Response: obeys jl7 commands(6). Total: 15. 13:30 Eye Response: spontaneous(4). Verbal Response: oriented(5). Motor Response: obeys jl7 commands(6). Total: 15. 14:17 Eye Response: spontaneous(4). Verbal Response: oriented(5). Motor Response: obeys rn commands(6). Total: 15. 14:29 Eye Response: spontaneous(4). Verbal Response: oriented(5). Motor Response: obeys jl7 commands(6). Total: 15. 15:09 Eye Response: spontaneous(4). Verbal Response: oriented(5). Motor Response: obeys rn commands(6). Total: 15. 15:29 Eye Response: spontaneous(4). Verbal Response: oriented(5). Motor Response: obeys jl7 commands(6). Total: 15. 16:15 Eye Response: spontaneous(4). Verbal Response: oriented(5). Motor Response: obeys jl7 commands(6). Total: 15. Trauma Score (Adult): 12:31 Eye Response: spontaneous(1); Verbal Response: oriented(1); Motor Response: obeys jl7 commands(2); Systolic BP: > 89 mm Hg(4); Respiratory Rate: 10 to 29 per min(4); Priscila Score: 15; Trauma Score: 12 MDM: 12:30 Patient medically screened. rn 13:16 ED course: CT head shows small subdural along the falx. Still waiting other imaging as rn appears to have a hip injury as well as likely infection possibly pneumonia.. 15:09 Differential diagnosis: Contusion of Hematoma on Intracranial bleed- Concussion rn cerebral contusion. Data reviewed: vital signs, nurses notes, lab test result(s), EKG, radiologic studies, CT scan, plain films, and as a result, I will admit patient. Data interpreted: unix engineer: rate is 95 beats/min, rhythm is normal sinus rhythm, regular, with no ectopy, Interpretation: normal rate, normal rhythm, Pulse oximetry: on room air is 88 %. Interpretation: hypoxia. Plan: O2 by NC applied. Test interpretation: by ED physician or midlevel provider: ECG, plain radiologic studies, X-ray shows bilateral pulmonary infiltrates consistent with multifocal pneumonia. Counseling: I had a detailed discussion with the patient and/or guardian regarding: the historical points, exam findings, and any diagnostic results supporting the discharge/admit diagnosis, lab results, radiology results, the need for further work-up and treatment in the hospital, the need to transfer to another facility, for higher level of care, [facility] does not immediately have the required specialist. Response to treatment: the patient's symptoms have mildly improved after treatment, and as a result, I will admit patient. Admission orders: after a detailed discussion of the patient's condition and case, the admit orders are written by me. ED course: Accepted for transfer to [facility] for traumatic subdural hematoma as well as multifocal pneumonia. Patient feeling better is sitting up using phone. Blood pressure seems to be improving with fluid and is still in the middle of a fluid challenge. Currently has not required any pressors.. 09/12 12:38 Order name: CBC with Diff; Complete Time: 14:44 09/12 12:38 Order name: Basic Metabolic Panel; Complete Time: 13:36 rn 09/12 12:38 Order name: Protime (+inr); Complete Time: 13:36 09/12 12:38 Order name: Ptt, Activated; Complete Time: 13:36 09/12 12:38 Order name: Blood Culture Adult (2) rn 09/12 12:38 Order name: Procalcitonin; Complete Time: 15:07 rn 09/12 12:38 Order name: CT Head C Spine; Complete Time: 13:36 rn 09/12 12:38 Order name: Lactate; Complete Time: 13:36 09/12 12:38 Order name: Troponin (emerg Dept Use Only); Complete Time: 13:36 rn 09/12 12:38 Order name: COVID-19 SARS RT PCR (Document "Date of Onset" if Symptomatic); Complete rn Time: 14:09/12 13:05 Order name: CBC Smear Scan; Complete Time: 14:44 EDMS 09/12 12:38 Order name: IV Start; Complete Time: 12:40 rn 09/12 12:38 Order name: XRAY Pelvis; Complete Time: 14: rn 09/12 12:38 Order name: XRAY Hip LEFT 2 view; Complete Time: 14: rn 09/12 12:38 Order name: XRAY Chest (1 view); Complete Time: 14: rn 09/12 12:38 Order name: EKG; Complete Time: 12:39 rn 09/12 12:38 Order name: EKG - Nurse/Tech; Complete Time: 12:40 rn 09/12 12:38 Order name: Cardiac monitoring; Complete Time: 12:40 rn 09/12 12:38 Order name: O2 Sat Monitoring; Complete Time: 12:40 rn 09/12 12:38 Order name: O2 Per Protocol; Complete Time: 12:40 rn Administered Medications: 13:04 Drug: NS 0.9% 1000 ml Route: IV; Rate: 1000 ml; Site: left forearm; jt3 13:45 Follow up: Response: No adverse reaction; IV Status: Completed infusion; IV Intake: jl7 1000ml 13:43 Drug: NS 0.9% 1000 ml Route: IV; Rate: 1000 ml; Site: left wrist; jl7 14:30 Follow up: Response: No adverse reaction; IV Status: Completed infusion; IV Intake: jl7 1000ml 13:45 Drug: Zosyn (piperacillin-tazobactam) 3.375 grams Route: IVPB; Infused Over: 60 mins; jl7 Site: right forearm; 14:45 Follow up: Response: No adverse reaction; IV Status: Completed infusion jl7 15:30 Drug: NS 0.9% 1000 ml Route: IV; Rate: 125 ml/hr; Site: right forearm; jl7 16:30 Follow up: IV Status: Infusion continued upon transfer jl7 15:30 Drug: NS 0.9% 1000 ml Route: IV; Rate: 1 bolus; Site: right forearm; jl7 16:29 Follow up: Response: No adverse reaction; IV Status: Completed infusion; IV Intake: jl7 1000ml Disposition Summary: 09/12/21 15:12 Transfer Ordered Transfer Location: [facility] rn Reason: Higher level of care rn Condition: Stable rn Problem: new rn Symptoms: have improved rn Accepting Physician: (09/12/21 17:33) jl7 Diagnosis - Traumatic subdural hemorrhage rn - Pneumonia, unspecified organism rn - Sepsis, unspecified organism rn Forms: - Medication Reconciliation Form rn - SBAR form internet assessor time excluding procedures: 15:09 Critical care time: Bedside Care: 35 minutes, Consultation: 2 minutes. Total time: 37 rn minutes Signatures: Dispatcher [employer] EDMS Michael Felton MD MD rn Leal, Jahala RN RN jl7 Morris Tovar RN RN ch5 Flynn Tate RN RN jt3 Corrections: (The following items were deleted from the chart) 17:33 15:12 rn jl7
[2021-09-12] MEDS ORDERED: NA CHLORIDE 0.9% 2,000 ML ONE (15:43)
[2021-09-12 17:44] VITALS: TEMP 98.1
[2021-09-12 17:57] VITALS: BP 97/58; O2SAT 91
--- NOTE | 2021-09-13 07:46 | EKG ---
Test Date: 2021-09-12 Test Time: 12:37:45 Family Assessment Worker: CARLOS MEASUREMENT RESULTS: Intervals: Rate: 104 MT: 158 QRSD: 134 QT: 402 QTc: 528 [place]: P: 29 MT: 158 QRS: -80 T: 41 INTERPRETIVE STATEMENTS: Sinus tachycardia Possible Left atrial enlargement Right bundle branch block Left anterior fascicular block Bifascicular block Abnormal ECG No previous ECG available for comparison Electronically Signed On 09-13-21 07:44:16 CDT by Inder Harding
== END 2021-09-12 17:33 | disposition short-term general hospital (02) ==
LOC: ER 12:09
DX: S06.5X0A Traumatic subdural hemorrhage without loss of consciousness, initial encounter (principal); A41.9 Sepsis, unspecified organism; J18.9 Pneumonia, unspecified organism; W19.XXXA Unspecified fall, initial encounter; Y92.009 Unspecified place in unspecified non-institutional (private) residence as the place of occurrence of the external cause; I10 Essential (primary) hypertension; Z79.01 Long term (current) use of anticoagulants; Z88.1 Allergy status to other antibiotic agents; Z20.822 Contact with and (suspected) exposure to COVID-19
CPT/HCPCS: 96365; 96361; 93005; 87040 ×2; 85025; 80048; 36415; 85610; 83605; 85730; 84484; 84145; 70450; 72125; 71045; 72170; 73502; 99285; U0003; J2543; J7030 ×3